=== PATIENT | female | born 1955 | race Caucasian/White ===

== ENCOUNTER 2018-06-21 12:50 | Emergency (ER) | payer BC, SELFPAY ==
[2018-06-21 12:52] VITALS: BP 161/79; PULSE 70; RESP 17; TEMP 36.8; O2SAT 100; BMI 19.6
[2018-06-21 12:59] VITALS: BP 149/74; PULSE 60; RESP 19; O2SAT 100
--- NOTE | 2018-06-21 13:15 | EKG12_ITS ---
Test Reason : PALPS Blood Pressure : / mmHG Vent. Rate : 068 BPM Atrial Rate : 068 BPM P-R Int : 140 ms QRS Dur : 090 ms QT Int : 410 ms P-R-T Axes : 065 062 061 degrees QTc Int : 435 ms Sinus rhythm with occasional Premature ventricular complexes Otherwise normal ECG Confirmed by TERRELL GALEAS ([id number]), editorial writer DONALDO CASTANEDA ([id number]) on 06/25/2018 8:31:26 AM Referred By: TEMITOPE/JEY Confirmed By:TERRELL GALEAS
--- NOTE | 2018-06-21 13:18 | EKG12_ITS ---
Test Reason : PALPS Blood Pressure : / mmHG Vent. Rate : 063 BPM Atrial Rate : 063 BPM P-R Int : 138 ms QRS Dur : 088 ms QT Int : 408 ms P-R-T Axes : 059 063 060 degrees QTc Int : 417 ms Normal sinus rhythm Possible Left atrial enlargement Borderline ECG Confirmed by TERRELL GALEAS ([id number]), science editor DONALDO CASTANEDA ([id number]) on 06/25/2018 8:31:15 AM Referred By: TEMITOPE/JEY Confirmed By:TERRELL GALEAS
--- NOTE | 2018-06-21 13:18 | ED.VISSUMM ---
- ER Visit Summary Date of Service: 06/21/18 Chief Complaint: Palpitations History of Present Illness: The patient is a 62 F presenting for evaluation secondary to palpitations. Patient reports that she has had a history of this in the past, she states that she saw a thermal intelligence analyst had a workup and they did not recommend any medications. Patient states that she is actually going to urgent care today because she injured her back 3 days ago while lifting. She states that she has some mild radiation to her left buttock denies any sort of bowel or bladder incontinence or fevers. She states that while she was at urgent care she was noted to have some occasional extra heartbeats and they recommended that she come immediately to the emergency department. She denies any recent infectious signs or symptoms abnormal weight loss weight gain heat or cold intolerance or changes in appetite. She is on no medications. Physical Examination: Vital signs are within normal limits, patient is afebrile. General: Patient is well-nourished well-developed and in no acute distress. Head: Normocephalic, atraumatic Eyes: Pupils equal round and reactive bilaterally, extra occular motion intact bialterally ENT: Moist mucous membranes Neck: Supple, no lymphadenopathy, no JVD, no meningismus CVS: Heart regular rate and rhythm, no murmurs, rubs or gallops, radial pulses 2+ bilaterally, occasional extrasystoles are noted Resp: Respirations nondistressed, lung sounds clear bilaterally Abdomen: Soft, nontender, nondistended, no palpable masses, normal bowel sounds Back: Nontender Extremities: Nontender, atraumatic, active full range of motion, no peripheral edema Skin: warm, no rashes, no petechia Neuro: Alert and oriented x 4, CN 2-12 intact, no lateralizing neurological defecits Psyc: Normal affect Test Results: EKG demonstrates a sinus rhythm of [address] segments normal T waves normal intervals and occasional PVCs. CBC chemistry and troponin are unremarkable, TSH normal. Emergency Department Course and Treatment: Patient presented secondary to palpitations. She did have evidence of occasional PVCs on telemetry monitoring as well as EKG. Workup was negative as noted above. I do not believe that she requires admission. Patient states that she has seen Dr. Ruggiero in the past, she was recommended to follow-up with him. Patient will be given a course of NSAID analgesia for her back pain. She will follow-up with primary care for that. Disposition: Discharge Impression: 1. Palpitations with PVCs 2. Lumbar strain This note was generated with [employer] dictation software. It may contain incorrect words, spelling, and punctuation that were not noted in review of the chart prior to signing ED Disposition - Plan for ED Patient: Disposition: Home or Assisted Living Chief Complaint: Palpitations Diagnosis: PVC (premature ventricular contraction) Instructions: Premature Ventricular Contractions Prescriptions: Naproxen [Naprosyn] 500 mg PO BID PRN #20 tab Additional Instructions: Followup with Dr. Ruggiero
--- NOTE | 2018-06-21 13:24 | NURSING ---
NO OLD EKGS
[2018-06-21 13:45] LABS: Absolute Lymphocyte Count 1.54 X10^3/ul (0.83-4.51); Absolute Neutrophil Count 3.2 X10^3/uL (2.0-7.7); Basophil# 0.02 X10^3/uL; Basophil% 0.4 % (0-1); Eosinophil# 0.08 X10^3/uL; Eosinophils% 1.6 % (0-5); Hematocrit 39.9 % (37-47); Lymphocyte # 1.54 X10^3/ul (4.0); Mean Corp Hgb Conc 32.6 g/gl (32-36); Mean Corpuscular Hgb 29.9 pg (27.0-32.0); Mean Corpuscular Volume 91.7 fL (81-99); Monocyte% 5.8 % (0-10); Neutrophil % 62.2 % (47-70); Platelet Count 150 K/mm3 (150-450); RBC Distribution Width CV 12.8 % (11.6-14.6); RBC Distribution Width SD 43.4 fl (35.1-43.9); Red Blood Count 4.35 M/mm3 (4.2-5.4); White Blood Count 5.1 K/mm3 (4.4-11.0)
[2018-06-21 13:46] LABS: POSITIVE COUNT NO; POSITIVE DIFFERENTIAL NO; POSITIVE MORPHOLOGY NO
[2018-06-21 14:01] LABS: Anion Gap 4 (5-15); BUN 17 mg/dL (7-18); BUN/Creat Ratio 28.8 RATIO (10-20); Calcium,Total 8.8 mg/dL (8.5-10.1); Chloride 105 mmol/L (98-107); Creatinine, Serum 0.59 mg/dL (0.55-1.02); EST Glomerular Filtration Rate 109 mL/min (>60); Est Glom Filt Rate - Afr Amer 132 mL/min (>60); Estimated Creatinine Clearance 77.57 ml/min; Glucose 95 mg/dL (74-106); Potassium 3.5 mmol/L (3.5-5.1); Sodium Level 140 mmol/L (136-145); Thyroid Stim Hormone (TSH) 2.14 uIU/mL (0.358-3.74)
[2018-06-21 15:01] VITALS: BP 120/71; PULSE 85; RESP 16; O2SAT 99
== END 2018-06-21 15:02 | disposition home or self-care (01) ==
PROVIDERS: Emergency Provider Emergency Medicine; Family Provider Internal Medicine; PCP Internal Medicine
DX: R00.2 Palpitations (principal); I49.3 Ventricular premature depolarization; S39.012A Strain of muscle, fascia and tendon of lower back, initial encounter; X50.9XXA Other and unspecified overexertion or strenuous movements or postures, initial encounter; Y93.9 Activity, unspecified; Y92.9 Unspecified place or not applicable
CPT/HCPCS: 80048; 84443; 84484; 85025; 93005; 99284; A4216

== ENCOUNTER → 2018-07-24 09:34 | Outpatient (CLI) | payer BC, SELFPAY ==
[2018-07-24 08:18] VITALS: BMI 20.3
--- NOTE | 2018-07-24 09:40 | RAD_ITS ---
STUDY: X-RAY CHEST REASON FOR EXAM: Female, 63 years old. Shortness of breath TECHNIQUE: 2 views COMPARISON: None. FINDINGS: The lungs are hyperinflated and emphysematous. There is no demonstrated pleural abnormality. Normal size heart. Normal mediastinum and asuncion. Normal visualized pulmonary arteries. Normal visualized aortic arch and descending thoracic aorta. Normal visualized thoracic spine. Normal visualized ribs, clavicles, and shoulders. There is no demonstrated abnormality of the visualized soft tissue structures of the upper abdomen. RAD/Chest PA and Lateral IMPRESSION: Emphysema. No pneumonia. Electronically Signed: Trevor Wilson MD at 5:40 EST Tel , Service support ,
[2018-07-24 11:15] LABS: BNP,B-Type NATRIURETIC PEPTIDE 31.4 pg/mL (0-100)
--- OUTSIDE RECORDS SUMMARY | 2018-09-18 17:32 | XMS RPT_ITS ---
:1955 Author Organization OHIP Support Name Relationship Address Phone [employer] [employer] [employer] Unavailable [address] + [address] + [place] [phone] [employer] [employer] [employer] Unavailable [address] + [address] MOOK Unavailable [address] + [place] [phone] [place] [employer] [employer] Unavailable [address] + [address] MOKO Unavailable [address] + [address] FARZANA Unavailable [address] + [place] [address] [place] [employer] Un[address] + [address] + [place], [place] [id number] [place], [place] [address]FARZANA Unavailable [address] + [place] [address] [place] [employer] Un[address] + [address] MOOK Un[address] + [place], [place] [phone] [place], [place] [address]FARZANA Unavailable [address] + [place] [address] [facility] [address] + [address] MOOK Unavailable [address] [phone] Un[address] + [place] [address] Care Team Providers Name Role Phone Zafar Grant Attending Unavailable Aníbal Smith Referring Unavailable Aníbal Smith Primary Care Unavailable Devonte Patricio Attending Unavailable Ganta, Sandrine Primary Care Unavailable Nancy Jackson Attending Unavailable Cristopher, [place] Attending Unavailable Ganta, Sandrine Referring Unavailable Cristopher, Kenneth Attending Unavailable Cristopher, [place] Referring Unavailable Ganta, Sandrien Primary Care Unavailable Cristopher, Kenneth Attending Unavailable Cristopher, Kenneth Referring Unavailable Ganta, Sandrine Primary Care Unavailable TESTRAKE, DIANNA Attending Unavailable GANTA, SANDRINE Attending Unavailable GANTA, SANDRINE Referring Unavailable GANTA, SANDRINE Referring Unavailable GANTA, SANDRINE Referring Unavailable GINETTE, HAYDEE (COOK LARDER) Referring Unavailable TESTRAKE, DIANNA Attending Unavailable TESTRAKE, DIANNA Referring Unavailable TESTRAKE, DIANNA Referring Unavailable GANTA, SANDRINE Attending Unavailable GANTA, SANDRINE Referring Unavailable GANTA, SANDRINE Referring Unavailable BERNHART, TAYLOR (COOK LARDER) Referring Unavailable BERNHART, TAYLOR (COOK LARDER) Attending Unavailable GANTA, SANDRINE Referring Unavailable BERNHART, TAYLOR (COOK LARDER) Referring Unavailable BERNHART, TAYLOR Attending Unavailable [facility] Referring Unavailable [facility] Primary Care Unavailable BERNHART, TAYLOR Referring Unavailable [facility] Primary Care Unavailable PROBLEMS PROBLEMS DATE TYPE CONDITION / CODE ATTENDING STATUS SOURCE 07/24/2018 Unknown R06.00 - Dyspnea, Cristopher, [place] Active [place] unspecified / Community R06.00(ICD-10) Hospital Repository 07/24/2018 Unknown R00.2 - Palpitations Cristopher, [place] Active [place] / R00.2(ICD-10) Community Hospital Repository 06/10/2018 Active Urinary tract BERNHART, Active [place] infection, site not [place] ([facility]) [facility] Other specified / [place] N39.0(ICD-10) Repository 09/18/2014 Active Overactive bladder / BERNHART, Active [place] N32.81(ICD-10) [place] ([facility]) Clinic Other [place] Repository 06/10/2018 Admitting Unknown / BERNHART, Active [place] [facility] diagnosis UNK(Unknown) [facility] [place] Repository 05/01/2018 Active Hypokalemia / NA Active [place] E87.6(ICD-10) Clinic Main [place] Repository 05/01/2018 Active Encounter for NA Active [place] screening for other Clinic Main viral diseases / [place] Z11.59(ICD-10) Repository 11/07/2017 Active 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 Main and autonomic [place] nervous system, Repository unspecified / D36.10(ICD-10) 11/07/2017 Active Pain in right ankle NA Active [place] and joints of right Clinic Main foot / [place] M25.571(ICD-10) Repository 10/25/2017 Active Encounter for NA Active [place] screening mammogram Clinic Main for malignant [place] neoplasm of breast / Repository Z12.31(ICD-10) 10/23/2017 Active Mixed hyperlipidemia NA [facility] / E78.2(ICD-10) Clinic Main [place] Repository 09/03/2017 Unknown Z02.1 - Encounter Zafar Grant Active [place] for pre-employment Community examination / Hospital Z02.1(ICD-10) Repository PROCEDURES PROCEDURES No Procedure Records FoundRESULTS RESULTS BNP,B-TYPE NATRIURETIC Collected: 07/24/2018 Status: F Source: [place] 9:59 AM [facility] REPOSITORY TYPE CODE TESTS RESULT OUT OF RANGE REFERENCE UNITS LAB L503.6620 0-100 pg/mL Normal B-TYPE 31.4 JOHN PEP Performed By: #### L503.6620 #### [facility] [address] [facility] [place], [address] CHEST PA AND LATERAL Observed: 07/24/2018 Status: F Source: [place] 9:37 AM [facility] REPOSITORY [facility] Imaging Services [address] [place] [address] Chest PA and Lateral MR#: [id number] Acct: [id number] Name: NIC CATES Rep #: [id number] : 1955 F 63 From: Trevor Wilson MD PCP: Sandrine Judd MD Status: REG CLI Study: Chest PA and Lateral Date of Exam: 07/24/18 Exam# [id number] Ordering Dr: Kenneth Nicholas MD STUDY: X-RAY CHEST REASON FOR EXAM: Female, 63 years old. Shortness of breath TECHNIQUE: 2 views COMPARISON: None. FINDINGS: The lungs are hyperinflated and emphysematous. There is no demonstrated pleural abnormality. Normal size heart. Normal mediastinum and asuncion. Normal visualized pulmonary arteries. Normal visualized aortic arch and descending thoracic aorta. Normal visualized thoracic spine. Normal visualized ribs, clavicles, and shoulders. There is no demonstrated abnormality of the visualized soft tissue structures of the upper abdomen. RAD/Chest PA and Lateral IMPRESSION: Emphysema. No pneumonia. Electronically Signed: Trevor Wilson MD at 5:40 EST Tel , Service support , CC: Sandrine Judd MD; Kenneth Nicholas MD Oceanographer Physical: Signed CARDIOLOGY VISIT Observed: 07/24/2018 Status: F Source: [place] REPORT 9:20 AM [facility] Heart [address] [place] [address] OFFICE VISIT Date of Service: 07/24/18 MR#: [id number] Acct: [id number] Name: NIC CATES Rep #: [id number] : 1955 Provider: Kenneth Nicholas MD Age/Sex: 63/F Location: [facility] [place] Status: Signed HPI HPI Chief Complaint: Initial visit Details: NIC CATES, is a 63 F who presents to the office today for an initial visit for evaluation of shortness of breath as well as palpitations. She said that she started developing this about a year and a half ago and saw a digital developer at the [facility] she had a 24-hour Holter monitor placed with demonstrated an average heart rate of 69 bpm and sinus rhythm minimum heart rate of 45 bpm and maximal heart rate of 140 bpm. Occasional ventricular ectopic beats were noted. The patient did complain of some shortness of breath which did not correlate with arrhythmias. She also underwent a stress echocardiographic evaluation where his ejection fraction was noted to be normal at rest and she exercised to 10.1 metabolic equivalents with no evidence of ischemia. Her estimated resting ejection fraction was noted with 60% with stage I diastolic dysfunction. She says that she started having these episodes of shortness of breath and palpitations again and wanted to know whether there was a cardiac etiology. She was recently seen in the emergency room cardiac enzymes were normal TSH was normal and potassium was 3.5. She has had no dizziness or diaphoresis no near syncope or syncope her blood pressure has been under good control. Her physical exam today demonstrates clear lung mclean regular rate and rhythm no pedal edema no midsystolic click present. Intake Vital Signs07/24/18 Height 5 ft 3 in 07/24/18 Weight: 115 lb 07/24/18 Body Mass Index (BMI) 20.3 07/24/18 Blood Pressure 126/7 H 07/24/18 Respiratory Rate 16 07/24/18 Pulse Rate 60 Intake Visit Reasons: recent ER for PVC, self ref'd Allergies amoxicillin Allergy (Verified 07/24/18 08:18) Unknown codeine Allergy (Verified 07/24/18 08:18) Unknown nitrofurantoin [From Macrobid] Allergy (Verified 07/24/18 08:18) Shortness of breath Sulfa (Sulfonamide Antibiotics) Allergy (Verified 07/24/18 08:18) Rash sulfamethoxazole [From Bactrim] Allergy (Verified 07/24/18 08:18) Rash trimethoprim [From Bactrim] Allergy (Verified 07/24/18 08:18) Rash Medications loratadine 10 mg tablet 10 mg PO QDAY 09/03/17 [History Confirmed 07/24/18] conjugated estrogens 0.625 mg/gram vaginal cream VAGINAL 30 Days #30 g 07/22/18 [History Confirmed 07/24/18] ergocalciferol (vitamin D2) 50,000 unit capsule PO 90 Days #13 cap 07/22/18 [History Confirmed 07/24/18] ascorbic acid (vitamin C) 500 mg capsule mg PO cap 07/24/18 [History Confirmed 07/24/18] cranberry 500 mg capsule 500 mg PO BID 07/24/18 [History Confirmed 07/24/18] [facility] Medical History Premature ventricular beats (Chronic) Arthritis (Chronic) Vertigo (Chronic) Seasonal allergies (Chronic) Head injury (Resolved) Surgical History History of bladder surgery (Resolved) History of hysterectomy (Resolved) History of tonsillectomy (Resolved) Liver donor (Resolved 2007) Family History Father Hypertension Mother Hypertension Brother Hypertension Social History Smoking Status: Former smoker quit date: 08/27/73 alcohol intake: current alcohol intake frequency: a few times a month ROS Const Const: Negative for fatigue, weakness, difficulty sleeping, frequent falls, excessive sweating or headache(s) Eyes Eyes: Negative for loss of peripheral vision, transient loss of vision, blurry vision, tunnel vision or double vision ENT ENT: Negative for headache(s), dizziness, Nosebleed/epistaxis or balance problems Cardio Chest Pain: No Palpitations: Yes feels like its: pounding, thumping Edema: None Muscle aches with walking: None Resp Respiratory: Positive for SOB with activity (Increase in [place]OB[place]); negative for SOB at rest, SOB orthopnea\SOB lying down, paroxysmal nocturnal dyspnea or Cough GI GI: Negative nausea, heartburn, black,tarry stools or vomiting : Negative for hematuria Musc Musc: Negative for balance problems, muscle aches/ myalgia, muscle weakness or joint pain Skin Skin: Negative non-healing lesions, unusual bruising or rash Neuro Neuro: Negative for weakness, frequent falls, headache(s), blurry vision, double vision, dizziness, lightheadedness, orthostatic symptoms, near syncope, syncope or lack of coordination [place] Hematologic/Lymphatic: Negative for easy bruising or easy bleeding Endo Endo: Negative for fatigue, excessive sweating or increased thirst/drinking Psych Psych: Negative for anxiety or depression Allergy Allergy/Immunology: Negative for hives, Negative for rash Cardiology Exam Const Appearance: cooperative, healthy appearing, well developed, well groomed and no acute distress Nutritional Appearance: well nourished and average body habitus Orientation: alert, awake and oriented x3 Head Head: normal to inspection, normocephalic and atraumatic Ears: hearing grossly normal bilaterally and external ears normal Nose: external nose normal, nasal mucous membranes and turbinates normal, nares normal, septum normal, no nasal discharge Face and Sinus: face symmetric Mouth: oral mucosae normal, tongue normal, oropharynx normal and moist mucous membranes Teeth and gingiva: dentition normal Throat: posterior oropharynx normal, tonsils normal and uvula midline Eyes General: appearance normal, both eyes and all related structures Eyelids: eyelids normal Conjunctivae: conjunctivae normal Pupils: PERRL, normal by confrontation and accommodation normal EOM: EOM intact bilaterally Neck Neck: normal visual inspection, trachea midline and no JVD JVD: +5 Carotids: normal carotid upstroke and bounding pulses Chest Chest inspection: normal inspection of the chest, symmetric chest movement and normal respiratory effort Auscultation: Bilateral: Clear to Auscultation Cardio Palpation: normal PMI Rate: regular rate Rhythm: regular rhythm Heart sounds: S1 normal, S2 normal and normal, physiologic split S2; negative rub, gallop or murmur GI GI: normal to inspection, soft, no hepatosplenomegaly and bowel sounds present Neuro General: alert, awake, oriented x3, no focal sensory deficit, gait normal and moves all extremities Skin Skin: no rashes or lesions noted Extremities Pulses: Normal: Right Femoral Pulse, Left Femoral Pulse, Right Dorsalis Pedis Pulse, Left Dorsalis Pedis Pulse, Right Posterior Tibial Pulse, Left Posterior Tibial Pulse, Right Radial Pulse, Left Radial Pulse Lower Extremity Edema: None: Bilateral Musculoskel Musculoskeletal: No joint tenderness Psych Psychological: normal affect Assessment AND Plan 1. Dyspnea R06.00 Plan She has had some episodes of which do not necessarily appear to be exertionally related. My recommendation will be for us to obtain a chest x-ray as well as a natruretic peptide level. Her previous echocardiogram was noted to be normal and I do not think there is a reason to repeat this. Depending on the findings further recommendations will be made. Orders Orders: 2. Intermittent palpitations R00.2 Plan She has complained of intermittent palpitations. I would recommend that we obtain a 24-hour Holter monitor to characterize the above. Depending on these findings further recommendations will be made. At this time I did reassure her that in view of the infrequency based on the previous 24-hour Holter monitor as well as a preserved ejection fraction I do not think there is a reason to pursue any medical management. Potassium intake should be increased [id number] as well as with potassium supplementation. Thank you for allowing me to participate in the care of your patient. Please don't hesitate to call if any issues arise Orders Orders: Plan Detail Other Medications New: Follow Up 6 Weeks (rapid outsole stitcher) Coding Level of Care Code Off vis,new,level 4 Diagnoses Dyspnea R06.00 Intermittent palpitations R00.2 Coding Level of Care Code Off vis,new,level 4 Diagnoses Dyspnea R06.00 Intermittent palpitations R00.2 07/24/18 0920 <Electronically signed by Kenneth Nicholas MD> Date Kenneth Nicholas MD Cosigner Signature: Date (if applicable) CC: Sandrine Judd MD 12 LEAD ELECTROCARDIOGRAM Observed: 2018 Status: F Source: [place] 8:32 AM [facility] Cardiovascular Services [address] [place] [id number] 12 Lead EKG 06/21/18 1305 MR#: [id number] Acct: [id number] Name: NIC CATES Rep #: [id number] : 1955 62 From: Terry Galeas MD Attending Dr: Status: DEP ER Ordering Dr: Devonte Patricio MD Date: 06/21/18 Location: ED Sex: F C Admitted: Test Reason : PALPS Blood Pressure : / mmHG Vent. Rate : 068 BPM Atrial Rate : 068 BPM P-R Int : 140 ms QRS Dur : 090 ms QT Int : 410 ms P-R-T Axes : 065 062 061 degrees QTc Int : 435 ms Sinus rhythm with occasional Premature ventricular complexes Otherwise normal ECG Confirmed by TERRY GALEAS ([id number]), electronic news gathering editor DONALDO CASTANEDA ([id number]) on 2018 8:31:26 AM Referred By: TEMITOPE/JEY Confirmed By:TERRY GALEAS 06/25/18 0831 Date Terry Galeas MD CC: Sandrine Judd MD; Devonte Patricio Signed 12 LEAD ELECTROCARDIOGRAM Observed: 2018 Status: F Source: [place] 8:31 AM [facility] Cardiovascular Services [address] [place] [address] 12 Lead EKG 06/21/18 1306 MR#: [id number] Acct: [id number] Name: NIC CATES Rep #: [id number] : 1955 62 From: Terry Galeas MD Attending Dr: Status: DEP ER Ordering Dr: Devonte Patricio MD Date: 06/21/18 Location: ED Sex: F C Admitted: Test Reason : PALPS Blood Pressure : / mmHG Vent. Rate : 063 BPM Atrial Rate : 063 BPM P-R Int : 138 ms QRS Dur : 088 ms QT Int : 408 ms P-R-T Axes : 059 063 060 degrees QTc Int : 417 ms Normal sinus rhythm Possible Left atrial enlargement Borderline ECG Confirmed by TERRY GALEAS ([id number]), electronic news gathering editor DONALDO CASTANEDA ([id number]) on 2018 8:31:15 AM Referred By: [place] Confirmed By:TERRY GALEAS 06/25/18 0831 Date Terry Galeas MD CC: Sandrine Judd MD; Devonte Patricio Signed EMERGENCY DEPARTMENT Observed: 06/21/2018 Status: F Source: [place] SUMMARY 5:47 PM [facility] REPOSITORY [facility] Medical Records Department [address] [place] [address] Emergency Department Summary 06/21/18 1318 MR#: [id number] Acct: [id number] Name: LOANNIC Kim Rep #: [id number] : 1955 62 From: Devonte Patricio MD PCP: Sandrine Judd MD Status: DEP ER - ER Visit Summary Date of Service: 06/21/18 Chief Complaint: Palpitations History of Present Illness: The patient is a 62 F presenting for evaluation secondary to palpitations. Patient reports that she has had a history of this in the past, she states that she saw a digital developer had a workup and they did not recommend any medications. Patient states that she is actually going to urgent care today because she injured her back 3 days ago while lifting. She states that she has some mild radiation to her left buttock denies any sort of bowel or bladder incontinence or fevers. She states that while she was at urgent care she was noted to have some occasional extra heartbeats and they recommended that she come immediately to the emergency department. She denies any recent infectious signs or symptoms abnormal weight loss weight gain heat or cold intolerance or changes in appetite. She is on no medications. Physical Examination: Vital signs are within normal limits, patient is afebrile. General: Patient is well-nourished well-developed and in no acute distress. Head: Normocephalic, atraumatic Eyes: Pupils equal round and reactive bilaterally, extra occular motion intact bialterally ENT: Moist mucous membranes Neck: Supple, no lymphadenopathy, no JVD, no meningismus CVS: Heart regular rate and rhythm, no murmurs, rubs or gallops, radial pulses 2+ bilaterally, occasional extrasystoles are noted Resp: Respirations nondistressed, lung sounds clear bilaterally Abdomen: Soft, nontender, nondistended, no palpable masses, normal bowel sounds Back: Nontender Extremities: Nontender, atraumatic, active full range of motion, no peripheral edema Skin: warm, no rashes, no petechia Neuro: Alert and oriented x 4, CN 2-12 intact, no lateralizing neurological defecits Psyc: Normal affect Test Results: EKG demonstrates a sinus rhythm of [address] segments normal T waves normal intervals and occasional PVCs. CBC chemistry and troponin are unremarkable, TSH normal. Emergency Department Course and Treatment: Patient presented secondary to palpitations. She did have evidence of occasional PVCs on telemetry monitoring as well as EKG. Workup was negative as noted above. I do not believe that she requires admission. Patient states that she has seen Dr. Ruggiero in the past, she was recommended to follow-up with him. Patient will be given a course of NSAID analgesia for her back pain. She will follow-up with primary care for that. Disposition: Discharge Impression: 1. Palpitations with PVCs 2. Lumbar strain This note was generated with Gera-ITation software. It may contain incorrect words, spelling, and punctuation that were not noted in review of the chart prior to signing ED Disposition - Plan for ED Patient: Disposition: Home or Assisted Living Chief Complaint: Palpitations Diagnosis: PVC (premature ventricular contraction) Instructions: Premature Ventricular Contractions Prescriptions: Naproxen [Naprosyn] 500 mg PO BID PRN #20 tab Additional Instructions: Followup with Dr. Ruggiero What to do if you have Problems For any increased pain, shortness of breath, bleeding, nausea or vomiting, chest pain, or any unexpected problems, contact your Primary Care Provider. Call [facility] ([phone]) or report to the closest Emergency Room. Call 911 if necessary. 06/21/18 1747 <Electronically signed by Devonte Patricio MD> Date Devonte Patricio MD Cosigner Signature (If Indicated): Date CC: Sandrine Judd MD CBC W/DIFF, AUTOMATED Collected: 06/21/2018 Status: F Source: [place] 1:30 PM [facility] REPOSITORY TYPE CODE TESTS RESULT OUT OF RANGE REFERENCE UNITS LAB L100.1000 4.4-11.0 K/mm3 Normal WBC 5.1 LAB L100.1200 4.2-5.4 M/mm3 Normal RBC 4.35 LAB L100.1300 12.0-15.0 g/dl Normal HGB 13.0 LAB L100.1400 37-47 % Normal HCT 39.9 LAB L100.1500 81-99 fL Normal MCV 91.7 LAB L100.1600 27.0-32.0 pg Normal MCH 29.9 LAB L100.1700 32-36 g/gl Normal MCHC 32.6 LAB L100.1810 11.6-14.6 % Normal RDW CV 12.8 LAB L100.1820 35.1-43.9 fl Normal RDW SD 43.4 LAB L100.1900 150-450 K/mm3 Normal PLT 150 LAB L100.2000 6.2-12.0 fl Normal MPV 10.0 LAB L100.2100 47-70 % Normal NEUT% 62.2 LAB L100.2200 19-41 % Normal LY% 30.0 LAB L100.2300 0-10 % Normal MONO% 5.8 LAB L100.2400 0-5 % Normal EO% 1.6 LAB L100.2500 0-1 % Normal BASO% 0.4 LAB L100.2550 0.0-0.9 % Normal IM GRAN % 0.000 Result Comment: IG% - Immature Granulocytes (promyelocytes, myelocytes and metamyelocytes) > 1% indicates that a LEFT SHIFT is Present. LAB L100.2620 2.0-7.7 X10 3/uL Normal Absolute Neut 3.2 LAB L100.2720 0.83-4.51 X10 3/ul Normal Absolute Lymph 1.54 Performed By: #### L100.0100 #### [facility] [address] [place], [place], [id number] BASIC METABOLIC Collected: 06/21/2018 Status: F Source: [place] PROFILE (BMP) 1:30 PM [facility] REPOSITORY TYPE CODE TESTS RESULT OUT OF RANGE REFERENCE UNITS LAB L501.0100 74-106 mg/dL Normal GLU 95 Result Comment: Please note revised GLUCOSE reference range effective 2017. LAB L501.1000 7-18 mg/dL Normal BUN 17 LAB L501.1100 0.55-1.02 mg/dL Normal CREAT,SERUM 0.59 Result Comment: The validity of the calculated GFR AND GFRAA in patients over 70 years has not been determined. Clinical correlation is essential. LAB L501.1110 >60 mL/min Normal EST GFR 109 Result Comment: Non- GFR Calc LAB L501.1115 >60 mL/min Normal EST GFR - AA 132 Result Comment: GFR Calc LAB L501.1255 ml/min Normal Estimated CRCL 77.57 LAB L501.1300 10-20 RATIO High BUN/CRE 28.8 LAB L501.2200 8.5-10 mg/dL Normal .1 CA 8.8 LAB L501.5300 136-14 mmol/L Normal 5 NA 140 LAB L501.5600 3.5-5. mmol/L Normal 1 K 3.5 LAB L501.5900 98-107 mmol/L Normal CL 105 LAB L501.6100 21.0-3 mmol/L Normal 2.0 CO2 31.0 LAB L501.6200 5-15 Low GAP 4 Performed By: #### L500.2500, L501.4010, L501.9520 #### [facility] [address] [place], [place], [id number] TROPONIN-I Collected: 06/21/2018 Status: F Source: [place] 1:30 PM [facility] REPOSITORY TYPE CODE TESTS RESULT OUT OF RANGE REFERENCE UNITS LAB L501.4010 <0.045 ng/mL Normal < 0.015 TROPONIN-I Result Comment: TROPONIN-I EXPECTED VALUES <0.045 Negative 0.045 - 0.590 Consistent with Cardiac Damage > OR = 0.600 Critical Value Not every elevated troponin is indicative of VA. These values should be used with clinical judgement in examining the patient's clinical picture for diagnosis. To establish a diagnosis of VA versus myocardial injury, there must be a demonstrated rise and/or fall in the troponin values, in addition to ischemic symptoms, EKG changes, new regional wall motion abnormality, and/or angiographical evidence. PLEASE NOTE: REFERENCE RANGES EDITED 18 Performed By: #### L500.2500, L501.4010, L501.9520 #### [facility] [address] [facility] [place], [place], [id number] THYROID STIM HORMONE Collected: 06/21/2018 Status: F Source: [place] (TSH) 1:30 PM [facility] REPOSITORY TYPE CODE TESTS RESULT OUT OF RANGE REFERENCE UNITS LAB L501.9520 0.358-3.74 uIU/mL Normal TSH 2.14 Performed By: #### L500.2500, L501.4010, L501.9520 #### [facility] [address] [facility] [place], [place], [id number] PROGRESS Observed: 06/21/2018 Status: COMPLETED Source: [place] 12:36 PM [facility] REPOSITORY HNO ID: [id number] Author: Caren Peterson Service: (none) Author Type: Physician Sewing Machine Assembler Type: Progress Notes Filed: 06/24/2018 8:26 AM Note Text: 06/21/2018 Patient presents with: Back Pain SUBJECTIVE: This is a 62 year old that is here today for Complaint(s) of left lower back pain x 3-4 days. She was seen by the chiropractor twice and no significant . She also mentions feeling like her heart rate has been irregular the last 24 hours. Admits to feeling somewhat SOB and occasionally dizzy. Denies chest pain. Hx of possible PVCs, uncertain. No hx of Afib. PAST MEDICAL HISTORY Diagnosis Date - Arthritis - Bladder infection - Internal hemorrhoids without mention of complication - Intestinal infection due to Clostridium difficile 2007 - PMH - PAST MEDICAL HISTORY OF vertigo - PMH - PAST MEDICAL HISTORY OF prolapsed bladder - Skin cancer - Unspecified constipation - UTI (urinary tract infection) ALLERGIES Amoxil [Amoxicillin]; Bactrim [Sulfamethoxazole-Trimethoprim]; Codeine; Macrobid [Nitrofurantoin Monohyd/M-Cryst]; Penicillins; Zithromax Z-Juliet [Azithromycin] MEDICATIONS Current Outpatient Prescriptions: conjugated estrogens (PREMARIN) vaginal cream Use 0.5 g vaginally twice a week. ciprofloxacin HCl (CIPRO ORAL) Take by mouth. predniSONE (DELTASONE) 20 mg tablet Prednisone 40 mg (2-20mg tablets) po QD for 5 days (Patient not taking: Reported on 03/27/2018 ) potassium chloride SR (MICRO-K) 10 mEq CR capsule Take 1 capsule by mouth once daily. (Patient not taking: Reported on 06/10/2018 ) ergocalciferol, vitamin D2, (VITAMIN D) 50,000 unit capsule Take 1 capsule by mouth once each week. TAKE ON MONDAYS urea (CARMOL) 40 % crea Apply 1 application to affected area as needed. (Patient not taking: Reported on 03/27/2018 ) conjugated estrogens (PREMARIN) vaginal cream Use 0.5 g vaginally once each week. LORazepam (ATIVAN) 0.5 mg tab Take 1 tablet by mouth three times daily as needed. (Patient not taking: Reported on 03/27/2018 ) loratadine (CLARITIN) 10 mg ORAL tablet Take one(1) tablet daily as needed for allergy symptoms. (Patient not taking: No sig reported) No current facility-administered medications for this visit. 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 OBJECTIVE: BP 100/80 Pulse 70 Temp 36.3 ?C (97.4 ?F) (Left Tympanic) Resp 16 Wt 51.7 kg (114 lb) LMP 01/30/2006 BMI 20.19 kg/m? APPEARANCE Well appearing, alert, in no acute distress, well-hydrated, well nourished. HEART regular rate, irregular rhythm, no murmur ASSESSMENT/PLAN: 1. Irregular heart rhythm - ICD9: 427.9, ICD10: I49.9 Question PVCs, however, as she is symptomatic recommend evaluation in ER for higher level of care Patient refuses to squad. Patient referred to ER, agrees to go. The patient indicates understanding of these issues and agrees with the plan. Caren Peterson PA-C CNOV Observed: 06/21/2018 Status: COMPLETED Source: [place] 12:30 PM [facility] REPOSITORY Office Visit (WSTR) NIC CATES ([id number]) 1955 F Date Time Provider Department 06/21/18 12:30 PM CAREN PETERSON) [facility] During your visit today, we recorded the following information about you: Temperature Pulse Respiration Blood pressure 97.4 degrees 70/minute 16/minute 100/80 Weight 51.7 kg Caren Peterson PA-C 06/24/2018 8:26 AM Signed 06/21/2018 Patient presents with: Back Pain SUBJECTIVE: This is a 62 year old that is here today for Complaint(s) of left lower back pain x 3-4 days. She was seen by the chiropractor twice and no significant . She also mentions feeling like her heart rate has been irregular the last 24 hours. Admits to feeling somewhat SOB and occasionally dizzy. Denies chest pain. Hx of possible PVCs, uncertain. No hx of Afib. PAST MEDICAL HISTORY Diagnosis Date - Arthritis - Bladder infection - Internal hemorrhoids without mention of complication - Intestinal infection due to Clostridium difficile 2007 - PMH - PAST MEDICAL HISTORY OF vertigo - PMH - PAST MEDICAL HISTORY OF prolapsed bladder - Skin cancer - Unspecified constipation - UTI (urinary tract infection) ALLERGIES Amoxil [Amoxicillin]; Bactrim [Sulfamethoxazole-Trimethoprim]; Codeine; Macrobid [Nitrofurantoin Monohyd/M-Cryst]; Penicillins; Zithromax Z-Juliet [Azithromycin] MEDICATIONS Current Outpatient Prescriptions: conjugated estrogens (PREMARIN) vaginal cream Use 0.5 g vaginally twice a week. ciprofloxacin HCl (CIPRO ORAL) Take by mouth. predniSONE (DELTASONE) 20 mg tablet Prednisone 40 mg (2-20mg tablets) po QD for 5 days (Patient not taking: Reported on 03/27/2018 ) potassium chloride SR (MICRO-K) 10 mEq CR capsule Take 1 capsule by mouth once daily. (Patient not taking: Reported on 06/10/2018 ) ergocalciferol, vitamin D2, (VITAMIN D) 50,000 unit capsule Take 1 capsule by mouth once each week. TAKE ON MONDAYS urea (CARMOL) 40 % crea Apply 1 application to affected area as needed. (Patient not taking: Reported on 03/27/2018 ) conjugated estrogens (PREMARIN) vaginal cream Use 0.5 g vaginally once each week. LORazepam (ATIVAN) 0.5 mg tab Take 1 tablet by mouth three times daily as needed. (Patient not taking: Reported on 03/27/2018 ) loratadine (CLARITIN) 10 mg ORAL tablet Take one(1) tablet daily as needed for allergy symptoms. (Patient not taking: No sig reported) No current facility-administered medications for this visit. 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 OBJECTIVE: BP 100/80 Pulse 70 Temp 36.3 ?C (97.4 ?F) (Left Tympanic) Resp 16 Wt 51.7 kg (114 lb) LMP 01/30/2006 BMI 20.19 kg/m? APPEARANCE Well appearing, alert, in no acute distress, well- hydrated, well nourished. HEART regular rate, irregular rhythm, no murmur ASSESSMENT/PLAN: 1. Irregular heart rhythm - ICD9: 427.9, ICD10: I49.9 Question PVCs, however, as she is symptomatic recommend evaluation in ER for higher level of care Patient refuses to squad. Patient referred to ER, agrees to go. The patient indicates understanding of these issues and agrees with the plan. Caren Peterson PA-C Referring Provider: SELF [[id number]] Allergies As of Date: 06/21/2018 Noted Allergy Reaction AMOXIL (AMOXICILLIN) 05/10/2005 4 - Hives Comments: uncertain BACTRIM (SULFAMETHOXAZOLE-TRIMETH*04/08/2018 4 - Hives Comments: Hives to torso and legs CODEINE 06/15/2005 8 - GI Upset MACROBID (NITROFURANTOIN MONOHYD/*04/08/2018 14 - Other: See Comments Comments: Developed weakness, fatigue, SOB, fever, nausea PENICILLINS 06/15/2005 2 - Rash ZITHROMAX Z-JULIET (AZITHROMYCIN) 06/15/2005 8 - GI Upset Comments: She can take this Date Reviewed: 06/21/2018 Reviewed by: Denisha Sanchez Ma - Fully Assessed Reason for Visit: Back Pain [12] Primary Visit Diagnosis:Irregular heart rhythm [I49.9] Prescriptions as of 06/21/2018 Sig: CONJUGATED ESTROGENS 0.625 MG* Use 0.5 g vaginally twice a w* CIPRO ORAL Take by mouth. PREDNISONE 20 MG TABLET Prednisone 40 mg (2-20mg tabl* Patient not taking: Reported on 03/27/2018 POTASSIUM CHLORIDE ER 10 MEQ * Take 1 capsule by mouth once * Patient not taking: Reported on 06/10/2018 ERGOCALCIFEROL (VITAMIN D2) 5* Take 1 capsule by mouth once * UREA 40 % TOPICAL CREAM Apply 1 application to affect* Patient not taking: Reported on 03/27/2018 CONJUGATED ESTROGENS 0.625 MG* Use 0.5 g vaginally once each* LORAZEPAM 0.5 MG TABLET Take 1 tablet by mouth three * Patient not taking: Reported on 03/27/2018 LORATADINE 10 MG TABLET Take one(1) tablet daily as n* Patient not taking: No sig reported Problem List As Of Date 06/21/2018 Noted Resolved Osteopenia [M85.80] INVALID FOR* More... Constipation [K59.00] INVALID FOR* Donor for liver transplant [Z52.6] INVALID FOR* Abdominal adhesions [K66.0] INVALID FOR* Abdominal pain [R10.9] INVALID FOR* OA (osteoarthritis) [M19.90] INVALID FOR* Lumbar stenosis [M48.061] INVALID FOR* More... Low back pain radiating to left leg [M54.5, M79*INVALID FOR* Overactive bladder [N32.81] INVALID FOR* Ganglion cyst of finger of right hand [M67.441] INVALID FOR* UTI (urinary tract infection) [N39.0] INVALID FOR* Encounter Status:Closed by CAREN PETERSON PA-C on 06/24/18 SHERWIN Observed: 06/13/2018 Status: COMPLETED Source: [place] 12:00 AM [facility] [place] REPOSIT[facility] Telephone (UROLAE) NIC CATES ([id number]) 1955 F Date Time Provider Department 06/13/18 TAYOLR CEVALLOS CNP During your visit today, we recorded the following information about you: Taylor Cevallos APRN.IVÁN 06/13/2018 12:33 PM Signed Please call patient, Renal US is normal, urine culture is negative for infection. Terrie Mosquera Cma 06/13/2018 12:42 PM Signed I have attempted to contact this patient by phone to return their call, schedule an appointment, discuss lab results, etc. Left message to call back. Terrie Mosquera [facility] 06/14/2018 12:04 PM Signed Left message to call office to advise patient of below. Terrie Lima RN, RN 06/14/2018 12:25 PM Addendum Left vm on patient's voicemail regarding results below and to call the office if she has any questions. MARIO Samuel [facility] 06/20/2018 10:09 AM Signed Patient notified. Terrie Mosquera Cma Allergies As of Date: 06/13/2018 Noted Allergy Reaction AMOXIL (AMOXICILLIN) 05/10/2005 4 - Hives Comments: uncertain BACTRIM (SULFAMETHOXAZOLE-TRIMETH*04/08/2018 4 - Hives Comments: Hives to torso and legs CODEINE 06/15/2005 8 - GI Upset MACROBID (NITROFURANTOIN MONOHYD/*04/08/2018 14 - Other: See Comments Comments: Developed weakness, fatigue, SOB, fever, nausea PENICILLINS 06/15/2005 2 - Rash ZITHROMAX Z-JULIET (AZITHROMYCIN) 06/15/2005 8 - GI Upset Comments: She can take this Date Reviewed: 06/10/2018 Reviewed by: Taylor ([facility]) Mart - Fully Assessed Reason for Visit: Results [95] Prescriptions as of 06/13/2018 Sig: CONJUGATED ESTROGENS 0.625 MG* Use 0.5 g vaginally twice a w* CIPRO ORAL Take by mouth. PREDNISONE 20 MG TABLET Prednisone 40 mg (2-20mg tabl* Patient not taking: Reported on 03/27/2018 POTASSIUM CHLORIDE ER 10 MEQ * Take 1 capsule by mouth once * Patient not taking: Reported on 06/10/2018 ERGOCALCIFEROL (VITAMIN D2) 5* Take 1 capsule by mouth once * UREA 40 % TOPICAL CREAM Apply 1 application to affect* Patient not taking: Reported on 03/27/2018 CONJUGATED ESTROGENS 0.625 MG* Use 0.5 g vaginally once each* LORAZEPAM 0.5 MG TABLET Take 1 tablet by mouth three * Patient not taking: Reported on 03/27/2018 LORATADINE 10 MG TABLET Take one(1) tablet daily as n* Patient not taking: No sig reported Problem List As Of Date 06/13/2018 Noted Resolved Osteopenia [M85.80] INVALID FOR* More... Constipation [K59.00] INVALID FOR* Donor for liver transplant [Z52.6] INVALID FOR* Abdominal adhesions [K66.0] INVALID FOR* Abdominal pain [R10.9] INVALID FOR* OA (osteoarthritis) [M19.90] INVALID FOR* Lumbar stenosis [M48.061] INVALID FOR* More... Low back pain radiating to left leg [M54.5, M79*INVALID FOR* Overactive bladder [N32.81] INVALID FOR* Ganglion cyst of finger of right hand [M67.441] INVALID FOR* UTI (urinary tract infection) [N39.0] INVALID FOR* Encounter Status:Closed by TAYLOR CEVALLOS on 06/13/18 PROGRESS Observed: 06/12/2018 Status: COMPLETED Source: [place] 1:43 PM [facility] REPOSITORY O ID: [id number] Author: Estelle Brown Rdms Service: (none) Author Type: (none) Type: Progress Notes Filed: 06/12/2018 1:44 PM Note Text: Radiology Service Progress Note PATIENT NAME: Nic Cates DATE OF SERVICE: June 12, 2018 TIME: 1:43 PM PATIENT IDENTITY VERIFICATION COMPLETED USING TWO (2) METHODS: Patient confirmed name verbally and Date of . PATIENT GENDER DATA: Female. status: : No status: NO. PATIENT RELEVANT IMPLANT DATA REVIEWED: Not Applicable RADIOLOGY DEPARTMENT: Ultrasound PERIPHERAL IV DATA: Not applicable SIGNED BY: Estelle Brown Rdms June 12, 2018 1:43 PM US KIDNEY/BLADDER Observed: 06/12/2018 Status: F Source: [place] 1:43 PM [facility] REPOSITORY * * *Final Report* * * DATE OF EXAM: Jun 12 2018 1:43PM [facility] 1055 - US KIDNEY/BLADDER / PROCEDURE REASON: Urinary tract infection without hematuria, site unspecified * * * * Physician Interpretation * * * * EXAMINATION: RENAL ULTRASOUND CLINICAL HISTORY: Urinary tract infection without hematuria, site unspecified TECHNIQUE: Sonography of the kidneys and urinary bladder was performed. Images were obtained and stored in a permanent archive. MQ: UR_1 COMPARISON: CT abdomen and pelvis dated 05/03/2012. RESULT: Right Kidney: -Renal length: 11.4 cm -Parenchyma: Normal parenchymal echogenicity. Normal parenchymal thickness. -Collecting system: No hydronephrosis. -Calculus: No echogenic, shadowing calculus. -Lesion: There is an approximately 1.1 x 1.0 x 1.0 cm right renal cyst. Left Kidney: -Renal length: 11.7 cm -Parenchyma: Normal parenchymal echogenicity. Normal parenchymal thickness. -Collecting system: No hydronephrosis. -Calculus: No echogenic, shadowing calculus. -Lesion: None. Bladder: There is a prevoid urinary bladder volume of 6.3 cc. Postvoid residual of 1.1 cc. IMPRESSION: No hydronephrosis. Simple right renal cyst. 1.1 cc postvoid residual. Oceanographer Physical[facility] Transcribe Date/Time: Jun 12 2018 2:00P Dictated by : RINA URBAN MD This examination was interpreted and the report reviewed and electronically signed by: RINA URBAN MD on Jun 12 2018 4:18PM EST [id number] Observed: 06/12/2018 Status: COMPLETED Source: [place] 12:00 AM [facility] REPOSITORY Telephone (UROLAE) NIC CATES ([id number]) 1955 F Date Time Provider Department 06/12/18 TAYLOR CEVALLOS (CARLOS ABERNATHY During your visit today, we recorded the following information about you: Taylor Cevallos APRN.CNP 06/12/2018 2:05 PM Signed Please call patient, urine culture is negative for infection. Jacky Nguyen, RN, RN 06/12/2018 2:10 PM Signed Left message on phone to return call to office. Regarding result of MARICRUZ Jacky Nguyen RN Blanca Anderson Utility Agent 06/13/2018 9:17 AM Signed Lm to return our call to inform of message below Catrachita Lima RN, RN 06/14/2018 12:12 PM Signed Informed patient of C+S results, Satisfied with results, [facility], requests that she be contacted when those results come back, will wait to hear back on those tests, per patient. Catrachita Lima RN Allergies As of Date: 06/12/2018 Noted Allergy Reaction AMOXIL (AMOXICILLIN) 05/10/2005 4 - Hives Comments: uncertain BACTRIM (SULFAMETHOXAZOLE-TRIMETH*04/08/2018 4 - Hives Comments: Hives to torso and legs CODEINE 06/15/2005 8 - GI Upset MACROBID (NITROFURANTOIN MONOHYD/*04/08/2018 14 - Other: See Comments Comments: Developed weakness, fatigue, SOB, fever, nausea PENICILLINS 06/15/2005 2 - Rash ZITHROMAX Z-JULIET (AZITHROMYCIN) 06/15/2005 8 - GI Upset Comments: She can take this Date Reviewed: 06/10/2018 Reviewed by: Taylor ([facility]) Mart - Fully Assessed Reason for Visit: Results [95] Prescriptions as of 06/12/2018 Sig: CONJUGATED ESTROGENS 0.625 MG* Use 0.5 g vaginally twice a w* CIPRO ORAL Take by mouth. PREDNISONE 20 MG TABLET Prednisone 40 mg (2-20mg tabl* Patient not taking: Reported on 03/27/2018 POTASSIUM CHLORIDE ER 10 MEQ * Take 1 capsule by mouth once * Patient not taking: Reported on 06/10/2018 ERGOCALCIFEROL (VITAMIN D2) 5* Take 1 capsule by mouth once * UREA 40 % TOPICAL CREAM Apply 1 application to affect* Patient not taking: Reported on 03/27/2018 CONJUGATED ESTROGENS 0.625 MG* Use 0.5 g vaginally once each* LORAZEPAM 0.5 MG TABLET Take 1 tablet by mouth three * Patient not taking: Reported on 03/27/2018 LORATADINE 10 MG TABLET Take one(1) tablet daily as n* Patient not taking: No sig reported Problem List As Of Date 06/12/2018 Noted Resolved Osteopenia [M85.80] INVALID FOR* More... Constipation [K59.00] INVALID FOR* Donor for liver transplant [Z52.6] INVALID FOR* Abdominal adhesions [K66.0] INVALID FOR* Abdominal pain [R10.9] INVALID FOR* OA (osteoarthritis) [M19.90] INVALID FOR* Lumbar stenosis [M48.061] INVALID FOR* More... Low back pain radiating to left leg [M54.5, M79*INVALID FOR* Overactive bladder [N32.81] INVALID FOR* Ganglion cyst of finger of right hand [M67.441] INVALID FOR* UTI (urinary tract infection) [N39.0] INVALID FOR* Encounter Status:Closed by TAYLOR CEVALLOS on 06/12/18 Observed: 06/10/2018 Status: F Source: [facility] URINE 1:00 PM [facility] REPOSITORY Test performed at [facility] <10,000 CFU/ml gram positive organisms cultured. No further identification or susceptibility testing will be performed. Plates will be held for 5 days. Performed By: #### C_URI #### [place] [id number] PROGRESS Observed: 06/10/2018 Status: COMPLETED Source: [place] 11:32 AM CLINIC OTHER [facility] REPOSITORY HNO ID: [id number] Author: Taylor (Iván) Mart Service: (none) Author Type: Nurse Practitioner Type: Progress Notes Filed: 06/10/2018 12:10 PM Note Text: NEW PATIENT HISTORY AND PHYSICAL EXAM HISTORY OF PRESENT ILLNESS Nic Cates is a 62 year old female who presents today as a new patient with recurrent bladder infections. 3 UTI's in the past year. Last 2 urine cultures showed klebsiella. Typically has chills and urgency with infections. No symptoms today. Infections are not post-coital. Patient c/o urgency and frequency. Occasional urge incontinence. Patient denies fever or chills, no dysuria. No gross hematuria. PVR is 34cc today. Patient has to squat and lean forward to empty completely since her prolapse surgery. Last prolapse surgery was in 2007. Patient had a hysterectomy about 10 years ago. Discussed treatment and prevention of urinary tract infections. Discussed the importance of urine cultures and further evaluation with imaging and cystoscopy. Urine culture sent today. Renal US ordered. Patient does not want to try a medication for OAB symptoms, she may try pumpkin seed. Will restart premarin cream 2x per week. F/u in 3 months or sooner if any issues. LAB RESULTS Creatinine Date Value Ref Range Status 05/01/2018 0.66 0.58 - 0.96 mg/dL Final No results found for: PSA Color (no units) Date Value 08/11/2016 Yellow Clarity (no units) Date Value 08/11/2016 Clear Glucose, Urine (mg/dL) Date Value 03/27/2018 neg Bilirubin, Urine (no units) Date Value 03/27/2018 neg Ketones, Urine (no units) Date Value 03/27/2018 neg Specific [place], Ur (no units) Date Value 03/27/2018 1.005 Hemoglobin/Blood,Ur (no units) Date Value 03/27/2018 large pH, Urine (no units) Date Value 03/27/2018 6.5 Protein, Urine (mg/dL) Date Value 03/27/2018 trace Urobilinogen (no units) Date Value 08/11/2016 Normal Nitrites (no units) Date Value 03/27/2018 neg Leukest (no units) Date Value 08/11/2016 Trace REVIEW OF SYSTEMS GENERAL:No weight loss, malaise or fevers. HEENT:Negative for frequent or significant headaches, No changes in hearing or vision, no nose bleeds or other nasal problems. RESPIRATORY: Negative for cough, wheezing or shortness of breath. CARDIOVASCULAR: Negative for chest pain, leg swelling or palpitations. GASTROINTESTINAL: Negative for abdominal discomfort, blood in stools or black stools or change in bowel habits. GENITOURINARY: See HPI. 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 MUSCULOSKELETAL: Negative for joint pain or swelling, back pain or muscle pain. NEUROLOGIC:Negative for focal numbness or weakness, headaches and dizziness or syncope. PSYCHIATRIC: Negative for sleep disturbance, mood disorder and recent psychosocial stressors. MEDICATIONS: predniSONE (DELTASONE) 20 mg tablet Prednisone 40 mg (2-20mg tablets) po QD for 5 days potassium chloride SR (MICRO-K) 10 mEq CR capsule Take 1 capsule by mouth once daily. ergocalciferol, vitamin D2, (VITAMIN D) 50,000 unit capsule Take 1 capsule by mouth once each week. TAKE ON MONDAYS urea (CARMOL) 40 % crea Apply 1 application to affected area as needed. conjugated estrogens (PREMARIN) vaginal cream Use 0.5 g vaginally once each week. LORazepam (ATIVAN) 0.5 mg tab Take 1 tablet by mouth three times daily as needed. conjugated estrogens (PREMARIN) vaginal cream Use 1 g vaginally once daily. loratadine (CLARITIN) 10 mg ORAL tablet Take one(1) tablet daily as needed for allergy symptoms. ALLERGIES Allergen Reactions - Amoxil [Amoxicillin] Hives uncertain - Bactrim [Sulfametho* Hives Hives to torso and legs - Codeine GI Upset - Macrobid [Nitrofura* Other: See Comments Developed weakness, fatigue, SOB, fever, nausea - Penicillins Rash - Zithromax Z-Juliet [Az* GI Upset She can take this HISTORIES PAST MEDICAL HISTORY Diagnosis Date - Internal hemorrhoids without mention of complication - Intestinal infection due to Clostridium difficile 2007 - PMH - PAST MEDICAL HISTORY OF vertigo - PMH - PAST MEDICAL HISTORY OF prolapsed bladder - Unspecified constipation PAST SURGICAL HISTORY Procedure Laterality Date - COLONOSCOP W/ OR W/O [facility] SPEC 09/25/05 - COLONOSCOP W/ OR W/O [facility] SPEC 05/01/2013 Colonoscopy - DANDC, DIAG AND/OR THERAPEUTIC 12/11/1988 Tubal - PAST SURGICAL HISTORY OF age 4 tonsils - PAST SURGICAL HISTORY OF age 2 head trama - PAST SURGICAL HISTORY OF 01/13/2009 donated portion liver, to her neice with liver cancer - PAST SURGICAL HISTORY OF 10/25/2009 bladder repair sling - REPAIR BLADDER WOUND/INJ,COMPLIC 05/2008 [facility] - SALPINGECTOMY 12/25/1988 right tubal ectopic - TOTAL ABDOM HYSTERECTOMY 05/2008 [facility] bilat.salpingo-oophorectomy FAMILY HISTORY Problem Relation Age of Onset - Prostate Cancer Father HTN - Diabetes Mother borderline - other (Skin Cancer) Mother HTN - Hypertension Brother - other (HIV) Brother cancer related - Hypertension Sister also endometriosis - other (depression) Sister also anxiety - other (Anxiety) Sister SOCIAL HISTORY Social History Substance Use Topics - Smoking status: Former Smoker - Smokeless tobacco: Never Used Comment: Only smoked in her early 20's x 2-3 years - Alcohol use Yes Comment: Seldom BP 142/80 Ht 160 cm (5' 3) Wt 50.3 kg (111 lb) LMP 01/30/2006 BMI 19.66 kg/m? PHYSICAL EXAM: General Appearance: Well appearing, alert, in no acute distress, well-hydrated, well nourished. Skin: Skin color, texture, turgor normal, no suspicious rashes or lesions. Back: Normal. Lungs: Normal respritory effort no wheezing. Extremities: No deformities, edema, cyanosis. ASSESSMENT/PLAN: 1. Urinary tract infection without hematuria, site unspecified - ICD9: 599.0, ICD10: N39.0 (primary diagnosis) - BLADDER SCAN 2. Overactive bladder - ICD9: 596.51, ICD10: N32.81 Taylor Cevallos APRN.CNP CNOV Observed: 06/10/2018 Status: COMPLETED Source: [place] 11:00 AM [facility] [place] REPOSITORY Office Visit (UROLAE) NIC CATES ([id number]) 1955 F Date Time Provider Department 06/10/18 11:00 AM TAYLOR CEVALLOS) JOSEMANUEL During your visit today, we recorded the following information about you: Blood pressure Weight Height 142/80 50.3 kg 1.6 m Taylor Cevallos APRN.CNP 06/10/2018 12:10 PM Signed NEW PATIENT HISTORY AND PHYSICAL EXAM HISTORY OF PRESENT ILLNESS Nic Cates is a 62 year old female who presents today as a new patient with recurrent bladder infections. 3 UTI's in the past year. Last 2 urine cultures showed klebsiella. Typically has chills and urgency with infections. No symptoms today. Infections are not post-coital. Patient c/o urgency and frequency. Occasional urge incontinence. Patient denies fever or chills, no dysuria. No gross hematuria. PVR is 34cc today. Patient has to squat and lean forward to empty completely since her prolapse surgery. Last prolapse surgery was in 2007. Patient had a hysterectomy about 10 years ago. Discussed treatment and prevention of urinary tract infections. Discussed the importance of urine cultures and further evaluation with imaging and cystoscopy. Urine culture sent today. Renal US ordered. Patient does not want to try a medication for OAB symptoms, she may try pumpkin seed. Will restart premarin cream 2x per week. F/u in 3 months or sooner if any issues. LAB RESULTS Creatinine Date Value Ref Range Status 05/01/2018 0.66 0.58 - 0.96 mg/dL Final No results found for: PSA Color (no units) Date Value 08/11/2016 Yellow Clarity (no units) Date Value 08/11/2016 Clear Glucose, Urine (mg/dL) Date Value 03/27/2018 neg Bilirubin, Urine (no units) Date Value 03/27/2018 neg Ketones, Urine (no units) Date Value 03/27/2018 neg Specific [place], Ur (no units) Date Value 03/27/2018 1.005 Hemoglobin/Blood,Ur (no units) Date Value 03/27/2018 large pH, Urine (no units) Date Value 03/27/2018 6.5 Protein, Urine (mg/dL) Date Value 03/27/2018 trace Urobilinogen (no units) Date Value 08/11/2016 Normal Nitrites (no units) Date Value 03/27/2018 neg Leukest (no units) Date Value 08/11/2016 Trace REVIEW OF SYSTEMS GENERAL:No weight loss, malaise or fevers. HEENT:Negative for frequent or significant headaches, No changes in hearing or vision, no nose bleeds or other nasal problems. RESPIRATORY: Negative for cough, wheezing or shortness of breath. CARDIOVASCULAR: Negative for chest pain, leg swelling or palpitations. GASTROINTESTINAL: Negative for abdominal discomfort, blood in stools or black stools or change in bowel habits. GENITOURINARY: See HPI. 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 MUSCULOSKELETAL: Negative for joint pain or swelling, back pain or muscle pain. NEUROLOGIC:Negative for focal numbness or weakness, headaches and dizziness or syncope. PSYCHIATRIC: Negative for sleep disturbance, mood disorder and recent psychosocial stressors. MEDICATIONS: predniSONE (DELTASONE) 20 mg tablet Prednisone 40 mg (2-20mg tablets) po QD for 5 days potassium chloride SR (MICRO-K) 10 mEq CR capsule Take 1 capsule by mouth once daily. ergocalciferol, vitamin D2, (VITAMIN D) 50,000 unit capsule Take 1 capsule by mouth once each week. TAKE ON MONDAYS urea (CARMOL) 40 % crea Apply 1 application to affected area as needed. conjugated estrogens (PREMARIN) vaginal cream Use 0.5 g vaginally once each week. LORazepam (ATIVAN) 0.5 mg tab Take 1 tablet by mouth three times daily as needed. conjugated estrogens (PREMARIN) vaginal cream Use 1 g vaginally once daily. loratadine (CLARITIN) 10 mg ORAL tablet Take one(1) tablet daily as needed for allergy symptoms. ALLERGIES Allergen Reactions - Amoxil [Amoxicillin] Hives uncertain - Bactrim [Sulfametho* Hives Hives to torso and legs - Codeine GI Upset - Macrobid [Nitrofura* Other: See Comments Developed weakness, fatigue, SOB, fever, nausea - Penicillins Rash - Zithromax Z-Juliet [Az* GI Upset She can take this HISTORIES PAST MEDICAL HISTORY Diagnosis Date - Internal hemorrhoids without mention of complication - Intestinal infection due to Clostridium difficile 2007 - PMH - PAST MEDICAL HISTORY OF vertigo - PMH - PAST MEDICAL HISTORY OF prolapsed bladder - Unspecified constipation PAST SURGICAL HISTORY Procedure Laterality Date - COLONOSCOP W/ OR W/O [facility] 09/25/05 - COLONOSCOP W/ OR W/O [facility] SPEC 05/01/2013 Colonoscopy - DANDC, DIAG AND/OR THERAPEUTIC 12/11/1988 Tubal - PAST SURGICAL HISTORY OF age 4 tonsils - PAST SURGICAL HISTORY OF age 2 head trama - PAST SURGICAL HISTORY OF 01/13/2009 donated portion liver, to her neice with liver cancer - PAST SURGICAL HISTORY OF 10/25/2009 bladder repair sling - REPAIR BLADDER WOUND/INJ,COMPLIC 05/2008 [facility] - SALPINGECTOMY 12/25/1988 right tubal ectopic - TOTAL ABDOM HYSTERECTOMY 05/2008 [facility] bilat.salpingo-oophorectomy FAMILY HISTORY Problem Relation Age of Onset - Prostate Cancer Father HTN - Diabetes Mother borderline - other (Skin Cancer) Mother HTN - Hypertension Brother - other (HIV) Brother cancer related - Hypertension Sister also endometriosis - other (depression) Sister also anxiety - other (Anxiety) Sister SOCIAL HISTORY Social History Substance Use Topics - Smoking status: Former Smoker - Smokeless tobacco: Never Used Comment: Only smoked in her early 20's x 2-3 years - Alcohol use Yes Comment: Seldom BP 142/80 Ht 160 cm (5' 3) Wt 50.3 kg (111 lb) LMP 01/30/2006 BMI 19.66 kg/m? PHYSICAL EXAM: General Appearance: Well appearing, alert, in no acute distress, well-hydrated, well nourished. Skin: Skin color, texture, turgor normal, no suspicious rashes or lesions. Back: Normal. Lungs: Normal respritory effort no wheezing. Extremities: No deformities, edema, cyanosis. ASSESSMENT/PLAN: 1. Urinary tract infection without hematuria, site unspecified - ICD9: 599.0, ICD10: N39.0 (primary diagnosis) - BLADDER SCAN 2. Overactive bladder - ICD9: 596.51, ICD10: N32.81 Taylor Cevallos APRN.COOK LARDER Referring Provider: SANDRINE JUDD [[id number]] Allergies As of Date: 06/10/2018 Noted Allergy Reaction AMOXIL (AMOXICILLIN) 05/10/2005 4 - Hives Comments: uncertain BACTRIM (SULFAMETHOXAZOLE-TRIMETH*04/08/2018 4 - Hives Comments: Hives to torso and legs CODEINE 06/15/2005 8 - GI Upset MACROBID (NITROFURANTOIN MONOHYD/*04/08/2018 14 - Other: See Comments Comments: Developed weakness, fatigue, SOB, fever, nausea PENICILLINS 06/15/2005 2 - Rash ZITHROMAX Z-JULIET (AZITHROMYCIN) 06/15/2005 8 - GI Upset Comments: She can take this Date Reviewed: 06/10/2018 Reviewed by: Taylor ([facility]) [place] - Fully Assessed Reason for Visit: UTI [116] Cmt: Pt here for recurrent uti - she's had 3 in the last 6months. Primary Visit Diagnosis:Urinary tract infection without hematuria, site unspecified [N39.0] Other Visit Diagnosis:Overactive bladder [N32.81] Order(s):BLADDER SCAN [[id number]] Order #: [id number] UA DIP, URINE (POC) [[id number]] Order #: [id number] #:[id number] conjugated estrogens (PREMARIN) vaginal creamUse 0.5 g vaginally twice a week.Disp: 1 TubeRfl: 5 URINE CULTURE [SQURCUL] Order #: [id number] FUTURE KIDNEY/BLADDER [[id number]] Order #: [id number] FUTURE Prescriptions as of 06/10/2018 Sig: CIPRO ORAL Take by mouth. ERGOCALCIFEROL (VITAMIN D2) 5* Take 1 capsule by mouth once * CONJUGATED ESTROGENS 0.625 MG* Use 0.5 g vaginally twice a w* PREDNISONE 20 MG TABLET Prednisone 40 mg (2-20mg tabl* Patient not taking: Reported on 03/27/2018 POTASSIUM CHLORIDE ER 10 MEQ * Take 1 capsule by mouth once * Patient not taking: Reported on 06/10/2018 UREA 40 % TOPICAL CREAM Apply 1 application to affect* Patient not taking: Reported on 03/27/2018 CONJUGATED ESTROGENS 0.625 MG* Use 0.5 g vaginally once each* LORAZEPAM 0.5 MG TABLET Take 1 tablet by mouth three * Patient not taking: Reported on 03/27/2018 LORATADINE 10 MG TABLET Take one(1) tablet daily as n* Patient not taking: No sig reported Problem List As Of Date 06/10/2018 Noted Resolved Osteopenia [M85.80] INVALID FOR* More... Constipation [K59.00] INVALID FOR* Donor for liver transplant [Z52.6] INVALID FOR* Abdominal adhesions [K66.0] INVALID FOR* Abdominal pain [R10.9] INVALID FOR* OA (osteoarthritis) [M19.90] INVALID FOR* Lumbar stenosis [M48.061] INVALID FOR* More... Low back pain radiating to left leg [M54.5, M79*INVALID FOR* Overactive bladder [N32.81] INVALID FOR* Ganglion cyst of finger of right hand [M67.441] INVALID FOR* UTI (urinary tract infection) [N39.0] INVALID FOR* Prescriptions ordered this encounter Disp Refills Start End CONJUGATED ESTROGENS 0.625 MG/GRAM V* 1 Tu* 5 06/10/2018 Route: VAGINAL Sig: Use 0.5 g vaginally twice a week. Medications Discontinued During This Encounter conjugated estrogens (PREMARIN) vagi* 1 Tu* 12 03/13/2016 06/10/2018 Route: VAGINAL Sig: Use 1 g vaginally once daily. Disc: Clinical Decision Disposition: Return in about 3 months (around 09/10/2018). Follow-up and Disposition History Recorded Encounter Status:Closed by TAYLOR CEVALLOS on 06/10/18 Observed: 06/02/2018 Status: F Source: [place] URINE CULTURE 11:27 PM [facility] REPOSITORY Sp. Request/Comment: - Specimen received in preservative Culture Result - >=100,000 CFU/ml Klebsiella (Enterobacter) aerogenes --> ABNORMAL ALERT ORGANISM: Klebsiella (Enterobacter) aerogenes METHOD: Minimum inhibitory concentration(Vitek) Antibiotic Interp ANNALEE Status Ampicillin RESISTANT F Gentamicin SUSCEPTIBLE <=1 F Trimeth sulfameth SUSCEPTIBLE <=20 F Cefazolin RESISTANT F Ciprofloxacin SUSCEPTIBLE <=0.25 F Nitrofurantoin RESISTANT 128 F Cefepime SUSCEPTIBLE <=1 F Piperacillin/Tazobac SUSCEPTIBLE <=4 F Ampicillin Sulbact RESISTANT F Ceftriaxone SUSCEPTIBLE <=1 F Enterobacter, Citrobacter, and Serratia may develop resistance during prolonged therapy with third generation cephalosporins as a result of derepression of AmpC beta lactamase. Meropenem SUSCEPTIBLE <=0.25 F Ertapenem SUSCEPTIBLE <=0.5 F Performed By: #### URCUL #### [facility] [address] [place], [place] [address] PROGRESS Observed: 06/02/2018 Status: COMPLETED Source: [place] 11:41 AM [facility] REPOSITORY HNO ID: [id number] Author: Haydee Casanova Service: (none) Author Type: Nurse Practitioner Type: Progress Notes Filed: 06/02/2018 12:24 PM Note Text: Subjective The history is provided by the patient. No spiral gear generator was used. HPI Nic Cates is a 62 year old female who presents today for CC of painful urination Onset/Duration: Off and on over the past week. Alleviating/Treatment: Increase hydration, without relief. Aggravating: voiding Risk factors: H/o 2 uti in past 6 months, bladder repair lift and mesh done by Dr. Crowe BP 124/76 Pulse 76 Temp 36.8 ?C (98.3 ?F) (Left Tympanic) Resp 16 Wt 50.6 kg (111 lb 9.6 oz) LMP 01/30/2006 SpO2 99% BMI 19.77 kg/m? ALLERGIES Allergen Reactions - Amoxil [Amoxicillin] Hives uncertain - Bactrim [Sulfametho* Hives Hives to torso and legs - Codeine GI Upset - Macrobid [Nitrofura* Other: See Comments Developed weakness, fatigue, SOB, fever, nausea - Penicillins Rash - Zithromax Z-Juliet [Az* GI Upset She can take this ACTIVE PROBLEM LIST Osteopenia Constipation Donor for Liver Transplant Abdominal Adhesions Abdominal Pain Oa (Osteoarthritis) Lumbar Stenosis Low Back Pain Radiating to Left Leg Overactive Bladder Ganglion Cyst of Finger of Right Hand Family History Problem Relation Age of Onset - Prostate Cancer Father HTN - Diabetes Mother borderline - other (Skin Cancer) Mother HTN - Hypertension Brother - other (HIV) Brother cancer related - Hypertension Sister also endometriosis - other (depression) Sister also anxiety - other (Anxiety) Sister Social History Marital status: Spouse name: Years of education: Number of children: 2 Occupational History 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 Genitourinary: Positive for dysuria, frequency and urgency. Negative for flank pain and hematuria. Skin: Negative for rash. Neurological: Negative for headaches. Objective Physical Exam Constitutional: She is oriented to person, place, and time and well-developed, well-nourished, and in no distress. HENT: Head: Normocephalic and atraumatic. Eyes: Pupils are equal, round, and reactive to light. Conjunctivae and EOM are normal. Neck: Normal range of motion. Neck supple. Pulmonary/Chest: Effort normal. Abdominal: Soft. Normal appearance and bowel sounds are normal. She exhibits no abdominal bruit, no pulsatile midline mass and no mass. There is no hepatosplenomegaly. There is no tenderness. There is no rigidity, no rebound, no guarding, no CVA tenderness, no tenderness at McBurney's point and negative Bennett's sign. Neurological: She is alert and oriented to person, place, and time. Skin: Skin is warm. Psychiatric: Affect normal. Nursing note and vitals reviewed. Component Latest Ref Rng AND Units 06/02/2018 GLUCOSE UA (POCT) Negative mg/dL Negative BILIRUBIN UA (POCT) Negative Negative KETONE UA (POCT) Negative mg/dL Negative SPECIFIC GRAVITY UA (POCT) 1.005 - 1.030 1.015 HEMOGLOBIN/BLOOD UA (POCT) Negative Moderate (A) PH UA (POCT) 4.5 - 8.0 8.0 PROTEIN UA (POCT) Negative mg/dL Negative UROBILINOGEN UA (POCT) Normal E.U./dL 0.2 NITRITE UA (POCT) Negative Negative LEUKOCYTES UA (POCT) Negative Large (A) COLOR UA (POCT) Yellow CLARITY UA (POCT) Clear MDM: UTI 03/2018 + klebsiella, with multiple drug allergies will use cipro, aware of black box warning. ASSESSMENT/PLAN: 1. Acute lower UTI - ICD9: 599.0, ICD10: N39.0 (primary diagnosis) acute - UA positive for alla esterase, hematuria and proteinuria - Send urine for culture - Begin treatment with Ciprofloxacin 500 mg BID for 5 days - Patient education for prevention given 2. Urinary urgency - ICD9: 788.63, ICD10: R39.15 Urinary tract infection (UTI) We will send the urine for culture, which shows us what organism, if any, we are treating. If we need to change the antibiotic coverage, you will receive a call in 48-72 hours. * Seek medical care immediately, call 911, or go to ER if you have high fevers, severe flank or low back pain, blood in your urine. * Follow up with primary care provider if symptoms persist or worsen. - UA DIP, URINE (POC) - URINE CULTURE - CONSULT TO UROLOGY - Call Dr. Crowe on Sunday to set up a consult due to recurrent Uti Diagnosis and treatment plan were discussed and questions were answered to the patient's satisfaction. Pt acknowledged understanding of concepts and follow up plan. Specific signs and symptoms that would indicate the need for higher level of care were discussed in detail warranting prompt ER evaluation. Haydee Casanoav APRN.CNP CNOV Observed: 06/02/2018 Status: COMPLETED Source: [place] 11:15 AM [facility] REPOSITORY Office Visit ([facility]) NIC CATES ([id number]) 1955 F Date Time Provider Department 06/02/18 11:15 AM HAYDEE CASANOVA (IVÁN) [facility] During your visit today, we recorded the following information about you: Temperature Pulse Respiration Blood pressure 98.3 degrees 76/minute 16/minute 124/76 Weight 50.6 kg Haydee Casanova APRN.CNP 06/02/2018 11:41 AM Signed ASSESSMENT/PLAN: 1. Acute lower UTI - ICD9: 599.0, ICD10: N39.0 (primary diagnosis) acute - UA positive for alla esterase, hematuria and proteinuria - Send urine for culture - Begin treatment with Ciprofloxacin 500 mg BID for 5 days - Patient education for prevention given 2. Urinary urgency - ICD9: 788.63, ICD10: R39.15 Urinary tract infection (UTI) We will send the urine for culture, which shows us what organism, if any, we are treating. If we need to change the antibiotic coverage, you will receive a call in 48-72 hours. * Seek medical care immediately, call 911, or go to ER if you have high fevers, severe flank or low back pain, blood in your urine. * Follow up with primary care provider if symptoms persist or worsen. - UA DIP, URINE (POC) - URINE CULTURE - CONSULT TO UROLOGY - Call Dr. Crowe on Sunday to set up a consult due to recurrent Uti Hyadee Casanova APRN.COOK LARDER 06/02/2018 12:24 PM Signed Subjective The history is provided by the patient. No spiral gear generator was used. HPI Nic Cates is a 62 year old female who presents today for CC of painful urination Onset/Duration: Off and on over the past week. Alleviating/Treatment: Increase hydration, without relief. Aggravating: voiding Risk factors: H/o 2 uti in past 6 months, bladder repair lift and mesh done by Dr. Crowe BP 124/76 Pulse 76 Temp 36.8 ?C (98.3 ?F) (Left Tympanic) Resp 16 Wt 50.6 kg (111 lb 9.6 oz) LMP 01/30/2006 SpO2 99% BMI 19.77 kg/m? ALLERGIES Allergen Reactions - Amoxil [Amoxicillin] Hives uncertain - Bactrim [Sulfametho* Hives Hives to torso and legs - Codeine GI Upset - Macrobid [Nitrofura* Other: See Comments Developed weakness, fatigue, SOB, fever, nausea - Penicillins Rash - Zithromax Z-Juliet [Az* GI Upset She can take this ACTIVE PROBLEM LIST Osteopenia Constipation Donor for Liver Transplant Abdominal Adhesions Abdominal Pain Oa (Osteoarthritis) Lumbar Stenosis Low Back Pain Radiating to Left Leg Overactive Bladder Ganglion Cyst of Finger of Right Hand Family History Problem Relation Age of Onset - Prostate Cancer Father HTN - Diabetes Mother borderline - other (Skin Cancer) Mother HTN - Hypertension Brother - other (HIV) Brother cancer related - Hypertension Sister also endometriosis - other (depression) Sister also anxiety - other (Anxiety) Sister Social History Marital status: Spouse name: Years of education: Number of children: 2 Occupational History 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 Genitourinary: Positive for dysuria, frequency and urgency. Negative for flank pain and hematuria. Skin: Negative for rash. Neurological: Negative for headaches. Objective Physical Exam Constitutional: She is oriented to person, place, and time and well-developed, well-nourished, and in no distress. HENT: Head: Normocephalic and atraumatic. Eyes: Pupils are equal, round, and reactive to light. Conjunctivae and EOM are normal. Neck: Normal range of motion. Neck supple. Pulmonary/Chest: Effort normal. Abdominal: Soft. Normal appearance and bowel sounds are normal. She exhibits no abdominal bruit, no pulsatile midline mass and no mass. There is no hepatosplenomegaly. There is no tenderness. There is no rigidity, no rebound, no guarding, no CVA tenderness, no tenderness at McBurney's point and negative Bennett's sign. Neurological: She is alert and oriented to person, place, and time. Skin: Skin is warm. Psychiatric: Affect normal. Nursing note and vitals reviewed. Component Latest Ref Rng AND Units 06/02/2018 GLUCOSE UA (POCT) Negative mg/dL Negative BILIRUBIN UA (POCT) Negative Negative KETONE UA (POCT) Negative mg/dL Negative SPECIFIC GRAVITY UA (POCT) 1.005 - 1.030 1.015 HEMOGLOBIN/BLOOD UA (POCT) Negative Moderate (A) PH UA (POCT) 4.5 - 8.0 8.0 PROTEIN UA (POCT) Negative mg/dL Negative UROBILINOGEN UA (POCT) Normal E.U./dL 0.2 NITRITE UA (POCT) Negative Negative LEUKOCYTES UA (POCT) Negative Large (A) COLOR UA (POCT) Yellow CLARITY UA (POCT) Clear MDM: UTI 03/2018 + klebsiella, with multiple drug allergies will use cipro, aware of black box warning. ASSESSMENT/PLAN: 1. Acute lower UTI - ICD9: 599.0, ICD10: N39.0 (primary diagnosis) acute - UA positive for alla esterase, hematuria and proteinuria - Send urine for culture - Begin treatment with Ciprofloxacin 500 mg BID for 5 days - Patient education for prevention given 2. Urinary urgency - ICD9: 788.63, ICD10: R39.15 Urinary tract infection (UTI) We will send the urine for culture, which shows us what organism, if any, we are treating. If we need to change the antibiotic coverage, you will receive a call in 48-72 hours. * Seek medical care immediately, call 911, or go to ER if you have high fevers, severe flank or low back pain, blood in your urine. * Follow up with primary care provider if symptoms persist or worsen. - UA DIP, URINE (POC) - URINE CULTURE - CONSULT TO UROLOGY - Call Dr. Crowe on Sunday to set up a consult due to recurrent Uti Diagnosis and treatment plan were discussed and questions were answered to the patient's satisfaction. Pt acknowledged understanding of concepts and follow up plan. Specific signs and symptoms that would indicate the need for higher level of care were discussed in detail warranting prompt ER evaluation. Haydee Casanova APRN.COOK LARDER Referring Provider: SELF [[id number]] Allergies As of Date: 06/02/2018 Noted Allergy Reaction AMOXIL (AMOXICILLIN) 05/10/2005 4 - Hives Comments: uncertain BACTRIM (SULFAMETHOXAZOLE-TRIMETH*04/08/2018 4 - Hives Comments: Hives to torso and legs CODEINE 06/15/2005 8 - GI Upset MACROBID (NITROFURANTOIN MONOHYD/*04/08/2018 14 - Other: See Comments Comments: Developed weakness, fatigue, SOB, fever, nausea PENICILLINS 06/15/2005 2 - Rash ZITHROMAX Z-JULIET (AZITHROMYCIN) 06/15/2005 8 - GI Upset Comments: She can take this Date Reviewed: 06/02/2018 Reviewed by: Haydee ([facility]) [place] - Fully Assessed Reason for Visit: bladder infection symptoms [Other] Cmt: with dysuria x 3 days Reason For Visit History Recorded Primary Visit Diagnosis:Acute lower UTI [N39.0] Other Visit Diagnosis:Urinary urgency [R39.15] Order(s):UA DIP, URINE (POC) [[id number]] Order #: [id number] #:[id number] URINE CULTURE [SQURCUL] Order #: [id number] CONSULT TO UROLOGY [9041] Order #: [id number]: 1 ciprofloxacin HCl (CIPRO) 500 mg tabletTake 1 tablet by mouth twice daily for 5 days.Disp: 20 tabletRfl: 0 Prescriptions as of 06/02/2018 Sig: POTASSIUM CHLORIDE ER 10 MEQ * Take 1 capsule by mouth once * ERGOCALCIFEROL (VITAMIN D2) 5* Take 1 capsule by mouth once * CONJUGATED ESTROGENS 0.625 MG* Use 0.5 g vaginally once each* LORATADINE 10 MG TABLET Take one(1) tablet daily as n* CIPROFLOXACIN 500 MG TABLET Take 1 tablet by mouth twice * PREDNISONE 20 MG TABLET Prednisone 40 mg (2-20mg tabl* Patient not taking: Reported on 03/27/2018 UREA 40 % TOPICAL CREAM Apply 1 application to affect* Patient not taking: Reported on 03/27/2018 LORAZEPAM 0.5 MG TABLET Take 1 tablet by mouth three * Patient not taking: Reported on 03/27/2018 CONJUGATED ESTROGENS 0.625 MG* Use 1 g vaginally once daily. Problem List As Of Date 06/02/2018 Noted Resolved Osteopenia [M85.80] INVALID FOR* More... Constipation [K59.00] INVALID FOR* Donor for liver transplant [Z52.6] INVALID FOR* Abdominal adhesions [K66.0] INVALID FOR* Abdominal pain [R10.9] INVALID FOR* OA (osteoarthritis) [M19.90] INVALID FOR* Lumbar stenosis [M48.061] INVALID FOR* More... Low back pain radiating to left leg [M54.5, M79*INVALID FOR* Overactive bladder [N32.81] INVALID FOR* Ganglion cyst of finger of right hand [M67.441] INVALID FOR* Other instructions from your clinician: ASSESSMENT/PLAN: 1. Acute lower UTI - ICD9: 599.0, ICD10: N39.0 (primary diagnosis) acute - UA positive for alla esterase, hematuria and proteinuria - Send urine for culture - Begin treatment with Ciprofloxacin 500 mg BID for 5 days - Patient education for prevention given 2. Urinary urgency - ICD9: 788.63, ICD10: R39.15 Urinary tract infection (UTI) We will send the urine for culture, which shows us what organism, if any, we are treating. If we need to change the antibiotic coverage, you will receive a call in 48-72 hours. * Seek medical care immediately, call 911, or go to ER if you have high fevers, severe flank or low back pain, blood in your urine. * Follow up with primary care provider if symptoms persist or worsen. - UA DIP, URINE (POC) - URINE CULTURE - CONSULT TO UROLOGY - Call Dr. Crowe on Sunday to set up a consult due to recurrent Uti Prescriptions ordered this encounter Disp Refills Start End CIPROFLOXACIN 500 MG TABLET 20 t* 0 06/02/2018 06/07/2018 Route: ORAL Sig: Take 1 tablet by mouth twice daily for 5 days. Encounter Status:Closed by HAYDEE CASANOVA CNP on 06/02/18 COMP METABOLIC PANEL Collected: 05/01/2018 Status: F Source: [place] 1:32 PM [facility] REPOSITORY TYPE CODE TESTS RESULT OUT OF REFERENCE UNITS RANGE LAB TP 6.3-8.0 g/dL Protein, Total 6.3 LAB ALB 3.9-4.9 g/dL Albumin 4.3 LAB CA 8.5-10.2 mg/dL Calcium, Total 9.6 LAB TBIL 0.2-1.3 mg/dL Bilirubin, Total 0.4 LAB ALKP 32-117 U/L Alkaline Phosphatase 59 LAB AST 13-35 U/L AST 30 LAB GLU 74-99 mg/dL Glucose 92 Result Comment: The [place] Diabetes Association (ADA) provides guidance for cutoff values for fasting glucose and random glucose. The ADA defines fasting as no caloric intake for at least 8 hours. Fas ting plasma glucose results between 100 to 125 mg/dL indicate increased risk for diabetes (prediabetes). Fasting plasma glucose results greater than or equal to 126 mg/dL meet the criteria for diagnosis of diabetes. In the absence of unequivocal hyperglycemia, results should be confirmed by repeat testing. In a patient with classic symptoms of hyperglycemia or hyperglycemic crisis, random plasma glucose results greater than or equal to 200 mg/dL meet the criteria for diagnosis of diabetes. Reference: Standards of Medical Care in Diabetes 2016, [place] Diabetes Association. Diabetes Care. 2016.39(Suppl 1). LAB BUN 7-21 mg/dL BUN 15 LAB CRET 0.58-0.96 mg/dL Creatinine 0.66 LAB NA 136-144 mmol/L Sodium 141 LAB K 3.7-5.1 mmol/L Potassium 3.7 LAB CL 97-105 mmol/L Chloride 100 LAB CO2 22-30 mmol/L CO2 23 LAB AGAP 9-18 mmol/L Anion Gap 18 LAB ALT 7-38 U/L ALT 18 LAB GFRAA eGFR- Amer. >60 LAB GFRNAA . eGFR-All Other Races >60 Result Comment: eGFR (Estimated GFR) Units of measure: mL/min/1.73 meters squared eGFR is derived from the reexpressed MDRD Study equation using the following parameters: serum creatinine, age, gender and race. The creatinine assay has been calibrated to be traceable to IDMS. An eGFR <60 mL/min/1.73m2 for >3 months is consistent with chronic kidney disease. Refer to KDOQI guidelines for clinical interpretation. In patients with unstable renal function, e.g. those with acute kidney injury, the eGFR may not accurately reflect actual GFR. Performed By: #### CMP, AHCV1B #### [facility] [address] [place] [id number] HEP C AB IA W/CONF Collected: 05/01/2018 Status: F Source: [place] 1:32 PM [facility] REPOSITORY TYPE CODE TESTS RESULT OUT OF REFERENCE UNITS RANGE LAB AHCV Negative Hepatitis C Ab Negative IA Performed By: #### CMP, AHCV1B #### [facility] [address] [place], [place] [address] PROGRESS Observed: 04/24/2018 Status: COMPLETED Source: [place] 6:25 PM [facility] REPOSITORY HNO ID: [id number] Author: Sandrine Judd Service: (none) Author Type: Physician Type: Progress Notes Filed: 04/24/2018 8:19 PM Note Text: Reason for Visit Patient presents with: Established Patient: 6 month follow up Nic Cates is a 62 year old female who presents here today for Above Complaints. Health Maintenance HEPATITIS C SCREENING INFLUENZA(1) HPI She has questions on potassium, c/o bowels being different so she stopped taking the medication. 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 She feels good at this weight. But we discussed that she should try to gain some weight. Last uti she developed hives, is on macrobid and bactrim. Wants liver blood work and wants medication for cold sores. 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 Got an injury to the eyelid from a hook that she did not see on the bird feeder. ? 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 Needs to see hand surgeon again. ? Also seen the foot doctor since she last saw me who gave her a shot but It did not help her much and was painful notes that she is not going to have a foot injection again. ? No problem-specific Assessment AND Plan notes found for this encounter. PAST MEDICAL HISTORY Diagnosis Date - Internal hemorrhoids without mention of complication - Intestinal infection due to Clostridium difficile 2007 - PMH - PAST MEDICAL HISTORY OF vertigo - PMH - PAST MEDICAL HISTORY OF prolapsed bladder - Unspecified constipation PAST SURGICAL HISTORY Procedure Laterality Date - COLONOSCOP W/ OR W/O [facility] SPEC 09/25/05 - COLONOSCOP W/ OR W/O [facility] SPEC 05/01/2013 Colonoscopy - DANDC, DIAG AND/OR THERAPEUTIC 12/11/1988 Tubal - PAST SURGICAL HISTORY OF age 4 tonsils - PAST SURGICAL HISTORY OF age 2 head trama - PAST SURGICAL HISTORY OF 01/13/2009 donated portion liver, to her neice with liver cancer - PAST SURGICAL HISTORY OF 10/25/2009 bladder repair sling - REPAIR BLADDER WOUND/INJ,COMPLIC 05/2008 [facility] - SALPINGECTOMY 12/25/1988 right tubal ectopic - TOTAL ABDOM HYSTERECTOMY 05/2008 [facility] bilat.salpingo-oophorectomy FAMILY HISTORY Problem Relation Age of Onset - Prostate Cancer Father HTN - Diabetes Mother borderline - other (Skin Cancer) Mother HTN - Hypertension Brother - other (HIV) Brother cancer related - Hypertension Sister also endometriosis - other (depression) Sister also anxiety - other (Anxiety) Sister Social History Substance Use Topics - Smoking status: Former Smoker - Smokeless tobacco: Never Used Comment: Only smoked in her early 20's x 2-3 years - Alcohol use Yes Comment: Seldom Past medical history, appointments, medications, allergies reviewed. Pertinent Lab/Diagnostic Studies are reviewed and discussed today Current Outpatient Prescriptions: - predniSONE (DELTASONE) 20 mg tablet - potassium chloride SR (MICRO-K) 10 mEq CR capsule - ergocalciferol, vitamin D2, (VITAMIN D) 50,000 unit capsule - urea (CARMOL) 40 % crea - conjugated estrogens (PREMARIN) vaginal cream - LORazepam (ATIVAN) 0.5 mg tab - conjugated estrogens (PREMARIN) vaginal cream - loratadine (CLARITIN) 10 mg ORAL tablet Review of Systems CONSTITUTIONAL: No fevers, chills night sweats, unintended weight loss CARDIOVASCULAR: No chest pain, dyspnea, palpitations, orthopnea, PND, ankle edema. PULM: No dyspnea, unexplained cough. GI: No dysphagia/odynophagia, problematic reflux, constipation, diarrhea, changes in stool habits, hematochezia, melena. : No new urinary complaints, including dysuria, gross hematuria or pyuria. NEURO: No new balance problems, peripheral weakness/paresthesias or numbness of concern. Physical Exam BP 128/70 (BP Site: Left Arm, BP Position: Sitting, BP Cuff Size: Regular Adult) Pulse 60 Resp 12 Ht 160 cm (5' 3) Wt 50.3 kg (111 lb) LMP 01/30/2006 SpO2 100% BMI 19.66 kg/m? General appearance: Well appearing, alert, in no acute distress, well nourished. Skin: Skin color, texture, turgor normal, no suspicious rashes or lesions Head: Normocephalic, no masses, lesions, tenderness or abnormalities Eyes: Anicteric sclera. Pupils are equally round and reactive to light. Extraocular movements are intact. Lungs: Lungs clear to auscultation. No wheezing, rhonchi, rales Heart: RRR without murmur, gallop, or rubs. Extremities: No deformities, edema, skin discoloration, clubbing or cyanosis. Good capillary refill. ASSESSMENT/PLAN: 1. H/O cold sores - ICD9: V12.09, ICD10: Z86.19 (primary diagnosis) - ACYCLOVIR 400 MG TABLET 2. Hypokalemia - ICD9: 276.8, ICD10: E87.6 - COMP METABOLIC PANEL 3. Donor for liver transplant - ICD9: V59.6, ICD10: Z52.6 4. Need for hepatitis C screening test - ICD9: V73.89, ICD10: Z11.59 - HEP C AB IA W/CONF SCRN SANDRINE JUDD MD CNOV Observed: 04/24/2018 Status: COMPLETED Source: [place] 6:00 PM [facility] REPOSITORY Office Visit (INTMWS) NIC CATES ([id number]) 1955 F Date Time Provider Department 04/24/18 6:00 PM SANDRINE JUDD INTDylanWS During your visit today, we recorded the following information about you: Pulse Respiration Blood pressure Weight 60/minute 12/minute 128/70 50.3 kg Height 1.6 m SANDRINE JUDD MD 04/24/2018 8:19 PM Signed Reason for Visit Patient presents with: Established Patient: 6 month follow up Nic Cates is a 62 year old female who presents here today for Above Complaints. Health Maintenance HEPATITIS C SCREENING INFLUENZA(1) HPI She has questions on potassium, c/o bowels being different so she stopped taking the medication. 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 She feels good at this weight. But we discussed that she should try to gain some weight. Last uti she developed hives, is on macrobid and bactrim. Wants liver blood work and wants medication for cold sores. 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 Got an injury to the eyelid from a hook that she did not see on the bird feeder. ? 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 Needs to see hand surgeon again. ? Also seen the foot doctor since she last saw me who gave her a shot but It did not help her much and was painful notes that she is not going to have a foot injection again. ? No problem-specific Assessment AND Plan notes found for this encounter. PAST MEDICAL HISTORY Diagnosis Date - Internal hemorrhoids without mention of complication - Intestinal infection due to Clostridium difficile 2007 - PMH - PAST MEDICAL HISTORY OF vertigo - PMH - PAST MEDICAL HISTORY OF prolapsed bladder - Unspecified constipation PAST SURGICAL HISTORY Procedure Laterality Date - COLONOSCOP W/ OR W/O [facility] SPEC 09/25/05 - COLONOSCOP W/ OR W/O [facility] SPEC 05/01/2013 Colonoscopy - DANDC, DIAG AND/OR THERAPEUTIC 12/11/1988 Tubal - PAST SURGICAL HISTORY OF age 4 tonsils - PAST SURGICAL HISTORY OF age 2 head trama - PAST SURGICAL HISTORY OF 01/13/2009 donated portion liver, to her neice with liver cancer - PAST SURGICAL HISTORY OF 10/25/2009 bladder repair sling - REPAIR BLADDER WOUND/INJ,COMPLIC 05/2008 [facility] - SALPINGECTOMY 12/25/1988 right tubal ectopic - TOTAL ABDOM HYSTERECTOMY 05/2008 [facility] bilat.salpingo-oophorectomy FAMILY HISTORY Problem Relation Age of Onset - Prostate Cancer Father HTN - Diabetes Mother borderline - other (Skin Cancer) Mother HTN - Hypertension Brother - other (HIV) Brother cancer related - Hypertension Sister also endometriosis - other (depression) Sister also anxiety - other (Anxiety) Sister Social History Substance Use Topics - Smoking status: Former Smoker - Smokeless tobacco: Never Used Comment: Only smoked in her early 20's x 2-3 years - Alcohol use Yes Comment: Seldom Past medical history, appointments, medications, allergies reviewed. Pertinent Lab/Diagnostic Studies are reviewed and discussed today Current Outpatient Prescriptions: - predniSONE (DELTASONE) 20 mg tablet - potassium chloride SR (MICRO-K) 10 mEq CR capsule - ergocalciferol, vitamin D2, (VITAMIN D) 50,000 unit capsule - urea (CARMOL) 40 % crea - conjugated estrogens (PREMARIN) vaginal cream - LORazepam (ATIVAN) 0.5 mg tab - conjugated estrogens (PREMARIN) vaginal cream - loratadine (CLARITIN) 10 mg ORAL tablet Review of Systems CONSTITUTIONAL: No fevers, chills night sweats, unintended weight loss CARDIOVASCULAR: No chest pain, dyspnea, palpitations, orthopnea, PND, ankle edema. PULM: No dyspnea, unexplained cough. GI: No dysphagia/odynophagia, problematic reflux, constipation, diarrhea, changes in stool habits, hematochezia, melena. : No new urinary complaints, including dysuria, gross hematuria or pyuria. NEURO: No new balance problems, peripheral weakness/paresthesias or numbness of concern. Physical Exam BP 128/70 (BP Site: Left Arm, BP Position: Sitting, BP Cuff Size: Regular Adult) Pulse 60 Resp 12 Ht 160 cm (5' 3) Wt 50.3 kg (111 lb) LMP 01/30/2006 SpO2 100% BMI 19.66 kg/m? General appearance: Well appearing, alert, in no acute distress, well nourished. Skin: Skin color, texture, turgor normal, no suspicious rashes or lesions Head: Normocephalic, no masses, lesions, tenderness or abnormalities Eyes: Anicteric sclera. Pupils are equally round and reactive to light. Extraocular movements are intact. Lungs: Lungs clear to auscultation. No wheezing, rhonchi, rales Heart: RRR without murmur, gallop, or rubs. Extremities: No deformities, edema, skin discoloration, clubbing or cyanosis. Good capillary refill. ASSESSMENT/PLAN: 1. H/O cold sores - ICD9: V12.09, ICD10: Z86.19 (primary diagnosis) - ACYCLOVIR 400 MG TABLET 2. Hypokalemia - ICD9: 276.8, ICD10: E87.6 - COMP METABOLIC PANEL 3. Donor for liver transplant - ICD9: V59.6, ICD10: Z52.6 4. Need for hepatitis C screening test - ICD9: V73.89, ICD10: Z11.59 - HEP C AB IA W/CONF SCRN SANDRINE JUDD MD Referring Provider: SANDRINE JUDD [[id number]] Allergies As of Date: 04/24/2018 Noted Allergy Reaction AMOXIL (AMOXICILLIN) 05/10/2005 4 - Hives Comments: uncertain BACTRIM (SULFAMETHOXAZOLE-TRIMETH*04/08/2018 4 - Hives Comments: Hives to torso and legs CODEINE 06/15/2005 8 - GI Upset MACROBID (NITROFURANTOIN MONOHYD/*04/08/2018 14 - Other: See Comments Comments: Developed weakness, fatigue, SOB, fever, nausea PENICILLINS 06/15/2005 2 - Rash ZITHROMAX Z-JULIET (AZITHROMYCIN) 06/15/2005 8 - GI Upset Comments: She can take this Date Reviewed: 04/24/2018 Reviewed by: Valeria Leonard LPN - Fully Assessed Reason for Visit: Established Patient [175] Cmt: 6 month follow up Primary Visit Diagnosis:H/O cold sores [Z86.19] Other Visit Diagnoses:Hypokalemia [E87.6] Donor for liver transplant [Z52.6] Need for hepatitis C screening test [Z11.59] Order(s):acyclovir (ZOVIRAX) 400 mg tabletTake 1 tablet by mouth five times daily for 5 days.Disp: 25 tabletRfl: 0 COMP METABOLIC PANEL [SQCMP] Order #: [id number] FUTURE HEP C AB IA W/CONF SCRN [[id number]] Order #: [id number] FUTURE Prescriptions as of 04/24/2018 Sig: ACYCLOVIR 400 MG TABLET Take 1 tablet by mouth five t* PREDNISONE 20 MG TABLET Prednisone 40 mg (2-20mg tabl* Patient not taking: Reported on 03/27/2018 POTASSIUM CHLORIDE ER 10 MEQ * Take 1 capsule by mouth once * ERGOCALCIFEROL (VITAMIN D2) 5* Take 1 capsule by mouth once * UREA 40 % TOPICAL CREAM Apply 1 application to affect* Patient not taking: Reported on 03/27/2018 CONJUGATED ESTROGENS 0.625 MG* Use 0.5 g vaginally once each* LORAZEPAM 0.5 MG TABLET Take 1 tablet by mouth three * Patient not taking: Reported on 03/27/2018 CONJUGATED ESTROGENS 0.625 MG* Use 1 g vaginally once daily. LORATADINE 10 MG TABLET Take one(1) tablet daily as n* Problem List As Of Date 04/24/2018 Noted Resolved Osteopenia [M85.80] INVALID FOR* More... Constipation [K59.00] INVALID FOR* Donor for liver transplant [Z52.6] INVALID FOR* Abdominal adhesions [K66.0] INVALID FOR* Abdominal pain [R10.9] INVALID FOR* OA (osteoarthritis) [M19.90] INVALID FOR* Lumbar stenosis [M48.061] INVALID FOR* More... Low back pain radiating to left leg [M54.5, M79*INVALID FOR* Overactive bladder [N32.81] INVALID FOR* Ganglion cyst of finger of right hand [M67.441] INVALID FOR* Prescriptions ordered this encounter Disp Refills Start End ACYCLOVIR 400 MG TABLET 25 t* 0 04/24/2018 04/29/2018 Route: ORAL Sig: Take 1 tablet by mouth five times daily for 5 days. Encounter Status:Closed by SANDRINE JUDD MD on 04/24/18 Observed: 03/27/2018 Status: F Source: [place] URINE CULTURE 10:25 AM [facility] REPOSITORY Sp. Request/Comment: - Specimen received in preservative Culture Result - >=100,000 CFU/ml Klebsiella (Enterobacter) aerogenes --> ABNORMAL ALERT ORGANISM: Klebsiella (Enterobacter) aerogenes METHOD: Minimum inhibitory concentration(Vitek) Antibiotic Interp ANNALEE Status Ampicillin RESISTANT F Gentamicin SUSCEPTIBLE <=1 F Trimeth sulfameth SUSCEPTIBLE <=20 F Cefazolin RESISTANT F Ciprofloxacin SUSCEPTIBLE <=0.25 F Nitrofurantoin RESISTANT 128 F Cefepime SUSCEPTIBLE <=1 F Piperacillin/Tazobac SUSCEPTIBLE <=4 F Ampicillin Sulbact RESISTANT F Ceftriaxone SUSCEPTIBLE <=1 F Enterobacter, Citrobacter, and Serratia may develop resistance during prolonged therapy with third generation cephalosporins as a result of derepression of AmpC beta lactamase. Meropenem SUSCEPTIBLE <=0.25 F Ertapenem SUSCEPTIBLE <=0.5 F Performed By: #### URCUL #### [facility] [address] [place], [place] [address] PROGRESS Observed: 03/27/2018 Status: COMPLETED Source: [place] 9:51 AM [facility] REPOSITORY HNO ID: [id number] Author: Judson Zhang Service: (none) Author Type: Nurse Practitioner Type: Progress Notes Filed: 03/27/2018 10:20 AM Note Text: Subjective HPI HPI Nic Cates is a 62 year old female who presents today for CC of urinary burning, frequency. This started 3 days. Has tried azo with mild relief. Symptoms are worsened by nothing. Risk factors hx of uti. .Patient presents with: Urinary Problem: burning and frequency of urination x 3 days PAST MEDICAL HISTORY Diagnosis Date - Internal hemorrhoids without mention of complication - Intestinal infection due to Clostridium difficile 2007 - PMH - PAST MEDICAL HISTORY OF vertigo - PMH - PAST MEDICAL HISTORY OF prolapsed bladder - Unspecified constipation PAST SURGICAL HISTORY Procedure Laterality Date - COLONOSCOP W/ OR W/O [facility] SPEC 09/25/05 - COLONOSCOP W/ OR W/O [facility] SPEC 05/01/2013 Colonoscopy - DANDC, DIAG AND/OR THERAPEUTIC 12/11/1988 Tubal - PAST SURGICAL HISTORY OF age 4 tonsils - PAST SURGICAL HISTORY OF age 2 head trama - PAST SURGICAL HISTORY OF 01/13/2009 donated portion liver, to her neice with liver cancer - PAST SURGICAL HISTORY OF 10/25/2009 bladder repair sling - REPAIR BLADDER WOUND/INJ,COMPLIC 05/2008 [facility] - SALPINGECTOMY 12/25/1988 right tubal ectopic - TOTAL ABDOM HYSTERECTOMY 05/2008 [facility] bilat.salpingo-oophorectomy ALLERGIES Amoxil [Amoxicillin]; Codeine; Penicillins; Zithromax Z-Juliet [Azithromycin] MEDICATIONS potassium chloride SR (MICRO-K) 10 mEq CR capsule Take 1 capsule by mouth once daily. ergocalciferol, vitamin D2, (VITAMIN D) 50,000 unit capsule Take 1 capsule by mouth once each week. TAKE ON MONDAYS conjugated estrogens (PREMARIN) vaginal cream Use 0.5 g vaginally once each week. conjugated estrogens (PREMARIN) vaginal cream Use 1 g vaginally once daily. loratadine (CLARITIN) 10 mg ORAL tablet Take one(1) tablet daily as needed for allergy symptoms. predniSONE (DELTASONE) 20 mg tablet Prednisone 40 mg (2-20mg tablets) po QD for 5 days urea (CARMOL) 40 % crea Apply 1 application to affected area as needed. LORazepam (ATIVAN) 0.5 mg tab Take 1 tablet by mouth three times daily as needed. FAMILY HISTORY Problem Relation Age of Onset - Prostate Cancer Father HTN - Diabetes Mother borderline - Skin Cancer [OTHER] Mother HTN - Hypertension Brother - HIV [OTHER] Brother cancer related - Hypertension Sister also endometriosis - depression [OTHER] Sister also anxiety - Anxiety [OTHER] Sister Social History Substance Use Topics - Smoking status: Former Smoker - Smokeless tobacco: Never Used Comment: Only smoked in her early 20's x 2-3 years - Alcohol use Yes Comment: Seldom Review of Systems Constitutional: Negative for chills, fever and weight loss. Respiratory: Negative for cough, shortness of breath and wheezing. Cardiovascular: Negative for chest pain and palpitations. Gastrointestinal: Negative for abdominal pain, blood in stool, constipation, diarrhea, heartburn, melena, nausea and vomiting. Genitourinary: Positive for dysuria, frequency and urgency. Negative for flank pain and hematuria. Musculoskeletal: Positive for myalgias. Objective Blood pressure 110/64, pulse 74, temperature 36.7 ?C (98 ?F), temperature source Tympanic, resp. rate 16, weight 50.3 kg (111 lb), last menstrual period 01/30/2006. Component Latest Ref Rng AND Units 10/23/2017 Glucose 74 - 99 mg/dL 79 BUN 7 - 21 mg/dL 13 Creatinine 0.58 - 0.96 mg/dL 0.63 Sodium 136 - 144 mmol/L 138 Potassium 3.7 - 5.1 mmol/L 3.6 (L) Chloride 97 - 105 mmol/L 99 CO2 22 - 30 mmol/L 26 Anion Gap 9 - 18 mmol/L 13 Calcium 8.5 - 10.2 mg/dL 9.0 eGFR- >60 eGFR-All Other Races . >60 Physical Exam Constitutional: She is well-developed, well-nourished, and in no distress. Non-toxic appearance. She does not have a sickly appearance. No distress. Cardiovascular: Normal rate, regular rhythm and normal heart sounds. Pulmonary/Chest: Effort normal and breath sounds normal. Abdominal: Soft. Normal appearance and bowel sounds are normal. There is no hepatosplenomegaly. There is no tenderness. There is no CVA tenderness. Skin: Skin is warm and dry. ASSESSMENT/PLAN: 1. Burning with urination - ICD9: 788.1, ICD10: R30.0 acute - UA positive for alla esterase, hematuria and proteinuria - Send urine for culture - Begin treatment with Macrobid 100 mg BID for 7 days - Patient education for prevention given - UA DIP B/O - URINE CULTURE - NITROFURANTOIN MONOHYDRATE AND MACROCRYSTAL 100 MG ORAL CAP Prescription instructions reviewed with patient as applicable. Patient advised if symptoms do not improve or if symptoms worsen sooner, to contact the office for further evaluation by their primary care physician. Potential red flag symptoms discussed with the patient. Reviewed appropriate action plan to take if red flag symptoms occur. Patient agreeable to treatment plan. Judson Zhang APRN.CNP CNOV Observed: 03/27/2018 Status: COMPLETED Source: [place] 9:45 AM [facility] REPOSITORY Office Visit (WSTR) NIC CATES ([id number]) 1955 F Date Time Provider Department 03/27/18 9:45 AM JUDSON ZHANG (IVÁN) WSTR During your visit today, we recorded the following information about you: Temperature Pulse Respiration Blood pressure 98 degrees 74/minute 16/minute 110/64 Weight 50.3 kg Judson Zhang APRN.CNP 03/27/2018 10:20 AM Signed Subjective HPI HPI Nic Cates is a 62 year old female who presents today for CC of urinary burning, frequency. This started 3 days. Has tried azo with mild relief. Symptoms are worsened by nothing. Risk factors hx of uti. .Patient presents with: Urinary Problem: burning and frequency of urination x 3 days PAST MEDICAL HISTORY Diagnosis Date - Internal hemorrhoids without mention of complication - Intestinal infection due to Clostridium difficile 2007 - PMH - PAST MEDICAL HISTORY OF vertigo - PMH - PAST MEDICAL HISTORY OF prolapsed bladder - Unspecified constipation PAST SURGICAL HISTORY Procedure Laterality Date - COLONOSCOP W/ OR W/O [facility] SPEC 09/25/05 - COLONOSCOP W/ OR W/O [facility] SPEC 05/01/2013 Colonoscopy - DANRISA, DIAG AND/OR THERAPEUTIC 12/11/1988 Tubal - PAST SURGICAL HISTORY OF age 4 tonsils - PAST SURGICAL HISTORY OF age 2 head trama - PAST SURGICAL HISTORY OF 01/13/2009 donated portion liver, to her neice with liver cancer - PAST SURGICAL HISTORY OF 10/25/2009 bladder repair sling - REPAIR BLADDER WOUND/INJ,COMPLIC 05/2008 [facility] - SALPINGECTOMY 12/25/1988 right tubal ectopic - TOTAL ABDOM HYSTERECTOMY 05/2008 [facility] bilat.salpingo-oophorectomy ALLERGIES Amoxil [Amoxicillin]; Codeine; Penicillins; Zithromax Z-Juliet [Azithromycin] MEDICATIONS potassium chloride SR (MICRO-K) 10 mEq CR capsule Take 1 capsule by mouth once daily. ergocalciferol, vitamin D2, (VITAMIN D) 50,000 unit capsule Take 1 capsule by mouth once each week. TAKE ON MONDAYS conjugated estrogens (PREMARIN) vaginal cream Use 0.5 g vaginally once each week. conjugated estrogens (PREMARIN) vaginal cream Use 1 g vaginally once daily. loratadine (CLARITIN) 10 mg ORAL tablet Take one(1) tablet daily as needed for allergy symptoms. predniSONE (DELTASONE) 20 mg tablet Prednisone 40 mg (2-20mg tablets) po QD for 5 days urea (CARMOL) 40 % crea Apply 1 application to affected area as needed. LORazepam (ATIVAN) 0.5 mg tab Take 1 tablet by mouth three times daily as needed. FAMILY HISTORY Problem Relation Age of Onset - Prostate Cancer Father HTN - Diabetes Mother borderline - Skin Cancer [OTHER] Mother HTN - Hypertension Brother - HIV [OTHER] Brother cancer related - Hypertension Sister also endometriosis - depression [OTHER] Sister also anxiety - Anxiety [OTHER] Sister Social History Substance Use Topics - Smoking status: Former Smoker - Smokeless tobacco: Never Used Comment: Only smoked in her early 20's x 2-3 years - Alcohol use Yes Comment: Seldom Review of Systems Constitutional: Negative for chills, fever and weight loss. Respiratory: Negative for cough, shortness of breath and wheezing. Cardiovascular: Negative for chest pain and palpitations. Gastrointestinal: Negative for abdominal pain, blood in stool, constipation, diarrhea, heartburn, melena, nausea and vomiting. Genitourinary: Positive for dysuria, frequency and urgency. Negative for flank pain and hematuria. Musculoskeletal: Positive for myalgias. Objective Blood pressure 110/64, pulse 74, temperature 36.7 ?C (98 ?F), temperature source Tympanic, resp. rate 16, weight 50.3 kg (111 lb), last menstrual period 01/30/2006. Component Latest Ref Rng AND Units 10/23/2017 Glucose 74 - 99 mg/dL 79 BUN 7 - 21 mg/dL 13 Creatinine 0.58 - 0.96 mg/dL 0.63 Sodium 136 - 144 mmol/L 138 Potassium 3.7 - 5.1 mmol/L 3.6 (L) Chloride 97 - 105 mmol/L 99 CO2 22 - 30 mmol/L 26 Anion Gap 9 - 18 mmol/L 13 Calcium 8.5 - 10.2 mg/dL 9.0 eGFR- >60 eGFR-All Other Races . >60 Physical Exam Constitutional: She is well-developed, well-nourished, and in no distress. Non-toxic appearance. She does not have a sickly appearance. No distress. Cardiovascular: Normal rate, regular rhythm and normal heart sounds. Pulmonary/Chest: Effort normal and breath sounds normal. Abdominal: Soft. Normal appearance and bowel sounds are normal. There is no hepatosplenomegaly. There is no tenderness. There is no CVA tenderness. Skin: Skin is warm and dry. ASSESSMENT/PLAN: 1. Burning with urination - ICD9: 788.1, ICD10: R30.0 acute - UA positive for alla esterase, hematuria and proteinuria - Send urine for culture - Begin treatment with Macrobid 100 mg BID for 7 days - Patient education for prevention given - UA DIP B/O - URINE CULTURE - NITROFURANTOIN MONOHYDRATE AND MACROCRYSTAL 100 MG ORAL CAP Prescription instructions reviewed with patient as applicable. Patient advised if symptoms do not improve or if symptoms worsen sooner, to contact the office for further evaluation by their primary care physician. Potential red flag symptoms discussed with the patient. Reviewed appropriate action plan to take if red flag symptoms occur. Patient agreeable to treatment plan. Judson Zhang APRN.IVÁN Zhang APRN.IVÁN 03/27/2018 10:11 AM Signed URINARY TRACT INFECTION GENERAL INFORMATION: A urinary tract infection (UTI) is an infection of the bladder or kidneys. A bladder infection, called cystitis, is the more common type. If the infection travels up to the kidneys, it is called pyelonephritis. This can be more serious. UTIs are a common problem in women. Having sexual relations can leave a woman more susceptible to developing a UTI, but it is not sexually transmitted like gonorrhea. Some women have a problem with recurrent UTIs. INSTRUCTIONS: 1. Your doctor prescribed an antibiotic to treat the UTI. Take exactly as directed. Be sure to take all the medication prescribed, even if your symptoms disappear. If you stop treatment early, the infection may not be fully treated and the symptoms could come back again. 2. Get plenty of rest. You may take acetaminophen for fever and aches. 3. Drink 6 to 8 glasses of fluids, especially water, every day. This helps wash out germs from your urinary tract. Cranberry juice or other sources of vitamin C are also good for you. 4. Urinate often, as soon as you feel the urge. Empty your bladder completely. Urinate before and after you have sex. 5. Always wipe from front to back after going to the bathroom. This pushes germs away from your bladder, rather than towards it. 6. Showers are better than baths, and you should wash the genital area daily. Avoid bubble bath or bath oils if you do take a bath. 7. Wear underwear and pantyhose with a cotton crotch. CONTACT YOUR DOCTOR: 1. You have a temperature over 102F (38.8C) after 48 hours on medication. 2. You notice blood in your urine. 3. Your symptoms don't improve in 2 days. 4. You develop nausea, vomiting, diarrhea, or a rash. 5. You develop new or unexplained symptoms. These may be related to the medication you are taking. 6. Your symptoms return after you finish treatment. RETURN TO THE EMERGENCY DEPARTMENT IF: You develop vomiting and can't keep your medication or fluids down. Referring Provider: SELF [200] Allergies As of Date: 03/27/2018 Noted Allergy Reaction AMOXIL (AMOXICILLIN) 05/10/2005 4 - Hives Comments: uncertain CODEINE 06/15/2005 8 - GI Upset PENICILLINS 06/15/2005 2 - Rash ZITHROMAX Z-JULIET (AZITHROMYCIN) 06/15/2005 8 - GI Upset Comments: She can take this Date Reviewed: 03/27/2018 Reviewed by: Judson [facility]Boston [facility] Center[facility]na Zhang - Fully Assessed Reason for Visit: Urinary Problem [252] Cmt: burning and frequency of urination x 3 days Primary Visit Diagnosis:Burning with urination [R30.0] Order(s):UA DIP B/O [[id number]] Order #: [id number] URINE CULTURE [SQURCUL] Order #: [id number] nitrofurantoin monohydrate and macrocrystal (MACROBID) 100 mg capsuleTake 1 capsule by mouth twice daily with meals for 7 days.Disp: 14 capsuleRfl: 0 phenazopyridine (PYRIDIUM, GERIDIUM) 200 mg tabletTake 1 tablet by mouth three times daily as needed for up to 2 days.Disp: 6 tabletRfl: 0 Prescriptions as of 03/27/2018 Sig: POTASSIUM CHLORIDE ER 10 MEQ * Take 1 capsule by mouth once * ERGOCALCIFEROL (VITAMIN D2) 5* Take 1 capsule by mouth once * CONJUGATED ESTROGENS 0.625 MG* Use 0.5 g vaginally once each* CONJUGATED ESTROGENS 0.625 MG* Use 1 g vaginally once daily. LORATADINE 10 MG TABLET Take one(1) tablet daily as n* NITROFURANTOIN MONOHYDRATE AND * Take 1 capsule by mouth twice* PHENAZOPYRIDINE 200 MG TABLET Take 1 tablet by mouth three * PREDNISONE 20 MG TABLET Prednisone 40 mg (2-20mg tabl* Patient not taking: Reported on 03/27/2018 UREA 40 % TOPICAL CREAM Apply 1 application to affect* Patient not taking: Reported on 03/27/2018 LORAZEPAM 0.5 MG TABLET Take 1 tablet by mouth three * Patient not taking: Reported on 03/27/2018 Problem List As Of Date 03/27/2018 Noted Resolved Osteopenia [M85.80] INVALID FOR* More... Constipation [K59.00] INVALID FOR* Donor for liver transplant [Z52.6] INVALID FOR* Abdominal adhesions [K66.0] INVALID FOR* Abdominal pain [R10.9] INVALID FOR* OA (osteoarthritis) [M19.90] INVALID FOR* Lumbar stenosis [M48.061] INVALID FOR* More... Low back pain radiating to left leg [M54.5, M79*INVALID FOR* Overactive bladder [N32.81] INVALID FOR* Ganglion cyst of finger of right hand [M67.441] INVALID FOR* Other instructions from your clinician: URINARY TRACT INFECTION GENERAL INFORMATION: A urinary tract infection (UTI) is an infection of the bladder or kidneys. A bladder infection, called cystitis, is the more common type. If the infection travels up to the kidneys, it is called pyelonephritis. This can be more serious. UTIs are a common problem in women. Having sexual relations can leave a woman more susceptible to developing a UTI, but it is not sexually transmitted like gonorrhea. Some women have a problem with recurrent UTIs. INSTRUCTIONS: 1. Your doctor prescribed an antibiotic to treat the UTI. Take exactly as directed. Be sure to take all the medication prescribed, even if your symptoms disappear. If you stop treatment early, the infection may not be fully treated and the symptoms could come back again. 2. Get plenty of rest. You may take acetaminophen for fever and aches. 3. Drink 6 to 8 glasses of fluids, especially water, every day. This helps wash out germs from your urinary tract. Cranberry juice or other sources of vitamin C are also good for you. 4. Urinate often, as soon as you feel the urge. Empty your bladder completely. Urinate before and after you have sex. 5. Always wipe from front to back after going to the bathroom. This pushes germs away from your bladder, rather than towards it. 6. Showers are better than baths, and you should wash the genital area daily. Avoid bubble bath or bath oils if you do take a bath. 7. Wear underwear and pantyhose with a cotton crotch. CONTACT YOUR DOCTOR: 1. You have a temperature over 102F (38.8C) after 48 hours on medication. 2. You notice blood in your urine. 3. Your symptoms don't improve in 2 days. 4. You develop nausea, vomiting, diarrhea, or a rash. 5. You develop new or unexplained symptoms. These may be related to the medication you are taking. 6. Your symptoms return after you finish treatment. RETURN TO THE EMERGENCY DEPARTMENT IF: You develop vomiting and can't keep your medication or fluids down. Prescriptions ordered this encounter Disp Refills Start End NITROFURANTOIN MONOHYDRATE AND MACROCR* 14 c* 0 03/27/2018 04/03/2018 Route: ORAL Sig: Take 1 capsule by mouth twice daily with meals for 7 days. PHENAZOPYRIDINE 200 MG TABLET 6 ta* 0 03/27/2018 03/29/2018 Route: ORAL Sig: Take 1 tablet by mouth three times daily as needed for up to 2 days. Encounter Status:Closed by JUDSON ZHANG CNP on 03/27/18 PROGRESS Observed: 11/09/2017 Status: COMPLETED Source: [place] 12:20 PM [facility] REPOSITORY HNO ID: [id number] Author: Judson Zhang Service: (none) Author Type: Nurse Practitioner Type: Progress Notes Filed: 11/09/2017 12:36 PM Note Text: Subjective HPI HPI Nic Cates is a 62 year old female who presents today for CC of left eye redness. This started 1 day ago. Has tried nothing. Symptoms are worsened by nothing. Risk factors may have gotten facial cream in eye. .Patient presents with: Eye Problem: left eye x this am, did get some facial cream by eye yesterday PAST MEDICAL HISTORY Diagnosis Date - Internal hemorrhoids without mention of complication - Intestinal infection due to Clostridium difficile 2007 - PMH - PAST MEDICAL HISTORY OF vertigo - PMH - PAST MEDICAL HISTORY OF prolapsed bladder - Unspecified constipation PAST SURGICAL HISTORY Procedure Laterality Date - COLONOSCOP W/ OR W/O [facility] SPEC 09/25/05 - COLONOSCOP W/ OR W/O BRS SPEC 05/01/2013 Colonoscopy - DANDC, DIAG AND/OR THERAPEUTIC 12/11/1988 Tubal - PAST SURGICAL HISTORY OF age 4 tonsils - PAST SURGICAL HISTORY OF age 2 head trama - PAST SURGICAL HISTORY OF 01/13/2009 donated portion liver, to her neice with liver cancer - PAST SURGICAL HISTORY OF 10/25/2009 bladder repair sling - REPAIR BLADDER WOUND/INJ,COMPLIC 05/2008 [facility] - SALPINGECTOMY 12/25/1988 right tubal ectopic - TOTAL ABDOM HYSTERECTOMY 05/2008 [facility] bilat.salpingo-oophorectomy ALLERGIES Amoxil [Amoxicillin]; Codeine; Penicillins; Zithromax Z-Juliet [Azithromycin] MEDICATIONS potassium chloride SR (MICRO-K) 10 mEq CR capsule Take 1 capsule by mouth once daily. ergocalciferol, vitamin D2, (VITAMIN D) 50,000 unit capsule Take 1 capsule by mouth once each week. TAKE ON MONDAYS urea (CARMOL) 40 % crea Apply 1 application to affected area as needed. conjugated estrogens (PREMARIN) vaginal cream Use 0.5 g vaginally once each week. LORazepam (ATIVAN) 0.5 mg tab Take 1 tablet by mouth three times daily as needed. conjugated estrogens (PREMARIN) vaginal cream Use 1 g vaginally once daily. loratadine (CLARITIN) 10 mg ORAL tablet Take one(1) tablet daily as needed for allergy symptoms. predniSONE (DELTASONE) 20 mg tablet Prednisone 40 mg (2-20mg tablets) po QD for 5 days FAMILY HISTORY Problem Relation Age of Onset - Prostate Cancer Father HTN - Diabetes Mother borderline - Skin Cancer [OTHER] Mother HTN - Hypertension Brother - HIV [OTHER] Brother cancer related - Hypertension Sister also endometriosis - depression [OTHER] Sister also anxiety - Anxiety [OTHER] Sister Social History Substance Use Topics - Smoking status: Former Smoker - Smokeless tobacco: Never Used Comment: Only smoked in her early 20's x 2-3 years - Alcohol use Yes Comment: Seldom Review of Systems Constitutional: Negative for chills and fever. HENT: Negative for ear discharge, ear pain and sore throat. Eyes: Positive for discharge and redness. Negative for blurred vision, double vision, photophobia and pain. Neurological: Negative for headaches. Objective Physical Exam Constitutional: She is oriented to person, place, and time and well-developed, well-nourished, and in no distress. Vital signs are normal. Non-toxic appearance. She does not have a sickly appearance. No distress. HENT: Right Ear: Hearing, tympanic membrane and external ear normal. Left Ear: Hearing, tympanic membrane, external ear and ear canal normal. Nose: No mucosal edema or sinus tenderness. Mouth/Throat: Uvula is midline, oropharynx is clear and moist and mucous membranes are normal. Eyes: Right eye exhibits no discharge. Left eye exhibits discharge (mild/green). Right conjunctiva is not injected. Left conjunctiva is injected. Lymphadenopathy: Right cervical: No superficial cervical adenopathy present. Left cervical: No superficial cervical adenopathy present. No cervical lymphadenopathy bilaterally Neurological: She is oriented to person, place, and time. ASSESSMENT/PLAN: 1. Bacterial conjunctivitis - ICD9: 372.39, 041.9, ICD10: H10.9 Bacterial - see medication orders - course and contagiousness issues discussed, including hand washing. - Instructed to call if high fever, development of periorbital redness or swelling, eye pain, visual changes, concerns or if symptoms persist. - CIPROFLOXACIN 0.3 % EYE DROPS Prescription instructions reviewed with patient as applicable. Patient advised if symptoms do not improve or if symptoms worsen sooner, to contact the office for further evaluation by their primary care physician. Potential red flag symptoms discussed with the patient. Reviewed appropriate action plan to take if red flag symptoms occur. Patient agreeable to treatment plan. Judson Zhang CNP CNOV Observed: 11/09/2017 Status: COMPLETED Source: [place] 12:15 PM [facility] REPOSITORY Office Visit ([facility]) NIC CATES ([id number]) 1955 F Date Time Provider Department 11/09/17 12:15 PM JUDSON ZHANG (IVÁN) [facility] During your visit today, we recorded the following information about you: Temperature Pulse Respiration Blood pressure 97.5 degrees 70/minute 16/minute 124/80 Weight 58.5 kg Judson Zhang CNP 11/09/2017 12:36 PM Signed Subjective HPI HPI Nic Cates is a 62 year old female who presents today for CC of left eye redness. This started 1 day ago. Has tried nothing. Symptoms are worsened by nothing. Risk factors may have gotten facial cream in eye. .Patient presents with: Eye Problem: left eye x this am, did get some facial cream by eye yesterday PAST MEDICAL HISTORY Diagnosis Date - Internal hemorrhoids without mention of complication - Intestinal infection due to Clostridium difficile 2007 - PMH - PAST MEDICAL HISTORY OF vertigo - PMH - PAST MEDICAL HISTORY OF prolapsed bladder - Unspecified constipation PAST SURGICAL HISTORY Procedure Laterality Date - COLONOSCOP W/ OR W/O [facility] SPEC 09/25/05 - COLONOSCOP W/ OR W/O BRS SPEC 05/01/2013 Colonoscopy - DANDamp;C, DIAG AND/OR THERAPEUTIC 12/11/1988 Tubal - PAST SURGICAL HISTORY OF age 4 tonsils - PAST SURGICAL HISTORY OF age 2 head trama - PAST SURGICAL HISTORY OF 01/13/2009 donated portion liver, to her neice with liver cancer - PAST SURGICAL HISTORY OF 10/25/2009 bladder repair sling - REPAIR BLADDER WOUND/INJ,COMPLIC 05/2008 [facility] - SALPINGECTOMY 12/25/1988 right tubal ectopic - TOTAL ABDOM HYSTERECTOMY 05/2008 [facility] bilat.salpingo-oophorectomy ALLERGIES Amoxil [Amoxicillin]; Codeine; Penicillins; Zithromax Z-Juliet [Azithromycin] MEDICATIONS potassium chloride SR (MICRO-K) 10 mEq CR capsule Take 1 capsule by mouth once daily. ergocalciferol, vitamin D2, (VITAMIN D) 50,000 unit capsule Take 1 capsule by mouth once each week. TAKE ON MONDAYS urea (CARMOL) 40 % crea Apply 1 application to affected area as needed. conjugated estrogens (PREMARIN) vaginal cream Use 0.5 g vaginally once each week. LORazepam (ATIVAN) 0.5 mg tab Take 1 tablet by mouth three times daily as needed. conjugated estrogens (PREMARIN) vaginal cream Use 1 g vaginally once daily. loratadine (CLARITIN) 10 mg ORAL tablet Take one(1) tablet daily as needed for allergy symptoms. predniSONE (DELTASONE) 20 mg tablet Prednisone 40 mg (2-20mg tablets) po QD for 5 days FAMILY HISTORY Problem Relation Age of Onset - Prostate Cancer Father HTN - Diabetes Mother borderline - Skin Cancer [OTHER] Mother HTN - Hypertension Brother - HIV [OTHER] Brother cancer related - Hypertension Sister also endometriosis - depression [OTHER] Sister also anxiety - Anxiety [OTHER] Sister Social History Substance Use Topics - Smoking status: Former Smoker - Smokeless tobacco: Never Used Comment: Only smoked in her early 20's x 2-3 years - Alcohol use Yes Comment: Seldom Review of Systems Constitutional: Negative for chills and fever. HENT: Negative for ear discharge, ear pain and sore throat. Eyes: Positive for discharge and redness. Negative for blurred vision, double vision, photophobia and pain. Neurological: Negative for headaches. Objective Physical Exam Constitutional: She is oriented to person, place, and time and well-developed, well-nourished, and in no distress. Vital signs are normal. Non-toxic appearance. She does not have a sickly appearance. No distress. HENT: Right Ear: Hearing, tympanic membrane and external ear normal. Left Ear: Hearing, tympanic membrane, external ear and ear canal normal. Nose: No mucosal edema or sinus tenderness. Mouth/Throat: Uvula is midline, oropharynx is clear and moist and mucous membranes are normal. Eyes: Right eye exhibits no discharge. Left eye exhibits discharge (mild/green). Right conjunctiva is not injected. Left conjunctiva is injected. Lymphadenopathy: Right cervical: No superficial cervical adenopathy present. Left cervical: No superficial cervical adenopathy present. No cervical lymphadenopathy bilaterally Neurological: She is oriented to person, place, and time. ASSESSMENT/PLAN: 1. Bacterial conjunctivitis - ICD9: 372.39, 041.9, ICD10: H10.9 Bacterial - see medication orders - course and contagiousness issues discussed, including hand washing. - Instructed to call if high fever, development of periorbital redness or swelling, eye pain, visual changes, concerns or if symptoms persist. - CIPROFLOXACIN 0.3 % EYE DROPS Prescription instructions reviewed with patient as applicable. Patient advised if symptoms do not improve or if symptoms worsen sooner, to contact the office for further evaluation by their primary care physician. Potential red flag symptoms discussed with the patient. Reviewed appropriate action plan to take if red flag symptoms occur. Patient agreeable to treatment plan. IVÁN Eastman CNP 11/09/2017 12:27 PM Signed CONJUNCTIVITIS GENERAL INFORMATION: Conjunctivitis is also known as pink eye. It is an irritation of the underside of the eyelid and the white part of the eye. Conjunctivitis can be caused by infection, chemical irritation, or allergy. If infectious, it is very contagious. INSTRUCTIONS: The doctor has prescribed antibiotic drops or ointment. Use them as prescribed. Do not touch the dropper to the eye. Throw out the medication after completing treatment. If the doctor only prescribed the medication to be placed in one eye, and the other eye starts to bother you with the same symptoms, you may treat it in the same fashion. To ease discomfort, apply a warm or cool clean washcloth to your eye several times a day for 10 to 20 minutes. Gently wipe away discharge from the eyes with tissues. Wash your hands often with soap and use paper towels to dry them. Do not share towels, washcloths, or pillows. This could spread infection. Do not use eye make-up until the infection has resolved. Keep contact lenses out of eyes until the irritation is gone. Discard any eye make-up which you may have contaminated before the infection was diagnosed, and any eye make-up older than one year. Children should not return to school or daycare until the eye is no longer pink. Do not drive or operate machinery if your vision is blurred. Wear sunglasses if your eyes are sensitive to the light. CONTACT YOUR DOCTOR IF YOU OR YOUR CHILD NOTICE: *The eye is still pink 3 days after starting treatment with medicine. *Pain in the eye increases. *The redness is spreading. *Vision becomes blurred. *You have a temperature over 100.5 F (38 C). Referring Provider: SELF [200] Allergies As of Date: 11/09/2017 Noted Allergy Reaction AMOXIL (AMOXICILLIN) 05/10/2005 4 - Hives Comments: uncertain CODEINE 06/15/2005 8 - GI Upset PENICILLINS 06/15/2005 2 - Rash ZITHROMAX Z-JULIET (AZITHROMYCIN) 06/15/2005 8 - GI Upset Comments: She can take this Date Reviewed: 11/09/2017 Reviewed by: Judson [facility]Boston [facility] CenterMorena Zhang - Fully Assessed Reason for Visit: Eye Problem [43] Cmt: left eye x this am, did get some facial cream by eye yesterday Primary Visit Diagnosis:Bacterial conjunctivitis [H10.9] Order(s):ciprofloxacin HCl (CILOXAN) 0.3 % ophthalmic solutionUse 1-2 Drops in both eyes four times daily for 5 days.Disp: 1 BottleRfl: 0 Prescriptions as of 11/09/2017 Sig: POTASSIUM CHLORIDE ER 10 MEQ * Take 1 capsule by mouth once * ERGOCALCIFEROL (VITAMIN D2) 5* Take 1 capsule by mouth once * UREA 40 % TOPICAL CREAM Apply 1 application to affect* CONJUGATED ESTROGENS 0.625 MG* Use 0.5 g vaginally once each* LORAZEPAM 0.5 MG TABLET Take 1 tablet by mouth three * CONJUGATED ESTROGENS 0.625 MG* Use 1 g vaginally once daily. LORATADINE 10 MG TABLET Take one(1) tablet daily as n* CIPROFLOXACIN 0.3 % EYE DROPS Use 1-2 Drops in both eyes fo* PREDNISONE 20 MG TABLET Prednisone 40 mg (2-20mg tabl* Medication notes this encounter PREDNISONE 20 MG TABLET >> Taylor Vazquez Ma 11/09/2017 12:14 PM >> TAYLOR VAZQUEZ MA Nov 09, 2017 12:14 PM done Problem List As Of Date 11/09/2017 Noted Resolved Osteopenia [M85.80] INVALID FOR* More... Constipation [K59.00] INVALID FOR* Donor for liver transplant [Z52.6] INVALID FOR* Abdominal adhesions [K66.0] INVALID FOR* Abdominal pain [R10.9] INVALID FOR* OA (osteoarthritis) [M19.90] INVALID FOR* Lumbar stenosis [M48.061] INVALID FOR* More... Low back pain radiating to left leg [M54.5] INVALID FOR* Overactive bladder [N32.81] INVALID FOR* Ganglion cyst of finger of right hand [M67.441] INVALID FOR* Other instructions from your clinician: CONJUNCTIVITIS GENERAL INFORMATION: Conjunctivitis is also known as pink eye. It is an irritation of the underside of the eyelid and the white part of the eye. Conjunctivitis can be caused by infection, chemical irritation, or allergy. If infectious, it is very contagious. INSTRUCTIONS: The doctor has prescribed antibiotic drops or ointment. Use them as prescribed. Do not touch the dropper to the eye. Throw out the medication after completing treatment. If the doctor only prescribed the medication to be placed in one eye, and the other eye starts to bother you with the same symptoms, you may treat it in the same fashion. To ease discomfort, apply a warm or cool clean washcloth to your eye several times a day for 10 to 20 minutes. Gently wipe away discharge from the eyes with tissues. Wash your hands often with soap and use paper towels to dry them. Do not share towels, washcloths, or pillows. This could spread infection. Do not use eye make-up until the infection has resolved. Keep contact lenses out of eyes until the irritation is gone. Discard any eye make-up which you may have contaminated before the infection was diagnosed, and any eye make-up older than one year. Children should not return to school or daycare until the eye is no longer pink. Do not drive or operate machinery if your vision is blurred. Wear sunglasses if your eyes are sensitive to the light. CONTACT YOUR DOCTOR IF YOU OR YOUR CHILD NOTICE: *The eye is still pink 3 days after starting treatment with medicine. *Pain in the eye increases. *The redness is spreading. *Vision becomes blurred. *You have a temperature over 100.5 F (38 C). Prescriptions ordered this encounter Disp Refills Start End CIPROFLOXACIN 0.3 % EYE DROPS 1 [place]* 0 11/09/2017 11/14/2017 Route: BOTH EYES Sig: Use 1-2 Drops in both eyes four times daily for 5 days. Encounter Status:Closed by JUDSON ZHANG CNP on 11/09/17 Observed: 11/07/2017 Status: F Source: [place] URINE CULTURE 6:13 PM [facility] REPOSITORY Sp. Request/Comment: - Specimen received in preservative Culture Result - 10,000 - <50,000 CFU/ml Normal urogenital cindy Performed By: #### URCUL #### [facility] [address] [place] [id number] PROGRESS Observed: 11/07/2017 Status: COMPLETED Source: [place] 6:06 PM [facility] REPOSITORY HNO ID: [id number] Author: Sheila Barrera) Faby Service: (none) Author Type: Physician Sewing Machine Assembler Type: Progress Notes Filed: 11/07/2017 6:37 PM Note Text: Subjective HPI Pt presents with urinary frequency and urgency x 3-4 days. She is not diabetic. She has had bladder surgeries in the past. No blood in urine. No dysuria. She has had some pressure in lower abdomen. Review of Systems All other systems reviewed and are negative. PAST MEDICAL HISTORY Diagnosis Date - Internal hemorrhoids without mention of complication - Intestinal infection due to Clostridium difficile 2007 - PMH - PAST MEDICAL HISTORY OF vertigo - PMH - PAST MEDICAL HISTORY OF prolapsed bladder - Unspecified constipation Current Outpatient Prescriptions: predniSONE (DELTASONE) 20 mg tablet Prednisone 40 mg (2-20mg tablets) po QD for 5 days Disp: 10 tablet Rfl: 0 potassium chloride SR (MICRO-K) 10 mEq CR capsule Take 1 capsule by mouth once daily. Disp: 30 capsule Rfl: 1 ergocalciferol, vitamin D2, (VITAMIN D) 50,000 unit capsule Take 1 capsule by mouth once each week. TAKE ON MONDAYS Disp: 13 capsule Rfl: 4 urea (CARMOL) 40 % crea Apply 1 application to affected area as needed. Disp: 200 g Rfl: 5 conjugated estrogens (PREMARIN) vaginal cream Use 0.5 g vaginally once each week. Disp: 1 Tube Rfl: 3 LORazepam (ATIVAN) 0.5 mg tab Take 1 tablet by mouth three times daily as needed. Disp: 20 tablet Rfl: 0 loratadine (CLARITIN) 10 mg ORAL tablet Take one(1) tablet daily as needed for allergy symptoms. Disp: 30 Tab Rfl: 1 conjugated estrogens (PREMARIN) vaginal cream Use 1 g vaginally once daily. Disp: 1 Tube Rfl: 12 No current facility-administered medications for this visit. PAST SURGICAL HISTORY Procedure Laterality Date - COLONOSCOP W/ OR W/O [facility] SPEC 09/25/05 - COLONOSCOP W/ OR W/O [facility] SPEC 05/01/2013 Colonoscopy - DANDC, DIAG AND/OR THERAPEUTIC 12/11/1988 Tubal - PAST SURGICAL HISTORY OF age 4 tonsils - PAST SURGICAL HISTORY OF age 2 head trama - PAST SURGICAL HISTORY OF 01/13/2009 donated portion liver, to her neice with liver cancer - PAST SURGICAL HISTORY OF 10/25/2009 bladder repair sling - REPAIR BLADDER WOUND/INJ,COMPLIC 05/2008 [facility] - SALPINGECTOMY 12/25/1988 right tubal ectopic - TOTAL ABDOM HYSTERECTOMY 05/2008 [facility] bilat.salpingo-oophorectomy FAMILY HISTORY Problem Relation Age of Onset - Prostate Cancer Father HTN - Diabetes Mother borderline - Skin Cancer [OTHER] Mother HTN - Hypertension Brother - HIV [OTHER] Brother cancer related - Hypertension Sister also endometriosis - depression [OTHER] Sister also anxiety - Anxiety [OTHER] Sister Social History Substance Use Topics - Smoking status: Former Smoker - Smokeless tobacco: Never Used Comment: Only smoked in her early 20's x 2-3 years - Alcohol use Yes Comment: Seldom BP 110/70 Pulse 74 Temp 36.1 ?C (97 ?F) (Tympanic) Resp 16 Wt 57.6 kg (127 lb) LMP 01/30/2006 BMI 22.5 kg/m2 Objective Physical Exam Constitutional: She is oriented to person, place, and time and well-developed, well-nourished, and in no distress. HENT: Head: Normocephalic and atraumatic. Neck: Normal range of motion. Cardiovascular: Normal rate, regular rhythm and normal heart sounds. Pulmonary/Chest: Effort normal and breath sounds normal. Abdominal: Soft. Bowel sounds are normal. She exhibits no distension. There is no tenderness. There is no rebound. Musculoskeletal: No CVA tenderness Neurological: She is oriented to person, place, and time. Gait normal. Skin: Skin is warm and dry. Psychiatric: Affect and judgment normal. Nursing note and vitals reviewed. ASSESSMENT/PLAN: 1. Urinary frequency - ICD9: 788.41, ICD10: R35.0 acute - Patient education for prevention given Pt dip here is negative for infection, sent for culture. Pt did recently start potassium a week ago , last potassium was 3.6. I did instruct her to go ahead and have her blood work drawn tomorrow to recheck her potassium as she didn't know she was supposed to have this redrawn. There was an order from her pcp in there to have this done. Discussed with patient concerning symptoms to go to the emergency department or follow up here. Pt agreeable with this plan. - UA DIP B/O - URINE CULTURE Sheila Ely PA-C CNOV Observed: 11/07/2017 Status: COMPLETED Source: [place] 5:30 PM [facility] REPOSITORY Office Visit (WSTR) NIC CATES ([id number]) 1955 F Date Time Provider Department 11/07/17 5:30 PM SHEILA ELY (SHIREEN) WSTR During your visit today, we recorded the following information about you: Temperature Pulse Respiration Blood pressure 97 degrees 74/minute 16/minute 110/70 Weight 57.6 kg Sheila Ely PA-C 11/07/2017 6:37 PM Signed Subjective HPI Pt presents with urinary frequency and urgency x 3-4 days. She is not diabetic. She has had bladder surgeries in the past. No blood in urine. No dysuria. She has had some pressure in lower abdomen. Review of Systems All other systems reviewed and are negative. PAST MEDICAL HISTORY Diagnosis Date - Internal hemorrhoids without mention of complication - Intestinal infection due to Clostridium difficile 2007 - PMH - PAST MEDICAL HISTORY OF vertigo - PMH - PAST MEDICAL HISTORY OF prolapsed bladder - Unspecified constipation Current Outpatient Prescriptions: predniSONE (DELTASONE) 20 mg tablet Prednisone 40 mg (2-20mg tablets) po QD for 5 days Disp: 10 tablet Rfl: 0 potassium chloride SR (MICRO-K) 10 mEq CR capsule Take 1 capsule by mouth once daily. Disp: 30 capsule Rfl: 1 ergocalciferol, vitamin D2, (VITAMIN D) 50,000 unit capsule Take 1 capsule by mouth once each week. TAKE ON MONDAYS Disp: 13 capsule Rfl: 4 urea (CARMOL) 40 % crea Apply 1 application to affected area as needed. Disp: 200 g Rfl: 5 conjugated estrogens (PREMARIN) vaginal cream Use 0.5 g vaginally once each week. Disp: 1 Tube Rfl: 3 LORazepam (ATIVAN) 0.5 mg tab Take 1 tablet by mouth three times daily as needed. Disp: 20 tablet Rfl: 0 loratadine (CLARITIN) 10 mg ORAL tablet Take one(1) tablet daily as needed for allergy symptoms. Disp: 30 Tab Rfl: 1 conjugated estrogens (PREMARIN) vaginal cream Use 1 g vaginally once daily. Disp: 1 Tube Rfl: 12 No current facility-administered medications for this visit. PAST SURGICAL HISTORY Procedure Laterality Date - COLONOSCOP W/ OR W/O [facility] SPEC 09/25/05 - COLONOSCOP W/ OR W/O [facility] SPEC 05/01/2013 Colonoscopy - DANDamp;C, DIAG AND/OR THERAPEUTIC 12/11/1988 Tubal - PAST SURGICAL HISTORY OF age 4 tonsils - PAST SURGICAL HISTORY OF age 2 head trama - PAST SURGICAL HISTORY OF 01/13/2009 donated portion liver, to her neice with liver cancer - PAST SURGICAL HISTORY OF 10/25/2009 bladder repair sling - REPAIR BLADDER WOUND/INJ,COMPLIC 05/2008 [facility] - SALPINGECTOMY 12/25/1988 right tubal ectopic - TOTAL ABDOM HYSTERECTOMY 05/2008 [facility] bilat.salpingo-oophorectomy FAMILY HISTORY Problem Relation Age of Onset - Prostate Cancer Father HTN - Diabetes Mother borderline - Skin Cancer [OTHER] Mother HTN - Hypertension Brother - HIV [OTHER] Brother cancer related - Hypertension Sister also endometriosis - depression [OTHER] Sister also anxiety - Anxiety [OTHER] Sister Social History Substance Use Topics - Smoking status: Former Smoker - Smokeless tobacco: Never Used Comment: Only smoked in her early 20's x 2-3 years - Alcohol use Yes Comment: Seldom BP 110/70 Pulse 74 Temp 36.1 ?C (97 ?F) (Tympanic) Resp 16 Wt 57.6 kg (127 lb) LMP 01/30/2006 BMI 22.5 kg/m2 Objective Physical Exam Constitutional: She is oriented to person, place, and time and well-developed, well-nourished, and in no distress. HENT: Head: Normocephalic and atraumatic. Neck: Normal range of motion. Cardiovascular: Normal rate, regular rhythm and normal heart sounds. Pulmonary/Chest: Effort normal and breath sounds normal. Abdominal: Soft. Bowel sounds are normal. She exhibits no distension. There is no tenderness. There is no rebound. Musculoskeletal: No CVA tenderness Neurological: She is oriented to person, place, and time. Gait normal. Skin: Skin is warm and dry. Psychiatric: Affect and judgment normal. Nursing note and vitals reviewed. ASSESSMENT/PLAN: 1. Urinary frequency - ICD9: 788.41, ICD10: R35.0 acute - Patient education for prevention given Pt dip here is negative for infection, sent for culture. Pt did recently start potassium a week ago , last potassium was 3.6. I did instruct her to go ahead and have her blood work drawn tomorrow to recheck her potassium as she didn't know she was supposed to have this redrawn. There was an order from her pcp in there to have this done. Discussed with patient concerning symptoms to go to the emergency department or follow up here. Pt agreeable with this plan. - UA DIP B/O - URINE CULTURE Sheila Ely PA-C Referring Provider: SELF [[id number]] Allergies As of Date: 11/07/2017 Noted Allergy Reaction AMOXIL (AMOXICILLIN) 05/10/2005 4 - Hives Comments: uncertain CODEINE 06/15/2005 8 - GI Upset PENICILLINS 06/15/2005 2 - Rash ZITHROMAX Z-JULIET (AZITHROMYCIN) 06/15/2005 8 - GI Upset Comments: She can take this Date Reviewed: 11/07/2017 Reviewed by: Taylor Vazquez Ma - Fully Assessed Reason for Visit: Urinary Frequency [1086] Cmt: x few days Primary Visit Diagnosis:Urinary frequency [R35.0] Order(s):UA DIP B/O [8184916] Order #: [id number] URINE CULTURE [SQURCUL] Order #: [id number] Prescriptions as of 11/07/2017 Sig: PREDNISONE 20 MG TABLET Prednisone 40 mg (2-20mg tabl* POTASSIUM CHLORIDE ER 10 MEQ * Take 1 capsule by mouth once * ERGOCALCIFEROL (VITAMIN D2) 5* Take 1 capsule by mouth once * UREA 40 % TOPICAL CREAM Apply 1 application to affect* CONJUGATED ESTROGENS 0.625 MG* Use 0.5 g vaginally once each* LORAZEPAM 0.5 MG TABLET Take 1 tablet by mouth three * LORATADINE 10 MG TABLET Take one(1) tablet daily as n* CONJUGATED ESTROGENS 0.625 MG* Use 1 g vaginally once daily. Problem List As Of Date 11/07/2017 Noted Resolved Osteopenia [M85.80] INVALID FOR* More... Constipation [K59.00] INVALID FOR* Donor for liver transplant [Z52.6] INVALID FOR* Abdominal adhesions [K66.0] INVALID FOR* Abdominal pain [R10.9] INVALID FOR* OA (osteoarthritis) [M19.90] INVALID FOR* Lumbar stenosis [M48.061] INVALID FOR* More... Low back pain radiating to left leg [M54.5] INVALID FOR* Overactive bladder [N32.81] INVALID FOR* Ganglion cyst of finger of right hand [M67.441] INVALID FOR* Encounter Status:Closed by SHEILA ELY PA-C on 11/07/17 XR FOOT 3V AP/LAT/OBL Observed: 11/07/2017 Status: F Source: [place] RT 4:11 PM [facility] REPOSITORY * * *Final Report* * * DATE OF EXAM: Nov 07 2017 4:11PM WRX [id number] - XR FOOT 3V AP/LAT/OBL RT / PROCEDURE REASON: multiple diagnoses * * * * Physician Interpretation * * * * HISTORY: 62-YEAR-OLD FEMALE WITH Benign neoplasm of peripheral nerves and autonomic nervous system, unspecified Pain in right ankle and joints of right foot . generalized right foot pain for a couple months patient states TECHNIQUE: XR FOOT 3V AP/LAT/OBL RT Laterality: RIGHT Number of different views (projections): 3 COMPARISON: None RESULT: Osteophyte first MTP joint. Narrowing of DIP joint of the third through fifth digits and PIP joint of the fourth and fifth digit. Bones and joints otherwise intact. No fracture. IMPRESSION: MILD FOREFOOT DEGENERATIVE CHANGE. Oceanographer Physical: PSCB Transcribe Date/Time: Nov 08 2017 4:53P Dictated by : JAMES JUAREZ MD This examination was interpreted and the report reviewed and electronically signed by: JAMES JUAREZ MD on Nov 08 2017 4:54PM EST [id number] PROGRESS Observed: 11/07/2017 Status: COMPLETED Source: [place] 4:03 PM [facility] REPOSITORY HNO ID: [id number] Author: Cris Doyle (Tech) Service: (none) Author Type: Calculus Tutor Type: Progress Notes Filed: 11/07/2017 4:11 PM Note Text: Radiology Service Progress Note PATIENT NAME: Nic Cates DATE OF SERVICE: November 07, 2017 TIME: 4:03 PM PATIENT IDENTITY VERIFICATION COMPLETED USING TWO (2) METHODS: Patient confirmed name verbally and Date of . PATIENT GENDER DATA: Female. status: : No status: NO. PATIENT RELEVANT IMPLANT DATA REVIEWED: Not Applicable RADIOLOGY DEPARTMENT: General X-ray: Exam(s) Completed: Lower Extremity X-Ray(s): Foot, Right and Wt. Bearing: PERIPHERAL IV DATA: Not applicable SIGNED BY: Cris Rain November 07, 2017 4:03 PM PROGRESS Observed: 11/07/2017 Status: COMPLETED Source: [place] 3:44 PM [facility] REPOSITORY HNO ID: [id number] Author: Dianna Millard Service: (none) Author Type: Physician Type: Progress Notes Filed: 11/07/2017 7:40 PM Note Text: Follow up podiatric office visit for: Chief Complaint: This 62 year old who presents for follow up:right 2nd interspace injection. Patient had injection about 4 weeks ago but cannot say for certainty that the injection helped her. She states over the past month, there has still been pain but there is not the stabbing sense of pain. Patient states the pain is more annoying, not severe. She states the pain is 2/10. PAIN EVALUATION 11/07/2017 Pain Score: 2 Pain Location: Foot-Right Description: Sore Duration Amount of Time: 1 Duration Units: Years Frequency: Intermittent Intervention: Relaxation;Reposition No results found for: HBA1C PCP: SANDRINE JUDD MD PAST MEDICAL HISTORY Diagnosis Date - Internal hemorrhoids without mention of complication - Intestinal infection due to Clostridium difficile 2007 - PMH - PAST MEDICAL HISTORY OF vertigo - PMH - PAST MEDICAL HISTORY OF prolapsed bladder - Unspecified constipation Current Outpatient Prescriptions: predniSONE (DELTASONE) 20 mg tablet Prednisone 40 mg (2-20mg tablets) po QD for 5 days potassium chloride SR (MICRO-K) 10 mEq CR capsule Take 1 capsule by mouth once daily. ergocalciferol, vitamin D2, (VITAMIN D) 50,000 unit capsule Take 1 capsule by mouth once each week. TAKE ON MONDAYS urea (CARMOL) 40 % crea Apply 1 application to affected area as needed. conjugated estrogens (PREMARIN) vaginal cream Use 0.5 g vaginally once each week. LORazepam (ATIVAN) 0.5 mg tab Take 1 tablet by mouth three times daily as needed. loratadine (CLARITIN) 10 mg ORAL tablet Take one(1) tablet daily as needed for allergy symptoms. conjugated estrogens (PREMARIN) vaginal cream Use 1 g vaginally once daily. No current facility-administered medications for this visit. ALLERGIES Allergen Reactions - Amoxil [Amoxicillin] Hives uncertain - Codeine GI Upset - Penicillins Rash - Zithromax Z-Juliet [Az* GI Upset She can take this PAST SURGICAL HISTORY Procedure Laterality Date - COLONOSCOP W/ OR W/O [facility] SPEC 09/25/05 - COLONOSCOP W/ OR W/O [facility] SPEC 05/01/2013 Colonoscopy - DANDC, DIAG AND/OR THERAPEUTIC 12/11/1988 Tubal - PAST SURGICAL HISTORY OF age 4 tonsils - PAST SURGICAL HISTORY OF age 2 head trama - PAST SURGICAL HISTORY OF 01/13/2009 donated portion liver, to her neice with liver cancer - PAST SURGICAL HISTORY OF 10/25/2009 bladder repair sling - REPAIR BLADDER WOUND/INJ,COMPLIC 05/2008 [facility] - SALPINGECTOMY 12/25/1988 right tubal ectopic - TOTAL ABDOM HYSTERECTOMY 05/2008 [facility] bilat.salpingo-oophorectomy Physical Exam: Constitutional: Pt is a well developed 62 year old female who is alert, oriented, cooperative and in no apparent distress. OBJECTIVE: NVSI unchanged from previous visit. Dermatological: Nails 1-5 b/l are normal. Webspaces clean and dry 1-4 b/l. Skin appears well hydrated and supple. good color, texture, turgor. No open lesions present. No callosities present. Musculoskeletal/Orthopaedic: Patient has pain to palpation of right 2nd interspace There is slight pain to 2nd mtpj plantar aspect but most pain is along the plantar 2nd interspace, right foot ASSESSMENT: (D36.10) Neuroma (primary encounter diagnosis) (M25.571) Pain in joint involving right ankle and foot PLAN: 1. History and physical examination completed today. 2. Discussed ongoing pain of right foot. Most of her pain is along the 2nd interspace. She had very limited improvement with injection. I did discuss possible capsulitis of 2nd mtpj and I did discuss injection in the joint but she declined 3. I want her to continue with nsaids prn. Will order xray of right foot to assure not acute pathology. If no findings on xray, recommend mri to further access Dianna Millard DPM CNOV Observed: 11/07/2017 Status: COMPLETED Source: [place] 3:25 PM [facility] REPOSITORY Office Visit (PODIWS) NIC CATES ([id number]) 1955 F Date Time Provider Department 11/07/17 3:25 PM DIANNA MILLARD PODIWS During your visit today, we recorded the following information about you: Dianna Millard DPM 11/07/2017 7:40 PM Signed Follow up podiatric office visit for: Chief Complaint: This 62 year old who presents for follow up:right 2nd interspace injection. Patient had injection about 4 weeks ago but cannot say for certainty that the injection helped her. She states over the past month, there has still been pain but there is not the stabbing sense of pain. Patient states the pain is more annoying, not severe. She states the pain is 2/10. PAIN EVALUATION 11/07/2017 Pain Score: 2 Pain Location: Foot-Right Description: Sore Duration Amount of Time: 1 Duration Units: Years Frequency: Intermittent Intervention: Relaxation;Reposition No results found for: HBA1C PCP: SANDRINE JUDD MD PAST MEDICAL HISTORY Diagnosis Date - Internal hemorrhoids without mention of complication - Intestinal infection due to Clostridium difficile 2007 - PMH - PAST MEDICAL HISTORY OF vertigo - PMH - PAST MEDICAL HISTORY OF prolapsed bladder - Unspecified constipation Current Outpatient Prescriptions: predniSONE (DELTASONE) 20 mg tablet Prednisone 40 mg (2-20mg tablets) po QD for 5 days potassium chloride SR (MICRO-K) 10 mEq CR capsule Take 1 capsule by mouth once daily. ergocalciferol, vitamin D2, (VITAMIN D) 50,000 unit capsule Take 1 capsule by mouth once each week. TAKE ON MONDAYS urea (CARMOL) 40 % crea Apply 1 application to affected area as needed. conjugated estrogens (PREMARIN) vaginal cream Use 0.5 g vaginally once each week. LORazepam (ATIVAN) 0.5 mg tab Take 1 tablet by mouth three times daily as needed. loratadine (CLARITIN) 10 mg ORAL tablet Take one(1) tablet daily as needed for allergy symptoms. conjugated estrogens (PREMARIN) vaginal cream Use 1 g vaginally once daily. No current facility-administered medications for this visit. ALLERGIES Allergen Reactions - Amoxil [Amoxicillin] Hives uncertain - Codeine GI Upset - Penicillins Rash - Zithromax Z-Juliet [Az* GI Upset She can take this PAST SURGICAL HISTORY Procedure Laterality Date - COLONOSCOP W/ OR W/O [facility] SPEC 09/25/05 - COLONOSCOP W/ OR W/O [facility] SPEC 05/01/2013 Colonoscopy - DANDamp;C, DIAG AND/OR THERAPEUTIC 12/11/1988 Tubal - PAST SURGICAL HISTORY OF age 4 tonsils - PAST SURGICAL HISTORY OF age 2 head trama - PAST SURGICAL HISTORY OF 01/13/2009 donated portion liver, to her neice with liver cancer - PAST SURGICAL HISTORY OF 10/25/2009 bladder repair sling - REPAIR BLADDER WOUND/INJ,COMPLIC 05/2008 [facility] - SALPINGECTOMY 12/25/1988 right tubal ectopic - TOTAL ABDOM HYSTERECTOMY 05/2008 [facility] bilat.salpingo-oophorectomy Physical Exam: Constitutional: Pt is a well developed 62 year old female who is alert, oriented, cooperative and in no apparent distress. OBJECTIVE: NVSI unchanged from previous visit. Dermatological: Nails 1-5 b/l are normal. Webspaces clean and dry 1-4 b/l. Skin appears well hydrated and supple. good color, texture, turgor. No open lesions present. No callosities present. Musculoskeletal/Orthopaedic: Patient has pain to palpation of right 2nd interspace There is slight pain to 2nd mtpj plantar aspect but most pain is along the plantar 2nd interspace, right foot ASSESSMENT: (D36.10) Neuroma (primary encounter diagnosis) (M25.571) Pain in joint involving right ankle and foot PLAN: 1. History and physical examination completed today. 2. Discussed ongoing pain of right foot. Most of her pain is along the 2nd interspace. She had very limited improvement with injection. I did discuss possible capsulitis of 2nd mtpj and I did discuss injection in the joint but she declined 3. I want her to continue with nsaids prn. Will order xray of right foot to assure not acute pathology. If no findings on xray, recommend mri to further access JESÚS Weinberg RN 11/07/2017 3:51 PM Signed Xray today Our office will call you with the results Referring Provider: DIANNA MILLARD [[id number]] Allergies As of Date: 11/07/2017 Noted Allergy Reaction AMOXIL (AMOXICILLIN) 05/10/2005 4 - Hives Comments: uncertain CODEINE 06/15/2005 8 - GI Upset PENICILLINS 06/15/2005 2 - Rash ZITHROMAX Z-JULIET (AZITHROMYCIN) 06/15/2005 8 - GI Upset Comments: She can take this Date Reviewed: 11/07/2017 Reviewed by: Taylor Vazquez Ma - Fully Assessed Reason for Visit: Recheck [92] Cmt: 4 wk post injection, R 2nd IS Primary Visit Diagnosis:Neuroma [D36.10] Other Visit Diagnosis:Pain in joint involving right ankle and foot [M25.571] Order(s):XR FOOT GENERAL 3V AP/LAT/OBL RT [[id number]] Order #: [id number] FUTURE Prescriptions as of 11/07/2017 Sig: PREDNISONE 20 MG TABLET Prednisone 40 mg (2-20mg tabl* POTASSIUM CHLORIDE ER 10 MEQ * Take 1 capsule by mouth once * ERGOCALCIFEROL (VITAMIN D2) 5* Take 1 capsule by mouth once * UREA 40 % TOPICAL CREAM Apply 1 application to affect* CONJUGATED ESTROGENS 0.625 MG* Use 0.5 g vaginally once each* LORAZEPAM 0.5 MG TABLET Take 1 tablet by mouth three * LORATADINE 10 MG TABLET Take one(1) tablet daily as n* CONJUGATED ESTROGENS 0.625 MG* Use 1 g vaginally once daily. Problem List As Of Date 11/07/2017 Noted Resolved Osteopenia [M85.80] INVALID FOR* More... Constipation [K59.00] INVALID FOR* Donor for liver transplant [Z52.6] INVALID FOR* Abdominal adhesions [K66.0] INVALID FOR* Abdominal pain [R10.9] INVALID FOR* OA (osteoarthritis) [M19.90] INVALID FOR* Lumbar stenosis [M48.061] INVALID FOR* More... Low back pain radiating to left leg [M54.5] INVALID FOR* Overactive bladder [N32.81] INVALID FOR* Ganglion cyst of finger of right hand [M67.441] INVALID FOR* Other instructions from your clinician: Xray today Our office will call you with the results Follow-up and Disposition History Recorded Encounter Status:Closed by DIANNA MILLARD DPM on 11/07/17 XR CHEST 2V FRONTAL/LAT Observed: 11/03/2017 Status: F Source: [place] 1:46 PM [facility] REPOSITORY * * *Final Report* * * DATE OF EXAM: Nov 03 2017 1:46PM WOX [id number] - XR CHEST 2V FRONTAL/LAT / PROCEDURE REASON: Cough * * * * Physician Interpretation * * * * EXAMINATION: CHEST RADIOGRAPH (2 VIEW FRONTAL and LATERAL) Clinical History: Cough MQ: XC2_4 Comparison: Chest x-ray 10/20/2016 RESULT: Lines, tubes, and devices: None. Lungs and pleura: No consolidation. No lung mass. No pleural effusion. Cardiomediastinal silhouette: Normal cardiomediastinal silhouette. Other: IMPRESSION: No acute radiographic abnormality. Oceanographer Physical: SINDHU Transcribe Date/Time: Nov 03 2017 1:49P Dictated by : LIDIA VEGA MD This examination was interpreted and the report reviewed and electronically signed by: LIDIA VEGA MD on Nov 03 2017 1:50PM EST [id number] PROGRESS Observed: 11/03/2017 Status: COMPLETED Source: [place] 1:36 PM [facility] REPOSITORY HNO ID: [id number] Author: Linda SuttonRt) Cris Casper Service: (none) Author Type: Calculus Tutor Type: Progress Notes Filed: 11/03/2017 1:42 PM Note Text: Radiology Service Progress Note PATIENT NAME: Nic Cates DATE OF SERVICE: November 03, 2017 TIME: 1:36 PM PATIENT IDENTITY VERIFICATION COMPLETED USING TWO (2) METHODS: Patient confirmed name verbally and Date of . PATIENT GENDER DATA: Female. status: : No status: NO. PATIENT RELEVANT IMPLANT DATA REVIEWED: Not Applicable RADIOLOGY DEPARTMENT: General X-ray: Exam(s) Completed: Chest X-Ray PERIPHERAL IV DATA: Not applicable SIGNED BY: RT Efren November 03, 2017 1:36 PM PROGRESS Observed: 11/03/2017 Status: COMPLETED Source: [place] 1:22 PM [facility] REPOSITORY HNO ID: [id number] Author: Haydee Casanova Service: (none) Author Type: Nurse Practitioner Type: Progress Notes Filed: 11/03/2017 1:56 PM Note Text: Subjective Patient is a 62 year old female presenting with cough. The history is provided by the patient. No spiral gear generator was used. Cough Associated symptoms include ear pain, shortness of breath and wheezing. Pertinent negatives include no chest pain, no chills, no headaches, no sore throat and no myalgias. HPI Nic Cates is a 62 year old female who presents today for CC of cough and chest congestion This started 10 days ago She is also having productive cough Symptoms are worsened by lying down. She has tried mucinex with short term relief. Risk factors grandchildren ill. PMH pneumonia in 70's. Non smoker BP 122/82 Pulse 65 Temp 36.7 ?C (98 ?F) (Tympanic) Resp 22 Wt 56.2 kg (124 lb) LMP 01/30/2006 SpO2 99% BMI 21.97 kg/m2 ALLERGIES Allergen Reactions - Amoxil [Amoxicillin] Hives uncertain - Codeine GI Upset - Penicillins Rash - Zithromax Z-Juliet [Az* GI Upset She can take this ACTIVE PROBLEM LIST Osteopenia Constipation Donor for Liver Transplant Abdominal Adhesions Abdominal Pain Oa (Osteoarthritis) Lumbar Stenosis Low Back Pain Radiating to Left Leg Overactive Bladder Ganglion Cyst of Finger of Right Hand Family History Problem Relation Age of Onset - Prostate Cancer Father HTN - Diabetes Mother borderline - Skin Cancer [OTHER] Mother HTN - Hypertension Brother - HIV [OTHER] Brother cancer related - Hypertension Sister also endometriosis - depression [OTHER] Sister also anxiety - Anxiety [OTHER] Sister Social History Marital status: Spouse name: Years of education: Number of children: 2 Occupational History 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 Negative for chills, fever and malaise/fatigue. HENT: Positive for congestion (chest) and ear pain. Negative for sinus pain and sore throat. Respiratory: Positive for cough, shortness of breath and wheezing. Negative for sputum production. Cardiovascular: Negative for chest pain. Musculoskeletal: Negative for myalgias. Skin: Negative for rash. Neurological: Negative for headaches. Objective Physical Exam Constitutional: She is well-developed, well-nourished, and in no distress. HENT: Head: Normocephalic and atraumatic. Right Ear: Tympanic membrane, external ear and ear canal normal. Tympanic membrane is not injected, not erythematous, not retracted and not bulging. No middle ear effusion. Left Ear: Tympanic membrane, external ear and ear canal normal. Tympanic membrane is not injected, not erythematous, not retracted and not bulging. No middle ear effusion. Nose: Mucosal edema and rhinorrhea present. Right sinus exhibits no maxillary sinus tenderness and no frontal sinus tenderness. Left sinus exhibits no maxillary sinus tenderness and no frontal sinus tenderness. Mouth/Throat: Uvula is midline and mucous membranes are normal. Posterior oropharyngeal edema and posterior oropharyngeal erythema present. No oropharyngeal exudate or tonsillar abscesses. Eyes: Conjunctivae and EOM are normal. Pupils are equal, round, and reactive to light. Neck: Normal range of motion. Cardiovascular: Normal rate, regular rhythm and normal heart sounds. Pulmonary/Chest: Effort normal. No respiratory distress. She has wheezes. She has no rhonchi. She has rales. Lymphadenopathy: Head (right side): No submental, no submandibular, no tonsillar, no preauricular and no posterior auricular adenopathy present. Head (left side): No submental, no submandibular, no tonsillar, no preauricular and no posterior auricular adenopathy present. She has no cervical adenopathy. Right cervical: No posterior cervical adenopathy present. Left cervical: No posterior cervical adenopathy present. Right: No supraclavicular adenopathy present. Left: No supraclavicular adenopathy present. Skin: Skin is warm and dry. Psychiatric: Affect normal. Nursing note and vitals reviewed. ASSESSMENT/PLAN: 1. Cough - ICD9: 786.2, ICD10: R05 Rest, oral fluids, tylenol or motrin as needed for pain or fever See your doctor if not improving Seek emergency room care for worsening symptoms or condition changes Prednisone for airway congestion/wheezing/coughing - Discussed use of Prednisone 5 day course as needed for cough, wheeze, shortness of breath * Prednisone 40 mg (2 tablets) per day for 5 days, take in morning or early in day * Do not NSAIDs during this 5 day course (ibuprofen, naproxen, Motrin, Aleve, Advil) Tylenol only during prednisone use * Follow up with primary care provider if no improvement with treatment * Seek medical care immediately, call 911, go to ER if you have chest pain, difficulty breathing, shortness of breath, inability to swallow. Will call with CXR results - patient notified - XR CHEST 2V FRONTAL/LAT - interpreted by Lidia Vega MD IMPRESSION: No acute radiographic abnormality. RESULT: Lines, tubes, and devices: ?None. Lungs and pleura: ?No consolidation. No lung mass. No pleural effusion. Cardiomediastinal silhouette: ?Normal cardiomediastinal silhouette. Diagnosis and treatment plan were discussed and questions were answered to the patient's satisfaction. Pt acknowledged understanding of concepts and follow up plan. Specific signs and symptoms that would indicate the need for higher level of care were discussed in detail warranting prompt ER evaluation. Haydee Casanova CNP CNOV Observed: 11/03/2017 Status: COMPLETED Source: [place] 1:00 PM [facility] REPOSITORY Office Visit ([facility]) NIC CATES ([id number]) 1955 F Date Time Provider Department 11/03/17 1:00 PM HAYDEE CASANOVA (IVÁN) [facility]STR During your visit today, we recorded the following information about you: Temperature Pulse Respiration Blood pressure 98 degrees 65/minute 22/minute 122/82 Weight 56.2 kg Haydee Casanova CNP 11/03/2017 1:56 PM Signed Subjective Patient is a 62 year old female presenting with cough. The history is provided by the patient. No spiral gear generator was used. Cough Associated symptoms include ear pain, shortness of breath and wheezing. Pertinent negatives include no chest pain, no chills, no headaches, no sore throat and no myalgias. HPI Nic Cates is a 62 year old female who presents today for CC of cough and chest congestion This started 10 days ago She is also having productive cough Symptoms are worsened by lying down. She has tried mucinex with short term relief. Risk factors grandchildren ill. PMH pneumonia in 70's. Non smoker BP 122/82 Pulse 65 Temp 36.7 ?C (98 ?F) (Tympanic) Resp 22 Wt 56.2 kg (124 lb) LMP 01/30/2006 SpO2 99% BMI 21.97 kg/m2 ALLERGIES Allergen Reactions - Amoxil [Amoxicillin] Hives uncertain - Codeine GI Upset - Penicillins Rash - Zithromax Z-Juliet [Az* GI Upset She can take this ACTIVE PROBLEM LIST Osteopenia Constipation Donor for Liver Transplant Abdominal Adhesions Abdominal Pain Oa (Osteoarthritis) Lumbar Stenosis Low Back Pain Radiating to Left Leg Overactive Bladder Ganglion Cyst of Finger of Right Hand Family History Problem Relation Age of Onset - Prostate Cancer Father HTN - Diabetes Mother borderline - Skin Cancer [OTHER] Mother HTN - Hypertension Brother - HIV [OTHER] Brother cancer related - Hypertension Sister also endometriosis - depression [OTHER] Sister also anxiety - Anxiety [OTHER] Sister Social History Marital status: Spouse name: Years of education: Number of children: 2 Occupational History Occupation Employer Comment [employer]* 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 Negative for chills, fever and malaise/fatigue. HENT: Positive for congestion (chest) and ear pain. Negative for sinus pain and sore throat. Respiratory: Positive for cough, shortness of breath and wheezing. Negative for sputum production. Cardiovascular: Negative for chest pain. Musculoskeletal: Negative for myalgias. Skin: Negative for rash. Neurological: Negative for headaches. Objective Physical Exam Constitutional: She is well-developed, well-nourished, and in no distress. HENT: Head: Normocephalic and atraumatic. Right Ear: Tympanic membrane, external ear and ear canal normal. Tympanic membrane is not injected, not erythematous, not retracted and not bulging. No middle ear effusion. Left Ear: Tympanic membrane, external ear and ear canal normal. Tympanic membrane is not injected, not erythematous, not retracted and not bulging. No middle ear effusion. Nose: Mucosal edema and rhinorrhea present. Right sinus exhibits no maxillary sinus tenderness and no frontal sinus tenderness. Left sinus exhibits no maxillary sinus tenderness and no frontal sinus tenderness. Mouth/Throat: Uvula is midline and mucous membranes are normal. Posterior oropharyngeal edema and posterior oropharyngeal erythema present. No oropharyngeal exudate or tonsillar abscesses. Eyes: Conjunctivae and EOM are normal. Pupils are equal, round, and reactive to light. Neck: Normal range of motion. Cardiovascular: Normal rate, regular rhythm and normal heart sounds. Pulmonary/Chest: Effort normal. No respiratory distress. She has wheezes. She has no rhonchi. She has rales. Lymphadenopathy: Head (right side): No submental, no submandibular, no tonsillar, no preauricular and no posterior auricular adenopathy present. Head (left side): No submental, no submandibular, no tonsillar, no preauricular and no posterior auricular adenopathy present. She has no cervical adenopathy. Right cervical: No posterior cervical adenopathy present. Left cervical: No posterior cervical adenopathy present. Right: No supraclavicular adenopathy present. Left: No supraclavicular adenopathy present. Skin: Skin is warm and dry. Psychiatric: Affect normal. Nursing note and vitals reviewed. ASSESSMENT/PLAN: 1. Cough - ICD9: 786.2, ICD10: R05 Rest, oral fluids, tylenol or motrin as needed for pain or fever See your doctor if not improving Seek emergency room care for worsening symptoms or condition changes Prednisone for airway congestion/wheezing/coughing - Discussed use of Prednisone 5 day course as needed for cough, wheeze, shortness of breath * Prednisone 40 mg (2 tablets) per day for 5 days, take in morning or early in day * Do not NSAIDs during this 5 day course (ibuprofen, naproxen, Motrin, Aleve, Advil) Tylenol only during prednisone use * Follow up with primary care provider if no improvement with treatment * Seek medical care immediately, call 911, go to ER if you have chest pain, difficulty breathing, shortness of breath, inability to swallow. Will call with CXR results - patient notified - XR CHEST 2V FRONTAL/LAT - interpreted by Lidia Vega MD IMPRESSION: No acute radiographic abnormality. RESULT: Lines, tubes, and devices: ?None. Lungs and pleura: ?No consolidation. No lung mass. No pleural effusion. Cardiomediastinal silhouette: ?Normal cardiomediastinal silhouette. Diagnosis and treatment plan were discussed and questions were answered to the patient's satisfaction. Pt acknowledged understanding of concepts and follow up plan. Specific signs and symptoms that would indicate the need for higher level of care were discussed in detail warranting prompt ER evaluation. IVÁN Ngo CNP 11/03/2017 1:44 PM Signed ASSESSMENT/PLAN: 1. Cough - ICD9: 786.2, ICD10: R05 Rest, oral fluids, tylenol or motrin as needed for pain or fever See your doctor if not improving Seek emergency room care for worsening symptoms or condition changes Prednisone for airway congestion/wheezing/coughing - Discussed use of Prednisone 5 day course as needed for cough, wheeze, shortness of breath * Prednisone 40 mg (2 tablets) per day for 5 days, take in morning or early in day * Do not NSAIDs during this 5 day course (ibuprofen, naproxen, Motrin, Aleve, Advil) Tylenol only during prednisone use * Follow up with primary care provider if no improvement with treatment * Seek medical care immediately, call 911, go to ER if you have chest pain, difficulty breathing, shortness of breath, inability to swallow. Will call with CXR results. - XR CHEST 2V FRONTAL/LAT Referring Provider: SELF [[id number]] Allergies As of Date: 11/03/2017 Noted Allergy Reaction AMOXIL (AMOXICILLIN) 05/10/2005 4 - Hives Comments: uncertain CODEINE 06/15/2005 8 - GI Upset PENICILLINS 06/15/2005 2 - Rash ZITHROMAX Z-JULIET (AZITHROMYCIN) 06/15/2005 8 - GI Upset Comments: She can take this Date Reviewed: 11/03/2017 [facility]ed [facility]: [facility] [place] - Fully Assessed Reason for Visit: Cough [28] Cmt: with congestion X 10 day Primary Visit Diagnosis:Cough [R05] Order(s):XR CHEST 2V FRONTAL/LAT [1624023] Order #: [id number]. #:[id number] predniSONE (DELTASONE) 20 mg tabletPrednisone 40 mg (2-20mg tablets) po QD for 5 daysDisp: 10 tabletRfl: 0 Prescriptions as of 11/03/2017 Sig: PREDNISONE 20 MG TABLET Prednisone 40 mg (2-20mg tabl* POTASSIUM CHLORIDE ER 10 MEQ * Take 1 capsule by mouth once * ERGOCALCIFEROL (VITAMIN D2) 5* Take 1 capsule by mouth once * UREA 40 % TOPICAL CREAM Apply 1 application to affect* CONJUGATED ESTROGENS 0.625 MG* Use 0.5 g vaginally once each* LORAZEPAM 0.5 MG TABLET Take 1 tablet by mouth three * CONJUGATED ESTROGENS 0.625 MG* Use 1 g vaginally once daily. LORATADINE 10 MG TABLET Take one(1) tablet daily as n* Problem List As Of Date 11/03/2017 Noted Resolved Osteopenia [M85.80] INVALID FOR* More... Constipation [K59.00] INVALID FOR* Donor for liver transplant [Z52.6] INVALID FOR* Abdominal adhesions [K66.0] INVALID FOR* Abdominal pain [R10.9] INVALID FOR* OA (osteoarthritis) [M19.90] INVALID FOR* Lumbar stenosis [M48.061] INVALID FOR* More... Low back pain radiating to left leg [M54.5] INVALID FOR* Overactive bladder [N32.81] INVALID FOR* Ganglion cyst of finger of right hand [M67.441] INVALID FOR* Other instructions from your clinician: ASSESSMENT/PLAN: 1. Cough - ICD9: 786.2, ICD10: R05 Rest, oral fluids, tylenol or motrin as needed for pain or fever See your doctor if not improving Seek emergency room care for worsening symptoms or condition changes Prednisone for airway congestion/wheezing/coughing - Discussed use of Prednisone 5 day course as needed for cough, wheeze, shortness of breath * Prednisone 40 mg (2 tablets) per day for 5 days, take in morning or early in day * Do not NSAIDs during this 5 day course (ibuprofen, naproxen, Motrin, Aleve, Advil) Tylenol only during prednisone use * Follow up with primary care provider if no improvement with treatment * Seek medical care immediately, call 911, go to ER if you have chest pain, difficulty breathing, shortness of breath, inability to swallow. Will call with CXR results. - XR CHEST 2V FRONTAL/LAT Prescriptions ordered this encounter Disp Refills Start End PREDNISONE 20 MG TABLET 10 t* 0 11/03/2017 Sig: Prednisone 40 mg (2-20mg tablets) po QD for 5 days Medications Discontinued During This Encounter methylPREDNISolone (MEDROL, JULIET,) 4 * 1 Pa* 0 03/29/2017 11/03/2017 Sig: Take as directed Disc: Course of therapy completed Encounter Status:Closed by HAYDEE CASANOVA CNP on 11/03/17 CNCO Observed: 10/25/2017 Status: COMPLETED Source: [place] 2:45 PM [facility] REPOSITORY HNO ID: [id number] Author: Mammography Coordinator Service: (none) Author Type: Physician Type: Letter Filed: 10/29/2017 11:32 PM Note Text: October 25, 2017 PID: [id number] Nic Cates [address] [place] [address] Dear Ms. Cates, We are pleased to inform you that the results of your recent breast imaging exam on 10/25/2017 are normal. Your mammogram demonstrates that you have dense breast tissue, which could hide abnormalities. Dense breast tissue, in and of itself, is a relatively common condition. Therefore, this information is not provided to cause undue concern; rather, it is to raise your awareness and promote discussion with your health care provider regarding the presence of dense breast tissue in addition to other risk factors. Early detection of cancer is very important. We also understand recommendations regarding breast cancer screening are controversial. Please discuss with your primary care provider which strategy is best for you and whether a mammogram is right for you. Your imaging studies and report will be kept on file at [facility] as part of your permanent medical record and are available for your continuing care. Thank you for allowing us to help in meeting your health care needs. Sincerely, Dr. Jones Interpreting Radiologist [facility] (Normal over 40) [facility] SCREENING Observed: 10/25/2017 Status: F Source: [place] 2:41 PM [facility] REPOSITORY * * *Final Report* * * DATE OF EXAM: Oct 25 2017 2:41PM [facility] 0581 - [facility] SCREENING / PROCEDURE REASON: Encounter for screening mammogram for malignant neoplasm of breast * * * * Physician Interpretation * * * * RESULT: #[id number] - [facility] SCREENING BILATERAL DIGITAL SCREENING MAMMOGRAM WITH CAD: 10/25/2017 HISTORY: Encounter For Screening Mammogram For Malignant Neoplasm Of Breast /Screening Mammogram - patient reports NO breast symptoms /Priors available for comparison. RESULT: TECHNIQUE: The study was acquired using full field digital technology and interpreted from soft copy. Current study was also evaluated with a Computer Aided Detection (CAD). Comparison is made to exams dated: 08/11/2016 mammogram, 12/29/2014 mammogram, and 01/27/2013 mammogram - [facility]. The tissue of both breasts is heterogeneously dense. This may lower the sensitivity of mammography. No significant masses, calcifications, or other findings are seen in either breast. There has been no significant interval change. IMPRESSION: NEGATIVE There is no mammographic evidence of malignancy. A 1 year screening mammogram is recommended. Kayleigh Jones M.D. pt/penrad:10/25/2017 14:45:11 Shift Manager: Marcy CASTANEDA)(Dyaln), [facility] letter sent: Normal over 40 Mammogram BI-RADS: 1 Negative Oceanographer Physical: Efren Transcribe Date/Time: Oct 25 2017 2:21P Dictated by: KAYLEIGH JONES MD This examination was interpreted and the report reviewed and electronically signed by: KAYLEIGH JONES MD on Oct 25 2017 2:45PM EST [id number] BASIC METABOLIC PANL Collected: 10/23/2017 Status: F Source: [place] 1:04 PM [facility] REPOSITORY TYPE CODE TESTS RESULT OUT OF REFERENCE UNITS RANGE LAB GLU 74-99 mg/dL Glucose 79 Result Comment: The [place] Diabetes Association (ADA) provides guidance for cutoff values for fasting glucose and random glucose. The ADA defines fasting as no caloric intake for at least 8 hours. Fas ting plasma glucose results between 100 to 125 mg/dL indicate increased risk for diabetes (prediabetes). Fasting plasma glucose results greater than or equal to 126 mg/dL meet the criteria for diagnosis of diabetes. In the absence of unequivocal hyperglycemia, results should be confirmed by repeat testing. In a patient with classic symptoms of hyperglycemia or hyperglycemic crisis, random plasma glucose results greater than or equal to 200 mg/dL meet the criteria for diagnosis of diabetes. Reference: Standards of Medical Care in Diabetes 2016, [place] Diabetes Association. Diabetes Care. 2016.39(Suppl 1). LAB BUN 7-21 mg/dL BUN 13 LAB CRET 0.58-0.96 mg/dL Creatinine 0.63 LAB NA 136-144 mmol/L Sodium 138 LAB K 3.7-5.1 mmol/L Potassium Low 3.6 LAB CL 97-105 mmol/L Chloride 99 LAB CO2 22-30 mmol/L CO2 26 LAB AGAP 9-18 mmol/L Anion Gap 13 LAB CA 8.5-10.2 mg/dL Calcium, Total 9.0 LAB GFRAA eGFR- Amer. >60 LAB GFRNAA . eGFR-All Other Races >60 Result Comment: eGFR (Estimated GFR) Units of measure: mL/min/1.73 meters squared eGFR is derived from the reexpressed MDRD Study equation using the following parameters: serum creatinine, age, gender and race. The creatinine assay has been calibrated to be traceable to IDMS. An eGFR <60 mL/min/1.73m2 for >3 months is consistent with chronic kidney disease. Refer to KDOQI guidelines for clinical interpretation. In patients with unstable renal function, e.g. those with acute kidney injury, the eGFR may not accurately reflect actual GFR. Performed By: #### BMP, LIPB #### [facility] [address] [place], [place] [address] LIPID PANEL, BASIC Collected: 10/23/2017 Status: F Source: [place] 1:04 PM [facility] REPOSITORY TYPE CODE TESTS RESULT OUT OF REFERENCE UNITS RANGE LAB CHOL <200 mg/dL Cholesterol 184 Result Comment: <200 mg/dL, Desirable 200-239 mg/dL, Borderline high >239 mg/dL, High LAB TRIGLY <150 mg/dL Triglyceride 47 Result Comment: <150 mg/dL, Normal 150-199 mg/dL, Borderline high 200-499 mg/dL, High >499 mg/dL, Very high LAB HDL >39 mg/dL HDL-Cholesterol 79 Result Comment: 40-59 mg/dL, Acceptable >59 mg/dL, High: Negative risk factor for coronary heart disease <40 mg/dL, Low: Positive risk factor for coronary heart disease LAB LDL <100 mg/dL LDL-Cholesterol 96 Result Comment: <100 mg/dL, Optimal 100-129 mg/dL, Near optimal/above optimal 130-159 mg/dL, Borderline high 160-189 mg/dL, High >189 mg/dL, Very high Secondary prevention optimal LDL Cholesterol levels are recommended to be < 70 mg/dL LAB NONHDL <130 mg/dL Non HDL Cholesterol 105 Result Comment: <130 mg/dL, Optimal 130-159 mg/dL, Near optimal/above optimal 160-189 mg/dL, Borderline high 190-219 mg/dL, High >219 mg/dL, Very high Secondary prevention optimal non HDL Cholesterol levels are recommended to be < 100 mg/dL LAB FT hrs Fasting Time 15 LAB VLDL <30 mg/dL VLDL Cholesterol 9 LAB TCHDL <5.10 TC:HDL Ratio 2.33 LAB LDLHDL <2.54 LDL:HDL Ratio 1.22 Result Comment: Reference: 1. National Cholesterol Education Program ATP III Guideline At-A-Glance Quick Desk Reference: National Heart, Lung, and Blood [place]. National Institutes of Health. 2001: NIH Publication No. 01-3305. 2. An International Atherosclerosis Society position paper: global recommendations for the management of dyslipidemia: executive summary, Atherosclerosis. 2014: 232(2):410-413. Performed By: #### BMP, LIPB #### [place] [facility] [address] [place], [place] [address] PROGRESS Observed: 10/22/2017 Status: COMPLETED Source: [place] 3:59 PM [facility] REPOSITORY HNO ID: [id number] Author: Sandrine Judd Service: (none) Author Type: Physician Type: Progress Notes Filed: 10/22/2017 5:14 PM Note Text: Reason for Visit Patient presents with: Established Patient: 6 month follow up Nic Cates is a 62 year old female who presents here today for Above Complaints.. Health Maintenance HEPATITIS C SCREENING MAMMOGRAM HPI Got an injury to the eyelid from a hook that she did not see on the bird feeder. 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 Needs to see hand surgeon again. Also seen the foot doctor since she last saw me who gave her a shot but It did not help her much and was painful notes that she is not going to have a foot injection again. No problem-specific Assessment AND Plan notes found for this encounter. PAST MEDICAL HISTORY Diagnosis Date - Internal hemorrhoids without mention of complication - Intestinal infection due to Clostridium difficile 2007 - PMH - PAST MEDICAL HISTORY OF vertigo - PMH - PAST MEDICAL HISTORY OF prolapsed bladder - Unspecified constipation PAST SURGICAL HISTORY Procedure Laterality Date - COLONOSCOP W/ OR W/O [facility] SPEC 09/25/05 - COLONOSCOP W/ OR W/O [facility] SPEC 05/01/2013 Colonoscopy - DANDC, DIAG AND/OR THERAPEUTIC 12/11/1988 Tubal - PAST SURGICAL HISTORY OF age 4 tonsils - PAST SURGICAL HISTORY OF age 2 head trama - PAST SURGICAL HISTORY OF 01/13/2009 donated portion liver, to her neice with liver cancer - PAST SURGICAL HISTORY OF 10/25/2009 bladder repair sling - REPAIR BLADDER WOUND/INJ,COMPLIC 05/2008 [facility] - SALPINGECTOMY 12/25/1988 right tubal ectopic - TOTAL ABDOM HYSTERECTOMY 05/2008 [facility] bilat.salpingo-oophorectomy FAMILY HISTORY Problem Relation Age of Onset - Prostate Cancer Father HTN - Diabetes Mother borderline - Skin Cancer [OTHER] Mother HTN - Hypertension Brother - HIV [OTHER] Brother cancer related - Hypertension Sister also endometriosis - depression [OTHER] Sister also anxiety - Anxiety [OTHER] Sister Social History Substance Use Topics - Smoking status: Former Smoker - Smokeless tobacco: Never Used Comment: Only smoked in her early 20's x 2-3 years - Alcohol use Yes Comment: Seldom Past medical history, appointments, medications, allergies reviewed. Pertinent Lab/Diagnostic Studies are reviewed and discussed today Current Outpatient Prescriptions: - urea (CARMOL) 40 % crea - methylPREDNISolone (MEDROL, JULIET,) 4 mg Dose-Pack - conjugated estrogens (PREMARIN) vaginal cream - LORazepam (ATIVAN) 0.5 mg tab - ergocalciferol, vitamin D2, (VITAMIN D) 50,000 unit capsule - conjugated estrogens (PREMARIN) vaginal cream - loratadine (CLARITIN) 10 mg ORAL tablet Review of Systems CONSTITUTIONAL: No fevers, chills night sweats, unintended weight loss CARDIOVASCULAR: No chest pain, dyspnea, palpitations, orthopnea, PND, ankle edema. PULM: No dyspnea, unexplained cough. GI: No dysphagia/odynophagia, problematic reflux, constipation, diarrhea, changes in stool habits, hematochezia, melena. : No new urinary complaints, including dysuria, gross hematuria or pyuria. NEURO: No new balance problems, peripheral weakness/paresthesias or numbness of concern. Physical Exam BP 114/68 (BP Site: Left Arm, BP Position: Sitting, BP Cuff Size: Regular Adult) Pulse 78 Resp 12 Ht 160 cm (5' 3) Wt 56.7 kg (125 lb) LMP 01/30/2006 SpO2 99% BMI 22.14 kg/m2 General appearance: Well appearing, alert, in no acute distress, well nourished. Skin: Skin color, texture, turgor normal, no suspicious rashes or lesions Head: Normocephalic, no masses, lesions, tenderness or abnormalities Eyes: Anicteric sclera. Pupils are equally round and reactive to light. Extraocular movements are intact. Lungs: Lungs clear to auscultation. No wheezing, rhonchi, rales Heart: RRR without murmur, gallop, or rubs. ASSESSMENT/PLAN: 1. Spinal stenosis of lumbar region, unspecified whether neurogenic claudication present - ICD9: 724.02, ICD10: M48.061 (primary diagnosis) Mechanical low back pain - Bedrest for 2-3 days 2. Screening mammogram, encounter for - ICD9: V76.12, ICD10: Z12.31 - Encouraged monthly BSE - Follow up for annual exam in one year. - [place] SCREENING 3. Mixed hyperlipidemia - ICD9: 272.2, ICD10: E78.2 - good control - Continue current medication. - LIPID PANEL BASIC - BASIC METABOLIC PNL 4. Encounter for screening examination for impaired glucose regulation and diabetes mellitus - ICD9: V77.1, ICD10: Z13.1 CMp SANDRINE JUDD MD PROGRESS Observed: 10/10/2017 Status: COMPLETED Source: [place] 10:21 AM [facility] REPOSITORY HNO ID: [id number] Author: Dianna Antoinette Service: (none) Author Type: Physician Type: Progress Notes Filed: 10/11/2017 7:10 AM Note Text: Follow up podiatric office visit for: Chief Complaint: This 62 year old who presents for follow up:neuroma of right 2nd interspace. Patient has chronic pain to right 2nd interspace. She has been wearing shoes with padding but still has pain. She states the pain is worse when she is barefoot. She would like to have injection today. Patient also complains of dryness to left heel that is just as painful as the neuroma. PAIN EVALUATION 10/10/2017 Pain Score: 8 Pain Location: Foot-Right Description: Aching Duration Amount of Time: 8 Duration Units: Months Frequency: / Intervention: Relaxation;Other: See comment supportive shoes No results found for: HBA1C PCP: SANDRINE JUDD MD PAST MEDICAL HISTORY Diagnosis Date - Internal hemorrhoids without mention of complication - Intestinal infection due to Clostridium difficile 2007 - PMH - PAST MEDICAL HISTORY OF vertigo - PMH - PAST MEDICAL HISTORY OF prolapsed bladder - Unspecified constipation Current Outpatient Prescriptions: conjugated estrogens (PREMARIN) vaginal cream Use 0.5 g vaginally once each week. LORazepam (ATIVAN) 0.5 mg tab Take 1 tablet by mouth three times daily as needed. ergocalciferol, vitamin D2, (VITAMIN D) 50,000 unit capsule Take 1 capsule by mouth once each week. TAKE ON MONDAYS loratadine (CLARITIN) 10 mg ORAL tablet Take one(1) tablet daily as needed for allergy symptoms. methylPREDNISolone (MEDROL, JULIET,) 4 mg Dose-Pack Take as directed conjugated estrogens (PREMARIN) vaginal cream Use 1 g vaginally once daily. No current facility-administered medications for this visit. ALLERGIES Allergen Reactions - Amoxil [Amoxicillin] Hives uncertain - Codeine GI Upset - Penicillins Rash - Zithromax Z-Juliet [Az* GI Upset She can take this PAST SURGICAL HISTORY Procedure Laterality Date - COLONOSCOP W/ OR W/O [facility] SPEC 09/25/05 - COLONOSCOP W/ OR W/O [facility] SPEC 05/01/2013 Colonoscopy - DANDC, DIAG AND/OR THERAPEUTIC 12/11/1988 Tubal - PAST SURGICAL HISTORY OF age 4 tonsils - PAST SURGICAL HISTORY OF age 2 head trama - PAST SURGICAL HISTORY OF 01/13/2009 donated portion liver, to her neice with liver cancer - PAST SURGICAL HISTORY OF 10/25/2009 bladder repair sling - REPAIR BLADDER WOUND/INJ,COMPLIC 05/2008 [facility] - SALPINGECTOMY 12/25/1988 right tubal ectopic - TOTAL ABDOM HYSTERECTOMY 05/2008 [facility] bilat.salpingo-oophorectomy Physical Exam: Constitutional: Pt is a well developed 62 year old female who is alert, oriented, cooperative and in no apparent distress. OBJECTIVE: NVSI unchanged from previous visit. Dermatological: Nails 1-5 b/l are normal. Webspaces clean and dry 1-4 b/l. Skin appears dy and scaly to b/l heels with fissuring. good color, texture, turgor. No open lesions present. No callosities present. Musculoskeletal/Orthopaedic: Patient has pain to palpation of right 2nd interspace Palpable click noted to right 2nd interspae. ASSESSMENT: (G57.61) Neuroma digital nerve, right (primary encounter diagnosis) (L85.3) Xerosis cutis PLAN: 1. History and physical examination completed today. 2. Discussed pain of right foot. She has tried padding and wider shoes. She is now interested in injection. Discussed r/b/a to injection. She elected to proceed 3. Discussed dryness of b/l heels. Recommend use of lotion to feet. carmol 40 was prescribed. Patient elected to proceed with an injection to the right 2nd interspace today. The risks, benefits, potential complications, personnel present, and alternatives to this were discsussed. Pt elected to proceed. all questions were answered. no guarantees were given. A timeout was performed. patient properly identified. procedure site marked. Under aseptic technique an injection was performed to the right 2nd interspace using a mixture of ? cc of 0.5 % Marcaine plain, ? of kenalog and ? cc of dexamethazone Dianna Millard DPM URGENT CARE VISIT Observed: 09/03/2017 Status: F Source: [place] RE[place] 2:17 PM [facility] REPOSITORY [facility] [address] [place] [address] [address] [place] [address] OFFICE VISIT Date of Service: 09/03/17 MR#: [id number] Acct: [id number] Name: NIC CATES Rep #: [id number] : 1955 Provider: Zafar IYER Age/Sex: 62/F Location: [facility] Status: Signed Intake Vital Signs09/03/17 Height 5 ft 3 in Intake Visit Reasons: PRE EMPLOY PHYSICAL/CORIE Is patient in pain?: No Allergies amoxicillin Allergy (Verified 09/03/17 14:03) Unknown codeine Allergy (Verified 09/03/17 14:03) Unknown Medications cholecalciferol (vitamin D3) 1,000 unit capsule 1,000 unit PO ONCE 09/03/17 [History Confirmed 09/03/17] loratadine 10 mg tablet 10 mg PO QDAY 09/03/17 [History Confirmed 09/03/17] [facility] Medical History Physical exam, pre-employment (Acute) Head injury (Acute) Liver donor (Acute) Seasonal allergies (Acute) Surgical History History of bladder surgery (Acute) History of hysterectomy (Acute) History of tonsillectomy (Acute) Social History Smoking Status: Never smoker alcohol intake: current alcohol intake frequency: a few times a month HPI PRE EMPLOY PHYSICAL/CORIE: Details: NIC CATES, is a 62 F who presents to the office today for Office Procedures Physical Exam Coding PE Coding Sports/School Physical: No DOT PE: No Pre-employment PE: Yes Assessment AND Plan Problems 1. Physical exam, pre-employment Z02.1 Plan see attached scanned documents dated 09/03/17 Coding Level of Care Code No Charge Diagnoses Physical exam, pre-employment Z02.1 Additional Codes PE Coding - Pre-employment PE: Yes (PREPE) 09/03/17 1417 <Electronically signed by Zafar IYER> Date Zafar IYER Cosigner Signature: Date (if applicable) CC: ALLERGIES ALLERGIES DATE TYPE / NAME / CODE REACTION SEVERITY SOURCE CODE 07/24/2018 Drug codeine/[id number](R Unknown Unknown [place] Allergy/41 XNORM) [facility] [id number]([facility]) Repository 07/24/2018 Drug amoxicillin/[id number] Unknown Unknown [place] Allergy/41 75(RXNORM) Community 9472911([facility]) Repository 07/24/2018 Drug Sulfa (Sulfonamide Rash Unknown [place] Allergy/41 Antibiotics)/[id number] [facility] [id number]([facility](RXNORM) [facility]) Repository 07/24/2018 Drug sulfamethoxazole/F00 Rash Unknown [place] Allergy/41 7704621(RXNORM) Community 5827035([facility]) Repository 07/24/2018 Drug nitrofurantoin/F0060 Shortness of Unknown [place] Allergy/41 56023(RXNORM) breath Community 8314678([facility]) Repository 07/24/2018 Drug trimethoprim/T554307 Rash Unknown [place] Allergy/41 873(RXNORM) Community 1469611([facility]) Repository 04/08/2018 DRUG/67533 SULFAMETHOXAZOLE-TRI HIVES [facility] 1003(SNOME METHOPRIM [place]) Repository 04/08/2018 DRUG/49206 NITROFURANTOIN OTHER: SEE C [facility] 1003(SNOME MONOHYD/M-CRYST [place]) Repository 06/15/2005 DRUG CODEINE GI UPSET [facility] INGREDI/[address] [place] [address]151551(SN Repository OMED CT) 06/15/2005 Drug PENICILLINS RASH [facility] Class/4195 Main [place] [address](SNOM Repository ED CT) 06/15/2005 DRUG AZITHROMYCIN GI UPSET [address] 8894053(SN Repository OMED CT) 05/10/2005 DRUG AMOXICILLIN HIVES [address] 6354511(SN Repository OMED CT) NG/1090144 AMOXICILLIN [facility] 06(SNOMED [facility]) Repository NG/7786212 SULFAMETHOXAZOLE-TRI [facility] 06(SNOMED METHOPRIM [facility]) Repository NG/5293004 CODEINE [facility] 06(SNOMED [facility]) Repository NG/8636884 NITROFURANTOIN [facility] 06(SNOMED MONOHYD/M-CRYST [facility]) Repository NG/6189466 PENICILLINS [facility] 06(SNOMED [facility]) Repository NG/9328793 AZITHROMYCIN [facility] 06(SNOMED [facility]) Repository ENCOUNTERS ENCOUNTERS ADMIT/DISCHARGE ACCOUNT NUMBER ADMITTING ENCOUNTER LOCATION SOURCE CLASS 08/07/2018 [id number] Ambulatory [facility] ding:PSN Repository 07/24/2018 [id number] Ambulatory [facility] ding:RAD Repository 07/24/2018/07/24/20 [id number] Ambulatory BMSBuilding: Elli 18 [facility] Repository 07/22/2018 [id number] Ambulatory BMSBuilding: [place] BMS.[facility] Repository 06/21/2018/06/21/20 [id number] Emergency [address] ding:ED Repository 06/21/2018/06/26/20 [id number] Ambulatory [address] Main [place] Repository 06/12/2018/06/12/20 [id number] Ambulatory [address] Main [place] Repository 06/10/2018 [id number] Ambulatory [facility] Other [place] Repository 06/10/2018/06/10/20 [id number] Ambulatory [place] [facility] [address] [place] [address] System MEDICAL Repository CENTERBuildi ng:AKLB 06/10/2018/06/10/20 [id number] Ambulatory [address] Other [place] Repository 06/10/2018/06/10/20 [id number] Ambulatory KAROLINE Alejo [address] MEDICAL Repository CENTERBuildi ng:URAE 06/02/2018/06/04/20 [id number] Ambulatory [facility] Main [place] Repository 05/01/2018/05/01/20 [id number] Ambulatory [facility] Main [place] Repository 04/24/2018/04/25/20 [id number] Ambulatory [facility] Main [place] Repository 03/27/2018/04/23/20 [id number] Ambulatory [facility] Main [place] Repository 11/09/2017/11/13/19 [id number] Ambulatory [facility] Main [place] Repository 11/07/2017/11/09/19 [id number] Ambulatory [facility] Main [place] Repository 11/07/2017/11/08/19 [id number] Ambulatory [facility] Main [place] Repository 11/07/2017/11/09/19 [id number] Ambulatory [facility] Main [place] Repository 11/03/2017/11/04/19 [id number] Ambulatory [facility] Main [place] Repository 11/03/2017/11/06/19 [id number] Ambulatory [facility] Main [place] Repository 10/25/2017/10/26/19 [id number] Ambulatory [facility] Main [place] Repository 10/23/2017/10/23/19 [id number] Ambulatory [facility] Main [place] Repository 10/22/2017/10/26/19 [id number] Ambulatory [facility] Main [place] Repository 10/10/2017/10/10/19 [id number] Ambulatory [facility] Main [place] Repository 09/03/2017/09/03/19 [id number] Ambulatory BMSBuilding: Elli Stanton [facility] Repository PAYERS PAYERS ENCOUNTER GUARANTOR PAYER SUBSCRIBER SOURCE 08/07/2018 NIC [id number] [facility] TINY: [facility] y [place]: [id number] [id number] Repository [address]Ehi: 330 Date:9755-53-06FO [phone] () [place], [place] [address]TD: 08/07/2018 Secondary NOT GIVENUNK Elli Insurance:SELF PAY [facility] Number: Effective Repository Date:2018-07-24 07/24/2018 NIC D Primary NIC D [place] [id number] Insurance:ANTHEMPolic WATKINSDOB: Community [address] y Number: [id number] [id number] Repository 14[address]Zkn: (330) Date:7739-06-04YJ [phone] () [place]374[address]JK, [place] [address]TI: 07/24/2018 Secondary NOT GIVENUNK [place] Insurance:SELF PAY [facility] Number: Effective Repository Date:2018-07-24 07/24/2018 NIC D Primary NIC D [place] [id number] Insurance:ANTHEMPolic WATKINSDOB: Community [address] y Number: [id number] [id number] Repository [address]Uft: (330) Date:0674-40-71PG [phone] () [place]07[place]QOM[place]IP, [place] [address]YT: 07/24/2018 Secondary NOT GIVENUNK [place] Insurance:SELF PAY [facility] Number: Effective Repository Date:2018-07-23 07/22/2018 NIC D Primary NIC D [place] [id number] Insurance:ANTHEMPolic WATKINSDOB: Community [address] y Number: [id number] [id number] Repository [address]15[address]Plg: (330) Date:9758-55-25ES [phone] () 200[place]FXWM[place], [place] [address]DC: 07/22/2018 Secondary NOT GIVENUNK [place] Insurance:SELF PAY [facility] Number: Effective Repository Date:2018-07-22 06/21/2018 NIC D Primary NIC D [place] [id number] Insurance:ANTHEMPolic WATKINSDOB: Community [address] y Number: [id number] [id number] Repository [address]Qgk: (330) Date:5515-32-55HW [phone] () 004[address]OXLEPRF, [place] [address]LR: 06/21/2018 Secondary NOT GIVENUNK [place] Insurance:SELF PAY [facility] Number: Effective Repository Date:2018-06-21 06/10/2018 NIC D [facility] [place] [facility] PPOPolicy Number: [id number] Repository [address] [id number] [place], [place] Date: [address]Tqc: () 06/10/2018 NIC D [facility] PPOPolicy Number: [id number] Repository [address] [id number] [place], [place] Date: [address]Hmh: () 09/03/2017 NIC D Primary NOT GIVENUNK [place] [id number] Insurance:SELF PAY [place] Number: Effective Repository [id number]: 330) Date:2017-09-03 [phone] ()
== END ==
PROVIDERS: Family Provider Internal Medicine; PCP Internal Medicine; Referring Provider Internal Medicine Cardiovascular Disease; Visit Provider Internal Medicine Cardiovascular Disease
DX: R06.00 Dyspnea, unspecified (principal); R00.2 Palpitations
CPT/HCPCS: 36415; 71046; 83880

== ENCOUNTER → 2018-08-07 10:58 | Outpatient (CLI) | payer BC, SELFPAY ==
[2018-07-24 08:18] VITALS: BMI 20.3
== END ==
PROVIDERS: Family Provider Internal Medicine; PCP Internal Medicine; Referring Provider Internal Medicine Cardiovascular Disease; Visit Provider Internal Medicine Cardiovascular Disease
DX: R00.2 Palpitations (principal); R06.00 Dyspnea, unspecified
CPT/HCPCS: 93225; 93226

== ENCOUNTER → 2018-10-16 17:27 | Outpatient (CLI) | payer BC, SELFPAY ==
[2018-09-04 08:36] VITALS: BMI 20.2
[2018-10-16 17:35] LABS: Red Blood Cells-Urine 0 SEEN /hpf (0-5)
[2018-10-16 17:49] LABS: Color, Urine Amber (Yellow); Glucose, Dipstick Normal (Normal); Ketone-Dipstick 5 mg/dl (Negative); Leukocyte Esterase-Dipstick 100 /ul (Negative); Nitrite-Dipstick Positive (Negative); Occult Blood-Urine Negative /ul (Negative); Protein-Dipstick 15 mg/dl (Negative); Specific Gravity, Urine 1.025 (1.002-1.030); Urine Bilirubin Dipstick Negative (Negative); Urine Clarity Clear (Clear); Urine Urobilinogen 4 mg/dl (Normal)
[2018-10-16 17:55] LABS: White Blood Cells 0-5 SEEN /hpf (0-5)
[2018-10-16 17:56] LABS: Bacteria RARE /hpf (None Seen); Mucous, Urine 1+ /hpf (<or=2+); Squamous Epithelial Cells - UA 0-5 SEEN /hpf (5-10)
[2018-10-16 18:08] LABS: Hematocrit 41.9 % (37-47); Hemoglobin 13.8 g/dl (12.0-15.0); Mean Corp Hgb Conc 32.9 g/gl (32-36); Mean Corpuscular Hgb 30.6 pg (27.0-32.0); Mean Corpuscular Volume 92.9 fL (81-99); Mean Platelet Vol. 10.1 fl (6.2-12.0); Platelet Count 150 K/mm3 (150-450); RBC Distribution Width CV 12.8 % (11.6-14.6); RBC Distribution Width SD 42.7 fl (35.1-43.9); Red Blood Count 4.51 M/mm3 (4.2-5.4); White Blood Count 12.9 K/mm3 (4.4-11.0)
[2018-10-16 18:09] LABS: Scan Indicated on CBC? Y/N NO
[2018-10-16 18:11] LABS: ALB/GLOB Ratio 1.2 RATIO (0.9-2.4); AST(SGOT) 23 U/L (15-37); Alanine Aminotransfer ALT/SGPT 26 U/L (13-56); Albumin, Serum 3.7 g/dL (3.2-5.0); Alkaline Phosphatase 73 U/L (45-117); Anion Gap 6 (5-15); BUN 15 mg/dL (7-18); BUN/Creat Ratio 21.6 RATIO (10-20); Calcium,Total 8.6 mg/dL (8.5-10.1); Chloride 106 mmol/L (98-107); EST Glomerular Filtration Rate 90 mL/min (>60); Est Glom Filt Rate - Afr Amer 109 mL/min (>60); Globulin 3.1 g/dL (2.2-4.2); Glucose 120 mg/dL (74-106); Lipase 228 U/L (73-393); Potassium 3.4 mmol/L (3.5-5.1); Protein, Total 6.8 g/dL (6.4-8.2); Sodium Level 142 mmol/L (136-145)
== END ==
PROVIDERS: Family Provider Internal Medicine; PCP Internal Medicine; Referring Provider Nurse Practitioner Primary Care; Visit Provider Nurse Practitioner Primary Care
DX: R10.84 Generalized abdominal pain (principal); R19.7 Diarrhea, unspecified
CPT/HCPCS: 36415; 80053; 81001; 83690; 85027; 87086; 87088

== ENCOUNTER → 2019-12-16 10:53 | Outpatient (CLI) | payer MEDICARE, SELFPAY ==
[2019-09-03 09:21] VITALS: BMI 20.2
[2019-12-16 12:03] LABS: Absolute Lymphocyte Count 1.45 X10^3/uL (0.83-4.51); Absolute Neutrophil Count 2.9 X10^3/uL (2.0-7.7); Basophil# 0.03 X10^3/uL; Basophil% 0.6 % (0-1); Eosinophil# 0.08 X10^3/uL; Eosinophils% 1.6 % (0-5); Hematocrit 44.9 % (37-47); Hemoglobin 14.5 g/dL (12.0-15.0); Lymphocyte # 1.45 X10^3/ul (4.0); Lymphocyte % 29.9 % (19-41); Mean Corp Hgb Conc 32.3 g/dL (32-36); Mean Corpuscular Hgb 29.3 pg (27.0-32.0); Mean Corpuscular Volume 90.7 fL (81-99); Mean Platelet Vol. 10.2 fl (6.2-12.0); Monocyte# 0.36 X10^3/uL; Monocyte% 7.4 % (0-10); NRBC Flagged by Analyzer 0 % (0-5); Neutrophil % 59.9 % (47-70); Platelet Count 170 K/mm3 (150-450); RBC Distribution Width CV 12.5 % (11.6-14.6); RBC Distribution Width SD 40.9 fl (35.1-43.9); Red Blood Count 4.95 M/mm3 (4.2-5.4); White Blood Count 4.9 K/mm3 (4.4-11.0)
[2019-12-16 12:36] LABS: T3 Total - Triiodothyronine 1.17 ng/mL (0.6-1.81)
[2019-12-16 12:40] LABS: ALB/GLOB Ratio 1.3 RATIO (0.9-2.4); AST(SGOT) 21 U/L (15-37); Alanine Aminotransfer ALT/SGPT 20 U/L (13-56); Albumin, Serum 4.2 g/dL (3.2-5.0); Alkaline Phosphatase 83 U/L (45-117); Anion Gap 6 (5-15); BUN 15 mg/dL (7-18); BUN/Creat Ratio 24.1 RATIO (10-20); Calcium,Total 8.9 mg/dL (8.5-10.1); Chloride 103 mmol/L (98-107); Creatinine, Serum 0.62 mg/dL (0.55-1.02); EST Glomerular Filtration Rate 102 mL/min (>60); Est Glom Filt Rate - Afr Amer 123 mL/min (>60); Ferritin 58 ng/mL (8-252); Globulin 3.3 g/dL (2.2-4.2); Glucose 84 mg/dL (74-106); Potassium 3.4 mmol/L (3.5-5.1); Protein, Total 7.5 g/dL (6.4-8.2); Sodium Level 139 mmol/L (136-145); T4 Free Direct 0.98 ng/dL (0.76-1.46); Thyroid Stim Hormone (TSH) 2.68 uIU/mL (0.358-3.74)
[2019-12-17 14:01] LABS: Thyroid Peroxidase AB < 9 IU/mL (0-34)
== END ==
PROVIDERS: PCP Internal Medicine; Referring Provider Dermatology Pediatric Dermatology; Visit Provider Dermatology Pediatric Dermatology
DX: L63.8 Other alopecia areata (principal); L64.8 Other androgenic alopecia
CPT/HCPCS: 36415; 80053; 82728; 84439; 84443; 84480; 85025; 86376

== ENCOUNTER 2020-10-11 16:30 | Outpatient (RCR) | payer MEDICARE, SELFPAY ==
--- NOTE | 2020-11-01 14:22 | HP.PTEVAL_ITS ---
Patient's Visit Information NIC CATES is a 65 year old F referred to Physical Therapy by Dr. Viviane Hansen DO with a diagnosis of L slap tear/subarcomial impingement. Date of Evaluation: 10/11/20 Physical Therapist: Lindsey Chacko DPT - Visit Plan Frequency: 2x /Week Duration: 4 Weeks Plan: L Slap tear- L hand dominant- given HEP at IE, to report back in 4 weeks to evaluate progress. IE HEP: BTB and GTB- mid row, IR/ER, abduction, LAE, sidelying ER - Subjective L SLAP tear May- coming off zipline, and when stepping off and pulled at arms. Imaging- x-ray (Dr. Alarcon- gave cortizone a couple weeks ago- got some relief)- does not want another one. Pain: no pain, reach up high or reach back increase pain, reaching seatbelt 5/10. pain is getting better and less epispodes of increased pain. sometimes sharp more hurt- dull thinks it is getting better. pain in posterior shoulder. Sleep: now is able to lay on that side, does not wake her up --mom lives with her and is 92 and tends to her. denies numbness and tingling. Occupation: does not work outside of house. Meds: none. PMHx: fusion in neck (just went to chiropractor), has some autoimmune dx. goals: wants a HEP - Objective Posture: FH,RS. Gait: decreased arm swing, holding purse with affected arm. Observation: L hand dominant. palpation: no tenderness along the joint line and down deltoid. ROM: shoulder: WFL in all planes, elbow: WFL, hand: WFL. Strength: shoulder: flex: 4/5, ext 4/5, abd 4/5, ER/IR 4/5. elbow: 5/5, slitter processed film strength 5/5 - Goals Goal 1:: Pt trisha be I with HEP and progression Goal Time Frame: 4-6 Weeks Goal 2:: Pt will report 1 week of 0/10 pain in order to incraese I with functional mobility Goal Time Frame: 4-6 Weeks Goal 3:: Pt will maintain proper posture throughout treatment session in order to improve scapular stabilization. Goal Time Frame: 4-6 Weeks - Rehabilitation Potential Physical Therapy Diagnosis: Pt presents with decrease strength and poor posture affecting I functional mobility tasks. Rehabilitation Potential: Good - Anticipated Interventions Patient/Client Instruction: Educate patient on: Plan of Care For the Purpose of:: To improve muscle performance and motor function Therapeutic Exercise to Include: Strength training, Power training, Balance training, Coordination, Agility training, Body mechanics, Postural training, Flexibilty training, Passive ROM, Active ROM, Scapular Strength/Stabilization For the Purpose of:: To increase tolerance to activity/condition/position Thank you for the opportunity to evaluate your patient. For Medicare and Medicare HMO plans, please review the plan of care and approve it. It will need to be FAXED BACK to us at [phone] for Medicare purposes. For Medicare only, by signing this I certify the plan of care. Please let me know if there are questions or concerns regarding this plan of care. Physician Signature: Date:
--- NOTE | 2020-12-30 10:39 | HP.PT.NRP ---
NIC CATES was seen in my office for initial evaluation on 10/11/20. The following Plan of Care was established for this patient: Initial Frequency: 2x /Week Initial Duration: 4 Weeks Patient/Client Instruction: Educate patient on: Plan of Care For the Purpose of:: To improve muscle performance and motor function Therapeutic Exercise to Include: Strength training, Power training, Balance training, Coordination, Agility training, Body mechanics, Postural training, Flexibilty training, Passive ROM, Active ROM, Scapular Strength/Stabilization For the Purpose of:: To increase tolerance to activity/condition/position This patient was last seen in our office . Pertinent comments regarding their Physical therapy will appear below: Patient has not attended PT in over 30 days, appropriate for d/c and return to MD for further evaluation as needed. At this point I will be discontinuing this patient from physical therapy. I would be happy to see this patient again in the future if found appropriate by the physician. Thank you! CHRISTIAN RossT
== END 2020-10-11 19:00 | disposition home or self-care (01) ==
LOC: PT 16:30
PROVIDERS: PCP Internal Medicine; Referring Provider Orthopaedic Surgery; Visit Provider Orthopaedic Surgery
DX: S43.432D Superior glenoid labrum lesion of left shoulder, subsequent encounter (principal); M25.812 Other specified joint disorders, left shoulder
CPT/HCPCS: 97162; 97530